=== PATIENT | male | born 1955 | race Caucasian/White ===

== ENCOUNTER 2024-12-07 13:24 | Outpatient (OUT) | payer MEDICARE, OTHER, SELFPAY ==
--- NOTE | 2024-12-07 14:47 | P.CN_ITS ---
Consult Note: HPI Data of Consult Patient: new to practice Consult date: 12/07/24 Requesting Physician: Rebecca Zavala MD Primary Care Provider: LEVAR MOLINA Consult Narrative Reason for consult: bilateral hip, knee pain Narrative: 69yom who presents for evaluation. longstanding history of bilateral hip, knee pain. extensive surgical history, has had lumbar surgery in past. main complaint is difficulty walking any distance. denies any adverse med side effects. cc:: CC: Rebecca Zavala MD Review of Systems ROS Status of ROS 10 or more systems reviewed and unremark able except as noted in history and below Exam Narrative Exam Narrative: Psych-alert and oriented x 3.? Attentive and appropriate, constitutionally normal, displays normal mood and affect per situation.? There are no obvious deficits in memory, reasoning, or intellect.? Skin-no obvious rashes, bruising, erythema noted to the patient's area of pain. Extremities- extremities are warm with minimal edema and palpable pulses. Hip-tenderness to palpation is noted over the bilateral hip joint.? Pain is elicited with internal and external rotation of the hip.? Hip provocative maneuvers are positive and consistent with the patient's normal pain.? Knee-examination of the bilateral knee reveals tenderness to palpation over the superior, inferior, lateral, and medial aspect of the knee.? Some swelling is noted without erythema. Pain is elicited with flexion and extension of the knee both actively and passively.? Some grinding is noted with these motions.? There is no notable ligamental laxity or instability. Coordination remains intact.? Gait remains antalgic. Assessment and Plan Assessment and Plan (1) Bilateral hip pain: (2) Bilateral knee pain: Qualifiers: Chronicity: chronic Qualified Code(s): M25.561 - Pain in right knee; M25.562 - Pain in left knee; G89.29 - Other chronic pain (3) Low back pain: Qualifiers: Chronicity: chronic Back pain laterality: unspecified Sciatica presence: unspecified whether sciatica present Qualified Code(s): M54.50 - Low back pain, unspecified; G89.29 - Other chronic pain Plan 69yom who presents for evaluation. failed conservative measures, as noted. lumbar imaging reviewed, which shows disc bulge at l5-s1 with impingement of s1 nerve roots. given symptoms and exam, will have him undergo xr of sacrum, bilateral hips, and bilateral knees. he is in agreement. meds reviewed, no changes. i recommended that they contact the stimulator rep from [employer] to troubleshoot his battery issues. he expressed understanding. follow up in 2-3 weeks.
== END 2024-12-07 13:25 | disposition home or self-care (01) ==
PROVIDERS: PCP Family Medicine; Visit Provider Anesthesiology
DX: M25.551 Pain in right hip (principal); M25.552 Pain in left hip; M25.561 Pain in right knee; M25.562 Pain in left knee; G89.29 Other chronic pain; M54.50 Low back pain, unspecified; M16.0 Bilateral primary osteoarthritis of hip; M17.0 Bilateral primary osteoarthritis of knee
CPT/HCPCS: G0463

== ENCOUNTER 2024-12-07 14:45 | Outpatient (OUT) | payer MEDICARE, OTHER, SELFPAY ==
--- NOTE | 2024-12-07 15:00 | XR_ITS ---
The [address] [address] Patient Name: CIARA MUNOZ MRN: [id number] date: 1955 Sex: M Assigned Patient Location: [facility] Current Patient Location: Accession/Order Number: [id number] Exam Date: 12/08/2024 08:03 Report Date: 12/08/2024 08:17 At the request of: CARLOS TEAGUE MD Procedure: XR knee MAIRA 4V CLINICAL DATA: Chronic bilateral hip, knee and tailbone pain with difficulty ambulating. BILATERAL HIPS - 2 views each COMPARISON: None AP and frog-lateral views were obtained. There are no acute fractures or dislocation. The hip joint spaces are maintained. There is marginal spurring at the periphery of the femoral heads as well as the superior acetabulum where there is minor subchondral cystic change. There are enthesophytes at the trochanters and ischial tuberosities. No soft tissue abnormalities are noted. XR/XR hip MAIRA IMPRESSION: DEGENERATIVE CHANGES. NO ACUTE BONY FINDINGS. SACRUM AND COCCYX -3 views COMPARISON: None Lateral as well as AP views in upward and downward projection were obtained. There is osteopenia. No fracture or displacement is identified. The SI joints and sacral foramen appear intact. There is minimal sclerosis at the SI joints. There is prior laminectomy and fusion involving the lower imaged lumbar spine. There is also a battery pack on the left that extends up to the spine. No soft tissue abnormalities are seen. IMPRESSION: NO ACUTE BONY FINDINGS. BILATERAL KNEES - 4 views each COMPARISON: None AP, lateral and both oblique views were obtained. There is osteopenia. There are no acute fractures or dislocation. Slight medial tibiofemoral joint compartment narrowing is present bilaterally. Minor marginal spurring is seen, greatest at the posterior patella. There are enthesophytes at the insertion of the quadriceps tendons. No knee effusions or focal soft tissue swelling are noted. There is atherosclerotic disease. IMPRESSION: MINOR DEGENERATIVE CHANGES. NO ACUTE BONY FINDINGS. Impression dictated by: Alyson Negro M.D. 12/08/2024 8:17 AM Dictation Location: [place] [address] Electronically authenticated by: [id number] Y Date: 12/08/2024 08:17
--- NOTE | 2024-12-07 15:00 | XR_ITS ---
The [address] [address] Patient Name: CIARA MUNOZ MRN: [id number] date: 1955 Sex: M Assigned Patient Location: [facility] Current Patient Location: Accession/Order Number: [id number] Exam Date: 12/08/2024 08:03 Report Date: 12/08/2024 08:17 At the request of: CARLOS TEAGUE MD Procedure: XR knee MAIRA 4V CLINICAL DATA: Chronic bilateral hip, knee and tailbone pain with difficulty ambulating. BILATERAL HIPS - 2 views each COMPARISON: None AP and frog-lateral views were obtained. There are no acute fractures or dislocation. The hip joint spaces are maintained. There is marginal spurring at the periphery of the femoral heads as well as the superior acetabulum where there is minor subchondral cystic change. There are enthesophytes at the trochanters and ischial tuberosities. No soft tissue abnormalities are noted. XR/XR sacrum coccyx min 2V IMPRESSION: DEGENERATIVE CHANGES. NO ACUTE BONY FINDINGS. SACRUM AND COCCYX -3 views COMPARISON: None Lateral as well as AP views in upward and downward projection were obtained. There is osteopenia. No fracture or displacement is identified. The SI joints and sacral foramen appear intact. There is minimal sclerosis at the SI joints. There is prior laminectomy and fusion involving the lower imaged lumbar spine. There is also a battery pack on the left that extends up to the spine. No soft tissue abnormalities are seen. IMPRESSION: NO ACUTE BONY FINDINGS. BILATERAL KNEES - 4 views each COMPARISON: None AP, lateral and both oblique views were obtained. There is osteopenia. There are no acute fractures or dislocation. Slight medial tibiofemoral joint compartment narrowing is present bilaterally. Minor marginal spurring is seen, greatest at the posterior patella. There are enthesophytes at the insertion of the quadriceps tendons. No knee effusions or focal soft tissue swelling are noted. There is atherosclerotic disease. IMPRESSION: MINOR DEGENERATIVE CHANGES. NO ACUTE BONY FINDINGS. Impression dictated by: Alyson Negro M.D. 12/08/2024 8:17 AM Dictation Location: [place] [address] Electronically authenticated by: [id number] Y Date: 12/08/2024 08:17
--- NOTE | 2024-12-07 15:00 | XR_ITS ---
The [address] [address] Patient Name: CIARA MUNOZ MRN: [id number] date: 1955 Sex: M Assigned Patient Location: [facility] Current Patient Location: Accession/Order Number: [id number] Exam Date: 12/08/2024 08:03 Report Date: 12/08/2024 08:17 At the request of: CARLOS TEAGUE MD Procedure: XR knee MAIRA 4V CLINICAL DATA: Chronic bilateral hip, knee and tailbone pain with difficulty ambulating. BILATERAL HIPS - 2 views each COMPARISON: None AP and frog-lateral views were obtained. There are no acute fractures or dislocation. The hip joint spaces are maintained. There is marginal spurring at the periphery of the femoral heads as well as the superior acetabulum where there is minor subchondral cystic change. There are enthesophytes at the trochanters and ischial tuberosities. No soft tissue abnormalities are noted. XR/XR knee MAIRA 4V IMPRESSION: DEGENERATIVE CHANGES. NO ACUTE BONY FINDINGS. SACRUM AND COCCYX -3 views COMPARISON: None Lateral as well as AP views in upward and downward projection were obtained. There is osteopenia. No fracture or displacement is identified. The SI joints and sacral foramen appear intact. There is minimal sclerosis at the SI joints. There is prior laminectomy and fusion involving the lower imaged lumbar spine. There is also a battery pack on the left that extends up to the spine. No soft tissue abnormalities are seen. IMPRESSION: NO ACUTE BONY FINDINGS. BILATERAL KNEES - 4 views each COMPARISON: None AP, lateral and both oblique views were obtained. There is osteopenia. There are no acute fractures or dislocation. Slight medial tibiofemoral joint compartment narrowing is present bilaterally. Minor marginal spurring is seen, greatest at the posterior patella. There are enthesophytes at the insertion of the quadriceps tendons. No knee effusions or focal soft tissue swelling are noted. There is atherosclerotic disease. IMPRESSION: MINOR DEGENERATIVE CHANGES. NO ACUTE BONY FINDINGS. Impression dictated by: Alyson Negro M.D. 12/08/2024 8:17 AM Dictation Location: [place] [address] Electronically authenticated by: [id number] Y Date: 12/08/2024 08:17
== END 2024-12-07 14:46 | disposition home or self-care (01) ==
LOC: RAD 14:47
PROVIDERS: PCP Family Medicine; Visit Provider Anesthesiology
DX: M25.551 Pain in right hip (principal); M25.552 Pain in left hip; M25.561 Pain in right knee; M25.562 Pain in left knee; M16.0 Bilateral primary osteoarthritis of hip; M17.0 Bilateral primary osteoarthritis of knee
CPT/HCPCS: 72220; 73522; 73564

== ENCOUNTER 2024-12-23 09:58 | Outpatient (OUT) | payer MEDICARE, OTHER, SELFPAY ==
--- OUTSIDE RECORDS SUMMARY | 2024-12-23 09:59 | XMS_ITS | Encounter Summary ---
Author Organization [facility] Address [address] [place] [address] Phone Care Team Providers Care Paste Thinner Name Role Phone David Pérez MD Primary Care Provider Reason for Referral * Imaging (Routine) - Closed Specialty Diagnoses / Procedures Referred By Meri carballo Referred To Contact Radiology Diagnoses Pain in left shoulder Procedures CT shoulder left wo IV contrast Valerio Yu DO Phone: tel: fax: Referral ID Status Reason Start Date Expiration Date V isits Requested Visits Authorized [id number] Closed Perform Procedure 09/23/2023 09/22/2024 1 1 Encounter Details Date Type Department Care Team (Latest Contact Info) Description 09/23/2023 Transcribe Orders [facility] [address] [place] [phone] Valerio Yu DO [address] [place] [address] Pain in left shoulder (Primary Dx) Social History Tobacco Use Types Packs/Day Years Used Date Smoking Tobacco: Never Assessed Sex and Gender Information Value Date Recorded Sex Assigned at Not on file Legal Sex Male 8:27 PM EST Gender Identity Not on file Sexual Orientation Not on file COVID-19 Exposure Response Date Recorded In the last 10 days, have yo u been in contact with someone who was confirmed or suspected to have Coronavirus/COVID-19? No / Unsure 09/23/2023 11:31 AM EDT documented as of this encounter Plan of Treatment Not on file documented as of this encounter Results * CT shoulder left wo IV contrast (09/23/2023 12:25 PM EDT) Anatomical Region Laterality Modality Musculoskeletal Left Computed Tomogra phy 09/24/2023 3:34 PM EDT 09/24/2023 3:34 PM EDT Impressions 09/24/2023 3:33 PM EDT Reverse left total shoulder arthroplasty with 6 mm gap between the glenoid component-bone interface and protrusion of 3 superior glenoid screws into the spinoglenoid notch by approximately 11 mm. MACRO: None Signed by: Laina Presley 09/24/2023 3:33 PM Dictation workstation: [id number] Narrative 09/24/2023 3:33 PM EDT Interpreted By: Laina Presley, STUDY: CT SHOULDER LEFT WO IV CONTRAST; 09/23/2023 12:25 pm INDICATION: Signs/Symptoms:RIGHT SHOULDER PAIN. COMPARISON: CT shoulder 04/02/2023. ACCESSION NUMBER(S): [id number] ORDERING CLINICIAN: VALERIO YU TECHNIQUE: CT imaging of the left shoulder was obtained without administration of intravenous contrast medium. Coronal and sagittal reformatted images were performed. 3D reconstruction was performed at an independent workstation and reviewed by the interpreting radiologist. FINDINGS: OSSEOUS STRUCTURES: Status post interval reverse total shoulder arthroplasty. There is a gap at the glenoid component-bone interface measuring up to 6 mm (series 1012, image 65). The most superior 3 glenoid screws protrude through the superomedial cortex of the glenoid by approximately 11 mm into the spinoglenoid notch (series 1012, image 67). No hardware fracture. No glenoid notching. No acromial fracture. Severe acromioclavicular osteoarthritis. No sizable glenohumeral joint effusion. SOFT TISSUES: Muscle bulk is maintained. No subcutaneous. For reassurance. Unchanged inferior left thyroid calcifications. Imaged left lung is clear. Procedure Note Laina Presley, DO - 09/24/2023 Interpreted By: Laina Presley, STUDY: CT SHOULDER LEFT WO IV CONTRAST; 09/23/2023 12:25 pm INDICATION: Signs/Symptoms:RIGHT SHOULDER PAIN. COMPARISON: CT shoulder 04/02/2023. ACCESSION NUMBER(S): [id number] ORDERING CLINICIAN: VALERIO YU TECHNIQUE: CT imaging of the left shoulder was obtained without administration of intravenous contrast medium. Coronal and sagittal reformatted images were performed. 3D reconstruction was performed at an independent workstation and reviewed by the interpreting radiologist. FINDINGS: OSSEOUS STRUCTURES: Status post interval reverse total shoulder arthroplasty. There is a gap at the glenoid component-bone interface measuring up to 6 mm (series 1012, image 65). The most superior 3 glenoid screws protrude through the superomedial cortex of the glenoid by approximately 11 mm into the spinoglenoid notch (series 1012, image 67). No hardware fracture. No glenoid notching. No acromial fracture. Severe acromioclavicular osteoarthritis. No sizable glenohumeral joint effusion. SOFT TISSUES: Muscle bulk is maintained. No subcutaneous. For reassurance. Unchanged inferior left thyroid calcifications. Imaged left lung is clear. IMPRESSION: Reverse left total shoulder arthroplasty with 6 mm gap between the glenoid component-bone interface and protrusion of 3 superior glenoid screws into the spinoglenoid notch by approximately 11 mm. MACRO: None Signed by: Laina Presley 09/24/2023 3:33 PM Dictation workstation: [id number] us Valerio Yu DO IMG CT PROCEDURES Final Res ult documented in this encounter Visit Diagnoses Diagnosis Pain in left shoulder- Primary Pain in left shoulder documented in this encounter Care Teams Paste Thinner Relationship Specialty Start Date End Date David Pérez MD PCP - General Family Medicine 04/02/23 documented as of this encounter
--- OUTSIDE RECORDS SUMMARY | 2024-12-23 09:59 | XMS_ITS | Encounter Summary ---
Author Organization [facility] Address [address] [facility] 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 No / Unsure 01/15/2024 1:55 PM EDT documented as of this encounter Plan of Treatment Not on file documented as of this encounter Visit Diagnoses Diagnosis Postprocedural seroma of a musculoskeletal structure following a musculoskeletal system procedure- Primary documented in this encounter Care Teams Bi Technical Lead Relationship Specialty Start Date End Date David Pérez MD PCP - General Family Medicine 04/02/23 documented as of this encounter
--- OUTSIDE RECORDS SUMMARY | 2024-12-23 10:01 | XMS_ITS | Encounter Summary ---
Author Organization [facility] Address [address] [facility] [place] [address] Phone Care Team Providers Care Child Support Investigator Name Role Phone David Pérez MD Primary Care Provider Reason for Referral * Imaging (Routine) - Authorized Specialty Diagnoses / Procedures Referred By Meri carblalo Referred To Contact Radiology Diagnoses Primary osteoarthritis, left shoulder Procedures CT shoulder left wo IV contrast Valerio Yu DO Phone: tel: fax: Referral ID Status Reason Start Date Expiration Date Visits Requested Visits Authorized [id number] Authorized Perform Procedure 3 04/01/2024 1 1 Encounter Details Date Type Department Care Team (Latest Contact Info) Description 04/02/2023 Transcribe Orders [facility] [address] [address] [place] [phone] Valerio Yu DO [address] [place] [address] Primary osteoarthritis, left shoulder (Primary Dx) Social History Tobacco [...] suspected to have Coronavirus/COVID-19? No / Unsure 04/02/2023 11:27 AM EDT documented as of this encounter Plan of Treatment Not on file documented as of this encounter Results * CT shoulder left wo IV contrast (04/02/2023 12:09 PM EDT) Anatomical Region Laterality Modality Musculoskeletal Left Computed Tomogra phy 04/02/2023 12:5 3 PM EDT 04/02/2023 12:53 PM EDT Impressions 04/02/2023 12:52 PM EDT Moderate AC joint and glenohumeral osteoarthrosis. Signed by: Teo Baum 04/02/2023 12:52 PM Dictation workstation: [id number] Narrative 04/02/2023 12:52 PM EDT Interpreted By: Teo Baum, STUDY: CT SHOULDER LEFT WO IV CONTRAST; 04/02/2023 12:09 pm INDICATION: Signs/Symptoms:left shoulder arthritis; /preop left shoulder/follow-up after MRI shoulder/left neck shoulder elbow and arm pain according to note COMPARISON: None ACCESSION NUMBER(S): [id number] ORDERING CLINICIAN: VLAERIO YU TECHNIQUE: Contiguous axial images were obtained through the left shoulder. FINDINGS: No acute fracture or dislocation is identified. Cervical fixation plate can be seen. Moderate to severe AC joint osteoarthrosis and glenohumeral osteoarthrosis is seen. Limited visualization of the left intrathoracic structures are grossly unremarkable. Procedure Note Teo Baum MD - 04/02/2023 Interpreted By: Teo Baum, STUDY: CT SHOULDER LEFT WO IV CONTRAST; 04/02/2023 12:09 pm INDICATION: Signs/Symptoms:left shoulder arthritis; /preop left shoulder/follow-up after MRI shoulder/left neck shoulder elbow and arm pain according to note COMPARISON: None ACCESSION NUMBER(S): [id number] ORDERING CLINICIAN: VALERIO YU TECHNIQUE: Contiguous axial images were obtained through the left shoulder. FINDINGS: No acute fracture or dislocation is identified. Cervical fixation plate can be seen. Moderate to severe AC joint osteoarthrosis and glenohumeral osteoarthrosis is seen. Limited visualization of the left intrathoracic structures are grossly unremarkable. IMPRESSION: Moderate AC joint and glenohumeral osteoarthrosis. Signed by: Teo Baum 04/02/2023 12:52 PM Dictation workstation: [id number] Valerio Yu DO IMG CT PROCEDURES Final Res ult documented in this encounter Visit Diagnoses Diagnosis Primary osteoarthritis, left shoulder- Primary Primary osteoarthritis, left shoulder documented in this encounter Care Teams Child Support Investigator Relationship Specialty Start Date End Date David Pérez MD PCP - General Family Medicine 04/02/23 documented as of this encounter
--- NOTE | 2024-12-23 10:38 | PM.CN ---
Consult Note: HPI Data of Consult Patient: known to practice within the last 3 years Requesting Physician: Audrey Angle NP Primary Care Provider: LEVAR MOLINA Consult Narrative Reason for consult: f/u Narrative: Tito Guillen a pleasant 69 year old male with chronic bilateral knee, bilateral hip, and chronic moderate to severe low back pain post lumbar surgery. Per pt request will address low back pain as the focus today. Pt has noticed significant increase in his low back pain over the last 3 months, moreso the lsat 6 weeks, he had a fall with injury of ribs in september but the back pain was tolerable at this time. PCP recently completed a lumbar xray, no report available but pt reports inflammation , and increased prednisone. pt currently utilizing tylenol, prednisone, gabapentin, meloxicam, and thc gummies without improvement. pain today 9-10/10 sharp low back pain increasing with standing, weightbearing, activity, bending, twisting. cc:: CC: Audrey Angel NP Review of Systems ROS Musculoskeletal Reports: back pain and joint pain Meds Home Medications and Allergies Home Medications �Medication �Instructions �Recorded �Confirmed �Type acetaminophen 500 mg tablet 1,000 mg PO BID PRN pain 12/09/24 12/09/24 History (Acetaminophen Extra Strength) atenolol 100 mg tablet 100 mg PO DAILY 12/09/24 12/09/24 History calcium phosphate,dibasic 77 tab PO 12/09/24 History mg-vitamin D3 400 unit tablet camphor-menthol 0.2 %-3.5 % 1 applic topical TID-QID PRN pain 12/09/24 12/09/24 History topical gel citalopram 40 mg tablet (Celexa) 40 mg PO DAILY 12/09/24 12/09/24 History diclofenac sodium 1 % topical gel 2 g topical QID 12/09/24 12/09/24 History (Voltaren Arthritis Pain) docusate sodium 100 mg capsule 200 mg PO DAILY 12/09/24 12/09/24 History (Colace) furosemide 20 mg tablet (Lasix) 20 mg PO DAILY 12/09/24 12/09/24 History gabapentin 600 mg tablet 600 mg PO BID 12/09/24 12/09/24 History golimumab 12.5 mg/mL intravenous IV 12/09/24 History solution (Simponi ARIA) levothyroxine 50 mcg tablet 50 mcg PO DAILY 12/09/24 12/09/24 History (Synthroid) lisinopril 20 mg tablet 20 mg PO DAILY 12/09/24 12/09/24 History meloxicam 7.5 mg tablet 7.5 mg PO DAILY 12/09/24 12/09/24 History metformin 1,000 mg tablet 1,000 mg PO BID 12/09/24 12/09/24 History multivitamin 1 tab PO DAILY 12/09/24 12/09/24 History pantoprazole 20 mg tablet,delayed 20 mg PO DAILY 12/09/24 12/09/24 History release pravastatin 10 mg tablet 10 mg PO DAILY 12/09/24 12/09/24 History prednisone 5 mg tablet 5 mg PO DAILY PRN pain 12/09/24 12/09/24 History spironolactone 25 1 tab PO DAILY 12/09/24 12/09/24 History mg-hydrochlorothiazide 25 mg tablet sulfasalazine 500 mg tablet 1,000 mg PO BID 12/09/24 12/09/24 History tamsulosin 0.4 mg capsule (Flomax) 0.4 mg PO DAILY 12/09/24 12/09/24 History Allergies Allergy/AdvReac Type Severity Reaction Status Date / Time paroxetine Allergy Mild Rash Verified 12/09/24 14:21 Exam Constitutional Documenting provider has reviewed patient's vital signs: yes Common normals: no apparent distress, oriented x3, healthy appearing, alert and well nourished General appearance: cooperative [facility] Common normals: normocephalic, hearing grossly normal bilaterally and moist oral mucous membranes Head and scalp: normocephalic Eye Common normals: PERRL Pupil: PERRL Neck & C-Spine Common normals: full ROM General: normal visual inspection Chest Common normals: inspection of chest normal Respiratory Common normals: normal respiratory effort, no retractions and no use of accessory muscles Back & Pelvis Lumbar spine/lower back: ROM limited, pain with ROM and lumbar spinal tenderness Sacroiliac joints: SI joint(s) abnormal Other: left sij positive chung(patricks), gaenslens, thigh thrust, compression test strength 5/5 in BLE positive facet loading Neuro Common normals: oriented x3 Sensorium/orientation: alert Psych Common normals: mental status grossly normal, thought process normal, cooperative, affect normal, speech normal and activity/motor behavior normal Speech: normal speech Thought process: normal thought process Results Additional Findings Additional findings: If on a controlled substance or opioids, I have checked an [place] report on this patient and there are no aberrancies noted in the prescribing history.��If on a controlled substance or opioid a drug screen was completed and reviewed within the last year, and if there has not been a drug screen completed we ordered one today to monitor higher risk, state monitored pain medication use. As part of providing excellent, safe, comprehensive care, the following was completed at our patient's visit: 1. A medication reconciliation and review to ensure accurate knowledge of current/active medications, including asking our patients to inform us about any [id number] medications or herbal remedies/nutritional supplements/alternative remedies. 2. A review to specifically ensure our patients have had annual screening for screening for depression, screening for tobacco use, and screening for unhealthy alcohol use. For concerning screenings had a discussion with the patient, provided patient education, and recommended follow-up with primary care provider when appropriate. If patient noted with a risk of falling, they received education on strength, gait, and balance training to prevent future risk of falling. Portions of this note may have been carried over from the previous visit and updated as appropriate. Please note this office utilizes paper charting in addition to the electronic medical record. A list of current medications, vitals, and PMH is available there as the clinical staff outside of myself do not have access to [employer] charting during the clinic day operations. As part of providing quality comprehensive care the current medications, vitals, and PMH were reviewed in the paper chart. Assessment and Plan Assessment and Plan (1) Failed back syndrome: Assessment and Plan: The patient has had over 3 months of moderate to severe low back pain with functional impairment and inadequate response to conservative care including NSAIDS (unless there are contraindication such as concurrent blood thinners), multiple oral or topical pain medications, and home exercise program/physical therapy.� Patient has completed >6 weeks of guided home exercise program and/or formal physical therapy program without relief of their symptoms.� The Oswestry Disability Index was completed, and the patient scored a 50%.� The patient noted the following:�� moderate to severe pain impacting ADLs, sitting, standing, sleeping, social life, travel We discussed the risks and benefits of the procedure with the patient, and we are NOT planning on using sedation as outlined in the guidelines from Medicare unless there is a documented reason that sedation would be strongly recommended.�� �The procedure will be completed with fluoroscopic guidance.� (2) Sacroiliitis: (3) Bilateral knee pain: Assessment and Plan: bilateral knee OA based on xray imaging, consider joint injections Qualifiers: Chronicity: chronic Qualified Code(s): M25.561 - Pain in right knee; M25.562 - Pain in left knee; G89.29 - Other chronic pain (4) Bilateral hip pain: Assessment and Plan: mild OA based on xray imaging, consider joint injections (5) Myalgia, other site: Plan at this time update lumbar MRI with and without contrast to assess failed back syndrome contact information provided for [email or web address], has a scs in place but is not finding benefit and would like the device evaluated. can consider swapping out for [employer] in the future proceed with left SIJ injection under fluoroscopy for sacroilitis start baclofen 5-10mg BID PRN pain/spasms, risks vs benefits reviewed. concerned for polypharmacy and increased dizziness/drowsiness. pt to utilize sparingly continue medication management through PCP f/u to review imaging and 2 weeks after SIJ injection. will revisit chronic joint pain at that time
== END 2024-12-23 09:59 | disposition home or self-care (01) ==
PROVIDERS: PCP Family Medicine; Visit Provider Nurse Practitioner
DX: M25.561 Pain in right knee (principal); M96.1 Postlaminectomy syndrome, not elsewhere classified; M46.1 Sacroiliitis, not elsewhere classified; M25.562 Pain in left knee; G89.29 Other chronic pain; M25.551 Pain in right hip; M25.552 Pain in left hip; M79.18 Myalgia, other site
CPT/HCPCS: G0463

== ENCOUNTER 2025-01-06 11:40 | Outpatient (OUT) | payer MEDICARE, OTHER, SELFPAY ==
--- OUTSIDE RECORDS SUMMARY | 2024-12-31 20:39 | XMS_ITS | Continuity of Care Document ---
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 Role Phone David Pérez MD Primary Care Provider Dmitry Eugene MD Attending Provider Latanya Villeda Attending Provider Care Teams Patient Care Team Team Status: Active Member Role Status Dates David Préez MD Primary Care Provider Active Visit Care Team Team Status: Inactive Member Role Status Dates David Pérez MD Primary Care Provider Active Start: November 05, 2024 End: November 05, 2024 Dmitry Eugene MD Attending Provider Active St art: November 05, 2024 End: November 05, 2024 Patient Care Team Team Status: Inactive Member Role Status Dates David Pérez MD Primary Care Provider Active Start: December 31, 2024 End: December 31, 2024 HA Canela Attending Provider Active Start: December 31, 2024 End: December 31, 2024 Chief Complaint and Reason for Visit Chief Complaint Admit Date l40.51 November 05, 2024 10:48 am L40.51 Z79.899 December 31, 2024 12:4 9pm Allergies, Adverse Reactions, Alerts Allergen Type Severity Reaction Last Updated Verified Status paroxetine Allergy Unknown rash April 02, 2024 9:22am Yes Active Social History Smoking Status Status Start Date End Date Date of Observa tion Ex-smoker (finding) January 102023 10:42am Observation Status Observation Response Date of Response Legal Sex Male (finding) Sex Assigned At Male 1955 Family History Relationship Condition Age at Onset Recorded Date/T robb father Malignant neoplasm Unknown Unknown mother Unknown Diabetes mellitus Unknown Problems Active Problems Medical Problem Onset Date Status Trochanteric bursitis of both hips Unknown Active Cirrhosis of liver Unknown Active History of lumbar fusion Unknown Active Arthropathy of both hips Unknown Active History of shoulder replacement Unknown Active Medications Medication Status Dose Units Route Directions Qty Days St art Date Stop Date End Date Instructions Adherence Metformin 500 MG tablet Discont inued 500 MG PO Twice daily [facility] 2016 1:00am 2023 10:36 am Sulfasalazi ne 500 MG tablet Discont inued 1000 MG PO Twice daily [facility] 2016 1:00am 2023 10:36 am Atenolol 100 MG tablet Active 100 MG PO Daily [facility] 2016 1:00am Unknown Hydrochloro thiazide 50 MG tablet Discont inued 50 MG PO Daily [facility] 2016 1:00am Oct er 2023 9:30a m Lisinopril 20 MG tablet Discont inued 20 MG PO Daily [facility] 2016 1:00am 2023 10:36 am Citalopram 20 MG tablet Discont inued 20 MG PO Daily [facility] 2016 1:00am 2023 10:38 am Infliximab (Remicade) 100 mg Recon Soln Discont inued 700 ML IV EVERY 6 WEEKS [facility] 2016 1:00am 2023 10:35 am Aspirin-Dat taminophen- Caffeine 250-250-65 mg Tablet Discont inued 1 TAB PO EVERY 4-6 HOURS as needed for Pain [facility] 2016 1:00am 2023 10:27 am Cholecalcif ruslan (Vitamin D3) (Vitamin D3) 2,000 unit Tablet Discont inued 2000 UNIT PO Daily [facility] 2016 1:00am Oct er 2023 9:31a m Citalopram 20 mg tablet Active 40 MG PO Daily January 11, 2024 10:30a m Unknown Cholecalcif ruslan (Vitamin D3) (Vitamin D3) 50 mcg (2,000 unit) tablet Active 2000 UNIT PO Daily Octobe r 2023 9:30am Unknown Acetaminoph en 500 mg capsule Active 500 MG PO Every 6 hours as needed January 11, 2024 12:00a m Unknown Aspirin (Adult Aspirin Regimen) 81 mg tablet,angelica yed release (DR/EC) Discont inued 81 MG PO Daily January 11, 2024 12:00a m Octob er 2023 9:31a m Cephalexin 500 mg capsule Discont inued 500 MG PO Twice daily January 11, 2024 12:00a m Octob er 2023 9:31a m Docusate Sodium 100 mg capsule Discont inued 100 MG PO Daily January 11, 2024 12:00a m Octob er 2023 9:31a m Gabapentin 300 mg capsule Discont inued 300 MG PO Three times daily January 11, 2024 12:00a m Octob er 2023 9:29a m Spironolact on-Hydrochl orothiaz 25-25 mg tablet Active 1 TAB PO Daily January 11, 2024 12:00a m Unknown Levothyroxi ne 50 mcg capsule Active 50 MCG PO Daily January 11, 2024 12:00a m Unknown Lisinopril 20 mg tablet Active 20 MG PO Daily January 11, 2024 12:00a m Unknown Meloxicam 7.5 mg tablet Discont inued 7.5 MG PO Twice daily January 11, 2024 12:00a m Octob er 2023 9:30a m Metformin 1,000 mg tablet Active 1000 MG PO Twice daily January 11, 2024 12:00a m Unknown Multivitami n-Minerals- Lutein tablet Active 1 TAB PO Daily January 11, 2024 12:00a m Unknown Hydrocodone Bitartrate 10 mg capsule, oral only, ER 12hr Discont inued 10 MG PO Every 12 hours January 11, 2024 12:00a m Augus t 2023 10:39 am 1/2 tab - 1 tab BID PRN Pravastatin 10 mg tablet Active 10 MG PO Daily January 11, 2024 12:00a m Unknown Tamsulosin (Flomax) 0.4 mg capsule Discont inued 0.4 MG PO Daily January 11, 2024 12:00a m Octob er 2023 9:30a m Golimumab (Simponi Aria) 12.5 mg/mL solution Discont inued IV January 11, 2024 12:00a m Octob er 2023 9:31a m Oxycodone 5 mg capsule Discont inued 5 MG PO Every 6 hours as needed January 11, 2024 12:00a m Octob er 2023 9:30a m Golimumab (Simponi Aria) 12.5 mg/mL solution Active IV Octobe r 2023 9:25am every 8 weeks Unknown Docusate Sodium 100 mg capsule Active 200 MG PO Daily Octobe r 2023 9:30am Unknown Sulfasalazi ne 500 mg tablet Active 1 GM PO Twice daily Octobe r 2023 12:00a m give with food (meal/snack) Unknown Prednisone 5 mg tablet Active 10 MG PO Daily Octobe r 2023 12:00a m 1-2 tablets as needed Unknown Gabapentin 600 mg tablet Active 600 MG PO Three times daily Octobe r 2023 12:00a m Unknown Furosemide 20 mg tablet Active 20 MG PO Daily Octobe r 2023 12:00a m Unknown Relevant Diagnostic Tests and/or Laboratory Data Laboratory Results Test Collection Date/Time Result Date/Time Result Interpretation Reference Range Result Comment Performing Site Correcte d White Blood Count November 05, 2024 10:13am November 05, 2024 12:26pm 5.7 10*3/uL 4.1-10.5 [facility] [id number] [address] [facility] [address] Correcte d White Blood Count December 31, 2024 12:35pm December 31, 2024 4:23pm 5.6 10*3/uL 4.1-10.5 [facility] [id number] [address] [facility] [address] Uncorrec wendy WBC Count November 05, 2024 10:13am November 05, 2024 12:26pm 5.7 10*3/uL 4.1-10.5 [facility] [id number] [address] [facility] 264[address] Uncorrec wendy WBC Count December 31, 2024 12:35pm December 31, 2024 4:23pm 5.6 10*3/uL 4.1-10.5 [facility] [id number] [address] [facility] [address] Red Blood Count November 05, 2024 10:13am November 05, 2024 12:26pm 4.45 10*6/uL 3.90-5.60 [facility] [id number] [address] [facility] 78184 Red Blood Count December 31, 2024 12:35pm December 31, 2024 4:23pm 4.46 10*6/uL 3.90-5.60 [facility] [id number] [address] [facility] 9[address]92 Hemoglob in November 05, 2024 10:13am November 05, 2024 12:26pm 13.4 g/dL 13.0-17.0 [facility] [id number] [address] [facility] 8[address] Hemoglob in December 31, 2024 12:35pm December 31, 2024 4:23pm 13.2 g/dL 13.0-17.0 [facility] [id number] [address] [place] [address] Hematocr it November 05, 2024 10:13am November 05, 2024 12:26pm 38.9 % 38.8-50.0 [facility] [id number] [address] [place] [address]57 Hematocr it December 31, 2024 12:35pm December 31, 2024 4:23pm 39.6 % 38.8-50.0 [facility] [id number] [address] [facility] [address] Mean Corpuscu lar Volume November 05, 2024 10:13am November 05, 2024 12:26pm 87.5 fL 83.5-101 [facility] [id number] [address] [place] [address] Mean Corpuscu lar Volume December 31, 2024 12:35pm December 31, 2024 4:23pm 88.8 fL 83.5-101 [facility] [id number] [address] [place] [address] Mean Corpuscu lar Hemoglob in November 05, 2024 10:13am November 05, 2024 12:26pm 30.1 pg 27.5-35.2 [facility] [id number] [address] [facility] 116[address] Mean Corpuscu lar Hemoglob in December 31, 2024 12:35pm December 31, 2024 4:23pm 29.5 pg 27.5-35.2 [facility] [id number] [address] [facility] [address] Mean Corpuscu lar Hemoglob in [facility] November 05, 2024 10:13am November 05, 2024 12:26pm 34.4 g/dL 32.5-35.6 [facility] [id number] [address] [facility] [address] Mean Corpuscu lar Hemoglob in [facility] December 31, 2024 12:35pm December 31, 2024 4:23pm 33.3 g/dL 32.5-35.6 [facility] [id number] [address] [place] [address]996 Red Cell Distribu tion Width November 05, 2024 10:13am November 05, 2024 12:26pm 14.1 % 12.0-14.8 [facility] [id number] [address] [facility] 0[address] Red Cell Distribu tion Width December 31, 2024 12:35pm December 31, 2024 4:23pm 14.3 % 12.0-14.8 [facility] [id number] [address] [place] [address] 19776 Platelet Count November 05, 2024 10:13am November 05, 2024 12:26pm 153 10*3/uL 150-450 [facility] [id number] [address] [place] [address]34 Platelet Count December 31, 2024 12:35pm December 31, 2024 4:23pm 143 10*3/uL Below low normal 150-450 [facility] [id number] [address] [place] [address] 21670 Mean Platelet Volume November 05, 2024 10:13am November 05, 2024 12:26pm 8.7 fL 6.6-10.1 [facility] [id number] [address] [place] [address] 16707 Mean Platelet Volume December 31, 2024 12:35pm December 31, 2024 4:23pm 9.8 fL 6.6-10.1 [facility] [id number] [address] [facility] [address] Neutroph ils (%) (Auto) November 05, 2024 10:13am November 05, 2024 12:26pm 59.9 % . [facility] [id number] [address] [facility] [address] Neutroph ils (%) (Auto) December 31, 2024 12:35pm December 31, 2024 4:23pm 64.6 % . [facility] [id number] [address] [facility] [address] Lymphocy jos (%) (Auto) November 05, 2024 10:13am November 05, 2024 12:26pm 24.4 % . [facility] [id number] [address] [facility] [address] Lymphocy jos (%) (Auto) December 31, 2024 12:35pm December 31, 2024 4:23pm 23.9 % . [facility] [id number] [address] [facility] [address]77 Monocyte s (%) (Auto) November 05, 2024 10:13am November 05, 2024 12:26pm 9.4 % . [facility] [id number] [address] [facility] [address] Monocyte s (%) (Auto) December 31, 2024 12:35pm December 31, 2024 4:23pm 8.3 % . [facility] [id number] [address] [facility] [address] Eosinoph ils (%) (Auto) November 05, 2024 10:13am November 05, 2024 12:26pm 5.3 % . [facility] [id number] [address] [facility] [address] Eosinoph ils (%) (Auto) December 31, 2024 12:35pm December 31, 2024 4:23pm 2.3 % . [facility] [id number] [address] [facility] [address] Basophil s (%) (Auto) November 05, 2024 10:13am November 05, 2024 12:26pm 1.0 % . [facility] [id number] [address] [facility] [address] Basophil s (%) (Auto) December 31, 2024 12:35pm December 31, 2024 4:23pm 0.9 % . [facility] [id number] [address] [facility] [address] Nucleate d RBC Relative Count (auto) November 05, 2024 10:13am November 05, 2024 12:26pm 0.1 /100{WBC} 0-0.5 [facility] [id number] [address] [facility] [address] Nucleate d RBC Relative Count (auto) December 31, 2024 12:35pm December 31, 2024 4:23pm 0.1 /100{WBC} 0-0.5 [facility] [id number] [address] [place] [address] 60558 Neutroph ils # (Auto) November 05, 2024 10:13am November 05, 2024 12:26pm 3.4 10*3/uL 1.8-7.7 [facility] [id number] [address] [place] [id number] Neutroph ils # (Auto) December 31, 2024 12:35pm December 31, 2024 4:23pm 3.6 10*3/uL 1.8-7.7 [facility] [id number] [address] [place], [place] [address] Lymphocy jos # (Auto) November 05, 2024 10:13am November 05, 2024 12:26pm 1.4 10*3/uL 1.00-4.8 [facility] [id number] [address] [place] [address] 26737 Lymphocy jos # (Auto) December 31, 2024 12:35pm December 31, 2024 4:23pm 1.3 10*3/uL 1.00-4.8 [facility] [id number] [address] [place], [place] [id number] Monocyte s # (Auto) November 05, 2024 10:13am November 05, 2024 12:26pm 0.5 10*3/uL 0.0-0.8 [facility] [id number] [address] [place] [address] 62492 Monocyte s # (Auto) December 31, 2024 12:35pm December 31, 2024 4:23pm 0.5 10*3/uL 0.0-0.8 [facility] [id number] [address] [place] [id number] Eosinoph ils # (Auto) November 05, 2024 10:13am November 05, 2024 12:26pm 0.3 10*3/uL 0.0-0.45 [facility] [id number] [address] [place] [id number] Eosinoph ils # (Auto) December 31, 2024 12:35pm December 31, 2024 4:23pm 0.1 10*3/uL 0.0-0.45 [facility] [id number] [address] [place], [place] [address] Basophil s # (Auto) November 05, 2024 10:13am November 05, 2024 12:26pm 0.1 10*3/uL 0.0-0.2 [facility] [id number] [address] [place], [place] [address] Basophil s # (Auto) December 31, 2024 12:35pm December 31, 2024 4:23pm 0.0 10*3/uL 0.0-0.2 [facility] [id number] [address] [place] [address] 8[address]50 Erythroc yte Sediment ation Rate November 05, 2024 10:13am November 05, 2024 12:51pm 30 mm/hr Above high normal 0-19 [facility] [id number] [address] [place], [place] [address] Erythroc yte Sediment ation Rate December 31, 2024 12:35pm December 31, 2024 4:48pm 27 mm/hr Above high normal 0-19 [facility] [id number] [address] [place], [place] [address] Urine Color December 31, 2024 12:35pm December 31, 2024 4:22pm Yellow Yellow [facility] [id number] [address] [place], [place] [address] Urine Appearan ce December 31, 2024 12:35pm December 31, 2024 4:22pm Clear Clear [facility] [id number] [address] [facility] 87693 Urine Specific Henderson December 31, 2024 12:35pm December 31, 2024 4:22pm 1.019 1.001-1.03 0 [facility] [id number] [address] [place] [address] 47669 Urine pH December 31, 2024 12:35pm December 31, 2024 4:22pm 5.0 5.0-9.0 [facility] [id number] [address] [place] [address] 37399 Urine Leukocyt e Esterase December 31, 2024 12:35pm December 31, 2024 4:22pm Negative Negative [facility] [id number] [address] [place] [address] 56546 Urine Nitrite December 31, 2024 12:35pm December 31, 2024 4:22pm Negative Negative [facility] [id number] [address] [place] [address] 66917 Urine Protein December 31, 2024 12:35pm December 31, 2024 4:22pm Negative mg/dL Negative [facility] [id number] [address] [place] [address] 94536 Urine Glucose (UA) December 31, 2024 12:35pm December 31, 2024 4:22pm Normal mg/dL Normal [facility] [id number] [address] [place] [address] 99195 Urine Ketones December 31, 2024 12:35pm December 31, 2024 4:22pm Negative Negative [facility] [id number] [address] [place] [address] 56721 Urine Urobilin ogen December 31, 2024 12:35pm December 31, 2024 4:22pm Normal mg/dL Normal [facility] [id number] [address] [place] [address] 6[address]88 Urine Bilirubi n December 31, 2024 12:35pm December 31, 2024 4:22pm Negative Negative [facility] [id number] [address] [place] [address] 62614 Urine Occult Blood December 31, 2024 12:35pm December 31, 2024 4:22pm Negative Negative [facility] [id number] [address] [place] [address] 32151 Urine RBC December 31, 2024 12:35pm December 31, 2024 4:36pm None seen [HPF] 0-4 [facility] [id number] [address] [facility] [address]73 Urine WBC December 31, 2024 12:35pm December 31, 2024 4:36pm 1-2 [HPF] 0-4 [facility] [id number] [address] [facility] 48027 Urine Squamous Epitheli al Cells December 31, 2024 12:35pm December 31, 2024 4:36pm 1-2 [HPF] 0-2 [facility] [id number] [address] [facility] [address]37 Urine Bacteria December 31, 2024 12:35pm December 31, 2024 4:36pm None seen [HPF] None Seen [facility] [id number] [address] [facility] [address] Urine Hyaline Casts December 31, 2024 12:35pm December 31, 2024 4:36pm 9-19 [LPF] Above high normal 0-8 [facility] [id number] [address] [facility] 6[address]05 Urine Mucus December 31, 2024 12:35pm December 31, 2024 4:36pm Rare [LPF] [facility] [id number] [address] [facility] [address] Glucose Level November 05, 2024 10:13am November 05, 2024 12:42pm 197 mg/dL Above high normal 70-100 ADA recommended reference rangeRandom Glucose Reference Range is dependent on time and content of last meal. Glucose of more than 200 mg/dL in a nonstressed , ambulatory subject supports the diagnosis of Diabetes Mellitus. [facility] [id number] [address] [facility] [address] Glucose Level December 31, 2024 12:35pm December 31, 2024 4:28pm 187 mg/dL Above high normal 70-100 ADA recommended reference rangeRandom Glucose Reference Range is dependent on time and content of last meal. Glucose of more than 200 mg/dL in a nonstressed , ambulatory subject supports the diagnosis of Diabetes Mellitus. [facility] [id number] [address] [facility] [address] Blood Urea Nitrogen November 05, 2024 10:13am November 05, 2024 12:42pm 34 mg/dL Above high normal 7-25 [facility] [id number] [address] [facility] [address]99 Blood Urea Nitrogen December 31, 2024 12:35pm December 31, 2024 4:28pm 37 mg/dL Above high normal 7-25 [facility] [id number] [address] [facility] [address]350 Creatini ne November 05, 2024 10:13am November 05, 2024 12:42pm 1.49 mg/dL Above high normal 0.70-1.30 [facility] [id number] [address] [facility] 647[address] Creatini ne December 31, 2024 12:35pm December 31, 2024 4:28pm 1.55 mg/dL Above high normal 0.70-1.30 [facility] [id number] [address] [facility] [address] Estimate d GFR (CKD-EPI ) November 05, 2024 10:13am November 05, 2024 12:42pm 50.175 mL/Min [facility] [id number] [address] [facility] [address] Estimate d GFR (CKD-EPI ) December 31, 2024 12:35pm December 31, 2024 4:28pm 47.854 mL/Min [facility] [id number] [address] [facility] [address]163 Sodium Level November 05, 2024 10:13am November 05, 2024 12:42pm 138 mmol/L 136-145 [facility] [id number] [address] [facility] [address]40 Sodium Level December 31, 2024 12:35pm December 31, 2024 4:28pm 136 mmol/L 136-145 [facility] [id number] [address] [facility] [address] Potassiu m Level November 05, 2024 10:13am November 05, 2024 12:42pm 4.1 mmol/L 3.5-5.1 [facility] [id number] [address] [facility] [address]283 Potassiu m Level December 31, 2024 12:35pm December 31, 2024 4:28pm 4.2 mmol/L 3.5-5.1 [facility] [id number] [address] [facility] [address] Chloride Level November 05, 2024 10:13am November 05, 2024 12:42pm 103 mmol/L 98-107 [facility] [id number] [address] [facility] [address] Chloride Level December 31, 2024 12:35pm December 31, 2024 4:28pm 102 mmol/L 98-107 [facility] [id number] [address] [facility] [address] Carbon Dioxide Level November 05, 2024 10:13am November 05, 2024 12:42pm 22.8 mmol/L 21.0-31.0 [facility] [id number] [address] [facility] 24769 Carbon Dioxide Level December 31, 2024 12:35pm December 31, 2024 4:28pm 22.1 mmol/L 21.0-31.0 [facility] [id number] [address] [facility] 17274 Anion Gap November 05, 2024 10:13am November 05, 2024 12:42pm 16.3 mEq/L Above high normal 6.0-15.0 [facility] [id number] [address] [facility] 40777 Anion Gap December 31, 2024 12:35pm December 31, 2024 4:28pm 16.1 mEq/L Above high normal 6.0-15.0 [facility] [id number] [address] [facility] 16964 Calcium Level November 05, 2024 10:13am November 05, 2024 12:42pm 9.3 mg/dL 8.6-10.3 [facility] [id number] [address] [facility] 19871 Calcium Level December 31, 2024 12:35pm December 31, 2024 4:28pm 9.3 mg/dL 8.6-10.3 [facility] [id number] [address] [facility] [address] Total Protein November 05, 2024 10:13am November 05, 2024 12:42pm 7.4 g/dL 6.4-8.9 [facility] [id number] [address] [facility] 68980 Total Protein December 31, 2024 12:35pm December 31, 2024 4:28pm 7.6 g/dL 6.4-8.9 [facility] [id number] [address] [facility] [address]87 Albumin November 05, 2024 10:13am November 05, 2024 12:42pm 4.3 g/dL 3.5-5.7 [facility] [id number] [address] [facility] 49327 Albumin December 31, 2024 12:35pm December 31, 2024 4:28pm 4.4 g/dL 3.5-5.7 [facility] [id number] [address] [facility] 74956 Globulin November 05, 2024 10:13am November 05, 2024 12:42pm 3.1 g/dL [facility] [id number] [address] [facility] [address]751 Globulin December 31, 2024 12:35pm December 31, 2024 4:28pm 3.2 g/dL [facility] [id number] [address] [facility] [address]87 Albumin/ Globulin Ratio November 05, 2024 10:13am November 05, 2024 12:42pm 1.4 [facility] [id number] [address] [facility] [address]89 Albumin/ Globulin Ratio December 31, 2024 12:35pm December 31, 2024 4:28pm 1.4 [facility] [id number] [address] [facility] 8[address]47 Total Bilirubi n November 05, 2024 10:13am November 05, 2024 12:42pm 0.6 mg/dL 0.3-1.0 [facility] [id number] [address] [facility] 9[address] Total Bilirubi n December 31, 2024 12:35pm December 31, 2024 4:28pm 0.7 mg/dL 0.3-1.0 [facility] [id number] [address] [place], [place] [address] Aspartat e Amino Transf (AST/SGO T) November 05, 2024 10:13am November 05, 2024 12:42pm 59 U/L Above high normal -39 [facility] [id number] [address] [place], [place] [address] Aspartat e Amino Transf (AST/SGO T) December 31, 2024 12:35pm December 31, 2024 4:28pm 55 U/L Above high normal 13-39 [facility] [id number] [address] [place], [place] [address] Alanine Aminotra nsferase (ALT/SGP T) November 05, 2024 10:13am November 05, 2024 12:42pm 60 U/L Above high normal [facility] [facility] [id number] [address] [place], [place] [id number] Alanine Aminotra nsferase (ALT/SGP T) December 31, 2024 12:35pm December 31, 2024 4:28pm 72 U/L Above high normal 52 [facility] [id number] [address] [place], [place] [id number] Alkaline Phosphat ase November 05, 2024 10:13am November 05, 2024 12:42pm 194 U/L Above high normal -104 [facility] [id number] [address] [place], [place] [id number] Alkaline Phosphat ase December 31, 2024 12:35pm December 31, 2024 4:28pm 91 U/L 34-104 [facility] [id number] [address] [place], [place] [id number] Pharmacy Creatini ne Clearanc e (Chem November 05, 2024 10:13am November 05, 2024 12:42pm N/A [facility] [id number] [address] [place] [address] Pharmacy Creatini ne Clearanc e (Chem December 31, 2024 12:35pm December 31, 2024 4:28pm N/A [facility] [id number] [address] [place], [place] [id number] Advance Directives Advance Directive Response Recorded Date/ Time Advance Directives No March 18, 2017 10:52am Insurance Providers Guarantor Tito Guillen Address [address] [facility] [address] Contact Info. Home Phone: Payer Policy Id Subscriber's Name Subscriber Id Yo ctive Date Expiration Date MMO [id number] Tito Guillen [id number] [place] BC/BS KAYCE [id number] Tito Guillen [id number] [place] KAYCE [id number] Tito Guillen [id number] Medicare [id number] Tito Guillen [id number] Retreat [facility] PFFS [id number] Tito Guillen [id number] Encounters Encounter Location(s) Arrival/Admit Date Discharge/Depart Date Provider(s) Departed Clinical -Lab [address] November 05, 2024 10:48am November 05, 2024 10:49am Dmitry Eugene MD Departed Clinical -Lab [address] December 31, 2024 12:49pm December 31, 2024 12:50pm HA Canela
--- OUTSIDE RECORDS SUMMARY | 2025-01-01 09:38 | XMS_ITS | Encounter Summary ---
Author Organization [facility] Address [address] [facility] [place] [address] Phone Care Team Providers Care Therapeutic Recreation Director Name Role Phone David Pérez MD Primary Care Provider Reason for Referral * Imaging (Routine) - Authorized Specialty Diagnoses / Procedures Referred By Meri carballo Referred To Contact Radiology Diagnoses Primary osteoarthritis, left shoulder Procedures CT shoulder left wo IV contrast Valerio Yu DO Phone: tel: fax: Referral ID Status Reason Start Date Expiration Date Visits Requested Visits Authorized [id number] Authorized Perform Procedure 3 04/01/2024 1 1 Encounter Details Date Type Department Care Team (Latest Contact Info) Description 04/02/2023 Transcribe Orders [facility] [address] [address] [place] [id number] Valeiro Yu DO [address] [place] [address] Primary osteoarthritis, left shoulder (Primary Dx) [...] Teo Baum 04/02/2023 12:52 PM Dictation workstation: [id number] Narrative 04/02/2023 12:52 PM EDT Interpreted By: Teo Baum, STUDY: CT SHOULDER LEFT WO IV CONTRAST; 04/02/2023 12:09 pm INDICATION: Signs/Symptoms:left shoulder arthritis; /preop left shoulder/follow-up after MRI shoulder/left neck shoulder elbow and arm pain according to note COMPARISON: None ACCESSION NUMBER(S): [id number] ORDERING CLINICIAN: VALERIO YU TECHNIQUE: Contiguous axial [...] according to note COMPARISON: None ACCESSION NUMBER(S): [id number] ORDERING CLINICIAN: VALERIO YU TECHNIQUE: Contiguous axial [...] Teo Baum 04/02/2023 12:52 PM Dictation workstation: [id number] Valerio Yu DO IMG CT PROCEDURES Final Res ult documented in this encounter Visit Diagnoses Diagnosis Primary osteoarthritis, left shoulder- Primary Primary osteoarthritis, left shoulder documented in this encounter Care Teams Therapeutic Recreation Director Relationship Specialty Start Date End Date David Pérez MD PCP - General Family Medicine 04/02/23 documented as of this encounter
--- OUTSIDE RECORDS SUMMARY | 2025-01-01 09:39 | XMS_ITS | Clinical Summary ---
Author Organization [facility] Address [address] [place] [address] Care Team Providers Care Trim Stencil Maker Name Role Phone David Bolden Primary Care Provider [phone] Allergies No known active allergies Medications atenolol (TENORMIN) 100 mg tablet Take 100 mg by mouth once daily. Active lisinopril (ZESTRIL, PRINIVIL) 20 mg tablet Take 20 mg by mouth once daily. Active metFORMIN (GLUCOPHAGE) 1,000 mg tablet Take 500 mg by mouth twice daily. Active hydrochlorothiaz glenroy (HYDRODIURIL, ESIDRIX) 50 mg tablet Take 50 mg by mouth once daily. Active citalopram (CELEXA) 20 mg tablet Take 40 mg by mouth once daily. Active inFLIXimab (REMICADE) 100 mg injection Inject intravenous ly. Takes 700 mL every 6 weeks Active prednisoLONE 5 mg tab Take 5 mg by mouth as needed. Active ASPIRIN/ACETAMIN OPHEN/CAFFEINE (MIGRAINE FORMULA ORAL) Take by mouth once daily. Active Cholecalciferol, Vitamin D3, 10,000 unit cap Take by mouth once daily. Active MAGNESIUM GLYCINATE ORAL Take 200 mg by mouth once daily. Active sulfaSALAzine (AZULFIDINE) 500 mg tablet Take 1,000 mg by mouth twice daily. Active tiZANidine HCl (ZANAFLEX) 2 mg capsule Take 4 mg by mouth once daily. Active PREDNISONE ORAL Take by mouth. Active GABAPENTIN ORAL Take by mouth. Active spironolactone-h ctz 25/25 (ALDACTAZIDE) 25-25 mg per tablet Take 1 tablet by mouth once daily. Active cholecalciferol (VITAMIN D-3) 50 mcg (2,000 unit) tablet Take 2,000 Units by mouth once daily. Active Active Problems Problem Noted Date Diagnosed Date Cirrhosis of liver without ascites 04/24/2017 Encounters Date Type Department Care Team Description 12/06/2024 Telephone HL Provider Adult [address] [place] [address] Guru Rea MD Results (Ultrasound ) 12/06/2024 Results Follow-Up HL Provider Adult [address] [place] [address] Guru Rea MD 11/25/2024 8:59 AM EDT - 11/25/2024 11:59 PM EDT Hospital Encounter [facility] Radiology Ultrasound [address] [place] [address] Cirrhosis of liver without ascites, unspecified hepatic cirrhosis type (HCC) [K74.60] Discharge Disposition: Home 11/25/2024 Travel from Last 3 Months Family History Medical History Relation Comments mass heart failure Father tumor tutory gland Father Heart Failure Mother Breast Cancer Sister No Family History No Family History colon cancer or polyps Relation Status Comments Father Mother Sister Alive Social History Tobacco Use Types Packs/Day Years Used Date Smoking Tobacco: Every Day Cigars Smokeless Tobacco: Never Comments:Cigar occasionally Alcohol Use Standard Drinks/Week Comments Yes 0 (1 standard drink = 0.6 oz pur e alcohol) rarely Area Deprivation Index Answer Date Suleiman rded National Score (1-100), lower number is lower ri sk Not on file 05/17/2020 State Score (1-10), lower number is lower risk N ot on file 05/17/2020 Data from: https://www.neighborhoodatlas.medicine.[facility].edu/. Last address used for calculation Not on file 05/17/2020 Sex and Gender Information Value Date Recorded Sex Assigned at Not on file Legal Sex Male 9:38 PM EDT Gender Identity Not on file Sexual Orientation Not on file Last Filed Vital Signs Vital Sign Reading Time Taken Comments Blood Pressure 111/82 04/25/2018 9:22 AM EST Pulse 64 04/25/2018 9:22 AM EST Temperature 36.7 C (98.1 F) 04/25/2018 9:22 AM EST Respiratory Rate - - Oxygen Saturation 94% 04/25/2018 9:22 AM EST Inhaled Oxygen Concentration - - Weight 121.6 kg (268 lb) 04/25/2018 9:22 AM EST Height 182.9 cm (6') 04/25/2018 9:22 AM EST Body Mass Index 36.35 04/25/2018 9:22 AM EST Plan of Treatment Upcoming Encounters Date Type Department Care Team (Latest Contact Info) Description 01/18/2025 9:15 AM EDT [facility] Gastroenterology [facility] [address] [facility] [address] [place] [address] [place] [address] Guru Rea MD [address] [place] [address] cirrhosis- last seen 03/2021 [facility] Maintenance Due Date Last Done Comments Abdominal Aortic Aneurysm Screening 1954 Anxiety Screening 1972 Depression Screening 1972 Pneumococcal Vaccine: 50+ (1 of 2 - PCV) 1973 Shingrix Vaccine (1 of 2) 1973 CT Colonography 08/11/1999 Cologuard (FIT-DNA) 08/11/1999 Fecal Occult Blood 08/11/1999 Sigmoidoscopy 08/11/1999 Hepatitis B Vaccine (1 of 3 - Risk 3-dose series) 2014 RSV Vaccine (1 - Risk 60-74 years 1-dose series) 2014 Medicare Annual Wellness Visit 02/08/2019 Colonoscopy 12/03/2020 12/04/2019 Colorectal Cancer Screening 12/03/2020 DTaP,Tdap,Td Vaccine (2 - Td or Tdap) 11/28/2023 11/27/2013 Covid-19 Vaccine (5 - 2023-2 5 season) 2024 05/23/2022, 04/27/2021, 09/05/2020, Additional history exists Advance Directive Discussion 06/10/2024 Influenza Vaccine (#1) 2025 , 04/23/2022, 06/05/2021, Additional history exists Diabetes Screening 03/23/2027 03/23/2024, 1 , 03/23/2024, Additional history exists Lipid Screening 03/23/2029 03/23/2024, 11/08, 05/16/2022, Additional history exists Hepatitis C Screening Completed 12/17/2014 Procedures Procedure Name Priority Date/Time Associated Diagnosis Comments US ABD RIGHT UPPER QUADRANT Routine 11/25/2024 9:52 AM EDT Cirrhosis of liver without ascites, unspecified hepatic cirrhosis type (HCC) HEMOGLOBIN A1C Routine 03/29/2023 1:09 PM EDT Diabetes mellitus without complication (HCC) Preop examination HEP REMOTE PANEL BL Routine 12/17/2014 2 :43 PM EDT Chronic liver disease Fatty liver from Last 3 Months or Most Recently Relevant to Health Maintenance Results * US ABD RIGHT UPPER QUADRANT (11/25/2024 9:52 AM EDT) Anatomical Region Laterality Modality Abdomen Ultrasound 11/25/2024 9:52 AM EDT Impressions 11/27/2024 6:33 AM EDT IMPRESSION: Cirrhotic liver morphology. No focal liver lesions. Hepatic steatosis. Unremarkable bladder. No biliary dilation. Cotton Weigher Operator: PSCB Transcribe Date/Time: Nov 27 2024 6:28A Dictated by : TRANG MAIN MD This examination was interpreted and the report reviewed and electronically signed by: TRANG MAIN MD on Nov 27 2024 6:30AM EST Narrative 11/27/2024 6:33 AM EDT * * *Final Report* * * DATE OF EXAM: Nov 25 2024 9:52AM [facility] 1032 - US ABD RIGHT UPPER QUADRANT / PROCEDURE REASON: Cirrhosis of liver without ascites, unspecified hepatic cirrhosis type (HCC) * * * * Physician Interpretation * * * * EXAMINATION: RIGHT UPPER QUADRANT ULTRASOUND CLINICAL HISTORY: Cirrhosis of liver without ascites, unspecified hepatic cirrhosis type (HCC) TECHNIQUE: Sonography of the right upper quadrant was performed. Images were obtained and stored in a permanent archive. MQ: URUQ_2 COMPARISON: 03/25/2024 RESULT: Pancreas: Normal sonographic appearance. Portions obscured: tail Liver: Echotexture: Coarse Echogenicity: Increased Surface contour: Nodular Lesions: 0.4 cm cyst with peripheral calcification is noted. Biliary: No intrahepatic biliary duct dilation. CBD: 0.4 cm at the hilum. Gallbladder: Normal caliber -Contents: No cholelithiasis previously noted sludge is not seen on today's exam. -Wall: Normal -Other: No pericholecystic fluid. Right Kidney: No hydronephrosis. Ascites: None. Procedure Note Provider, [facility] [place] - 11/27/2024 * * *Final Report* * * DATE OF EXAM: Nov 25 2024 9:52AM U 1032 - US ABD RIGHT UPPER QUADRANT / PROCEDURE REASON: Cirrhosis of liver without ascites, unspecified hepatic cirrhosis type (HCC) * * * * Physician Interpretation * * * * EXAMINATION: RIGHT UPPER QUADRANT ULTRASOUND CLINICAL HISTORY: Cirrhosis of liver without ascites, unspecified hepatic cirrhosis type (HCC) TECHNIQUE: Sonography of the right upper quadrant was performed. Images were obtained and stored in a permanent archive. MQ: URUQ_2 COMPARISON: 03/25/2024 RESULT: Pancreas: Normal sonographic appearance. Portions obscured: tail Liver: Echotexture: Coarse Echogenicity: Increased Surface contour: Nodular Lesions: 0.4 cm cyst with peripheral calcification is noted. Biliary: No intrahepatic biliary duct dilation. CBD: 0.4 cm at the hilum. Gallbladder: Normal caliber -Contents: No cholelithiasis previously noted sludge is not seen on today's exam. -Wall: Normal -Other: No pericholecystic fluid. Right Kidney: No hydronephrosis. Ascites: None. IMPRESSION IMPRESSION: Cirrhotic liver morphology. No focal liver lesions. Hepatic steatosis. Unremarkable bladder. No biliary dilation. Cotton Weigher Operator: [facility] Transcribe Date/Time: Nov 27 2024 6:28A Dictated by : TRANG MAIN MD This examination was interpreted and the report reviewed and electronically signed by: TRANG MAIN MD on Nov 27 2024 6:30AM EST Guru Rea MD -PAMA Final Result * (ABNORMAL) HGB A1C (03/29/2023 1:09 PM EDT) Hemoglobin A1C 6.3(H) 4.3 - 5.6 % 03/29/2023 8:32 PM EDT [facility] Comment:Emirati Diabetes As sociation guidelines indicate that patients with HgbA1c in the range 5.7-6.4% are at increased risk for development of diabetes, and intervention by lifestyle modification may be beneficial. HgbA1c greater or equal to 6.5% is considered diagnostic of diabetes. Estimated Average Glucose 134 mg/dL 03/29/2023 8:32 PM EDT [facility] Comment:eAG: (Estimated aver age glucose) is a calculated value from HgbA1c and is food products sales representative of the average blood glucose level in the last 2-3 month period. Blood BLOOD SPECIMEN / Unknown Venipuncture / Unknown 03/29/2023 1:09 PM EDT 03/29/2023 1:09 PM EDT Maranda Clemens CNP LABORATORY Final Result Performing Organization Address [facility] Co de Phone Number [facility] [address] * HEP REMOTE PANEL BL (12/17/2014 2:43 PM EDT) Hep B Core Ab, Total Negative Negative 12/17/2014 9:39 PM EDT [facility] Hep C Antibody IA Negative Negative 12/17/2014 9:39 PM EDT [facility] HBsAg Negative Negative 12/17/2014 9:39 PM EDT [facility] Hep B Surface Ab, Qual Negative Negative 12/17/2014 9:40 PM EDT [facility] Comment:NEGATIVE Blood specimen (specimen) BLOOD SPECIMEN / Unknown 12/17/2014 2:43 PM EDT 12/17/2014 2:45 PM EDT Guru Rea MD LABORATORY Final Result Performing Organization Address [facility] Co de Phone Number [facility] [address] [place] [address] from Last 3 Months or Most Recently Relevant to Health Maintenance Insurance MEDICARE Care Teams Trim Stencil Maker Relationship Specialty Start Date End Date David Bodlen PCP - General Family Medicine 10/18/14
--- OUTSIDE RECORDS SUMMARY | 2025-01-01 09:39 | XMS_ITS | Clinical Summary ---
Author Organization [facility] Address [address] [place] [address] Phone Care Team Providers Care Machine Lay Out Worker Name Role Phone David Pérez MD Primary Care Provider Social History Tobacco Use Types Packs/Day Years Used Date Smoking Tobacco: Never Assessed Sex and Gender Information Value Date Recorded Sex Assigned at Not on file Legal Sex Male 8:27 PM EST Gender Identity Not on file Sexual Orientation Not on file Plan of Treatment Health Maintenance Due Date Last Done Comments CT Colonography 1954 FIT-DNA (Cologuard) 1954 FIT 1954 Lipid Panel 1955 Medicare Annual Wellness Visit (AWV) 1954 Sigmoidoscopy 1954 Hepatitis C Screening 1972 Hepatitis A Vaccines (1 of 2 - Risk 2-dose series) 1973 Pneumococcal Vaccine (1 of 1 - PCV) 2004 Zoster Vaccines (1 of 2) 2004 Hepatitis B Vaccines (1 of 3 - Risk 3-dose series) 2014 RSV High Risk: (Elderly (60+) or Population) (1 - Risk 60-74 years 1-dose series) 2014 DTaP/Tdap/Td Vaccines (2 - Td or Tdap) 11/28/2023 11/27/2013 COVID-19 Vaccine ( - season) 2024 05/23/2022, 04/27/2021, 09/05/2020, Additional history exists Influenza Vaccine (#1) 2025 , 04/23/2022, 06/05/2021, Additional history exists Diabetes Screening 01/14/2027 01/15/2024, 1 , 10/05/2020 Colonoscopy 12/03/2029 12/04/2019 Colorectal Cancer Screening 12/03/2029 HIB Vaccines Aged Out No longer eligi ble based on patient's age to complete this topic HPV Vaccines Aged Out No longer eligi ble based on patient's age to complete this topic IPV Vaccines Aged Out No longer eligi ble based on patient's age to complete this topic Meningococcal Vaccine Aged Out No radha lory eligible based on patient's age to complete this topic Rotavirus Vaccines Aged Out No longer eligible based on patient's age to complete this topic Procedures Procedure Name Priority Date/Time Associated Diagnosis Comments COMPREHENSIVE METABOLIC PANEL Routine 01/15/2024 2:51 PM EDT Encounter for preprocedural laboratory examination from Last 3 Months or Most Recently Relevant to Health Maintenance Results * (ABNORMAL) Comprehensive Metabolic Panel (01/15/2024 2:51 PM EDT) Glucose 119(H) 74 - 99 mg/dL LAB CHEMISTRY METHOD 01/15/2024 3:20 PM [facility] Sodium 138 136 - 145 mmol/L LAB CHEMISTRY METHOD 01/15/2024 3:20 PM [facility] Potassium 4.7 3.5 - 5.3 mmol/L LAB CHEMISTRY METHOD 01/15/2024 3:20 PM [facility] Chloride 106 98 - 107 mmol/L LAB CHEMISTRY METHOD 01/15/2024 3:20 PM [facility] Bicarbonate 22 21 - 32 mmol/L LAB CHEMISTRY METHOD 01/15/2024 3:20 PM [facility] Anion Gap 15 10 - 20 mmol/L LAB CHEMISTRY METHOD 01/15/2024 3:20 PM [facility] Urea Nitrogen 30(H) 6 - 23 mg/dL LAB CHEMISTRY METHOD 01/15/2024 3:20 PM [facility] Creatinine 1.49(H) 0.50 - 1.30 mg/dL LAB CHEMISTRY METHOD 01/15/2024 3:20 PM [facility] eGFR 50(L) >60 mL/min/1. 73m*2 LAB CHEMISTRY METHOD 01/15/2024 3:20 PM T [facility] Comment: Calculations of estimated GFR are performed using the 2020 CKD-EPI Study Refit equation without the race variable for the IDMS-Traceable creatinine methods. https://jasn.asnjournals.org/content/early/ASN.0182855271 Calcium 8.9 8.6 - 10.3 mg/dL LAB CHEMISTRY METHOD 01/15/2024 3:20 PM EDT [facility] Albumin 3.9 3.4 - 5.0 g/dL LAB CHEMISTRY METHOD 01/15/2024 3:20 PM [facility] Alkaline Phosphatase 82 33 - 136 U/L LAB CHEMISTRY METHOD 01/15/2024 3:20 PM T [facility] Total Protein 6.9 6.4 - 8.2 g/dL LAB CHEMISTRY METHOD 01/15/2024 3:20 PM [facility] AST 39 9 - 39 U/L LAB CHEMISTRY METHOD 01/15/2024 3:20 PM [facility] Bilirubin, Total 0.4 0.0 - 1.2 mg/dL LAB CHEMISTRY METHOD 01/15/2024 3:20 PM [facility] ALT 34 10 - 52 U/L LAB CHEMISTRY METHOD 01/15/2024 3:20 PM [facility] Comment:Patients treated wit h Sulfasalazine may generate falsely decreased results for ALT. Blood Venous blood specimen / Unknown Venipuncture / Unknown 01/15/2024 2:51 PM EDT 01/15/2024 2:53 PM EDT us Valerio Yu DO LAB BLOOD ORDERABLES Final Result [facility] [address] [place] [address] from Last 3 Months or Most Recently Relevant to Health Maintenance Insurance MEDICARE PART A AND B [employer] MEDICARE SUPPLEMENT MEDICARE PART A AND B [employer] [place] MEDICARE SUPPLEMENT Care Teams Machine Lay Out Worker Relationship Specialty Start Date End Date David Pérez MD PCP - General Family Medicine 04/02/23
--- OUTSIDE RECORDS SUMMARY | 2025-01-01 09:39 | XMS_ITS | Patient Health Record ---
Author Organization [facility] Address [address] [place], [place] [id number] Care Team Providers Care Mural Painter Name Role Phone Gilberto Sifuentes Unavailable [phone] Corry Lai Unavailable [phone] Allergies No Known Allergies Reason For Referral No Information Medications Medication SIG (Take, Route, Frequency, Duration) Notes Start Date End Date Status Voltaren 1 % as directed Externally Active Biofreeze 10 % as directed Externally Active Gabapentin 600 MG 1 tablet Orally Once a day Active Amoxicillin Active Furosemide 20 MG 1 tablet Orally Once a day Active Synthroid 50 MCG 1 tablet in the morning on an empty stomach Orally Once a day Active Pravastatin Sodium 10 MG 2 tablets Orall y Once a day Active Atenolol 100 MG 1 tablet Orally Once a day Active Tamsulosin HCl 0.4 MG 1 capsule Orally Once a day Active Lisinopril 20 MG 1 tablet Orally Once a day Active Pantoprazole Sodium 20 MG 1 tablet 1/2 to 1 hour before morning meal Orally Once a day Active metFORMIN HCl 1000 MG 1 tablet with a me al Orally Once a day Active Meloxicam 7.5 MG 1 tablet Orally Once a day Active Spironolactone 25 MG 1 tablet Orally Onc e a day Active Acetaminophen 1000 mg twice daily Active Citalopram & Diet Manage Prod 40 mg daily Active Vitamin D 1000 daily Active Simponi Aria 250ml every 8 wks. Active Multivitamin - 1 tablet Orally Once a day Active sulfaSALAzine 1000 mg twice daily Active predniSONE 5 MG 1 tablet with food or milk Orally Once a day Active Social History Tobacco Use: Social History Observation Description Date Details (start date - stop date) Current Smoker NA - NA Tobacco Control (Standard) Question Answer Notes Tobacco use: Current smoker How often do you smoke cigarettes? Some days, bu t not every day How many cigarettes a day do you smoke? 5 or les s Additional Findings: Tobacco user Cigar smoker Problems Problem Type SNOMED Code ICD Code Onset Dates Problem Status W/U Status Risk Notes Problem Tobacco user (483692973) Cigarette nicotine dependence without complication (F17.210) Active confirmed Problem Obese class II ([id number] [id number]) BMI 36.0-36.9,adult (Z68.36) Active confirmed Vital Signs Heart Rate 66 /min 12/28/2024 Blood pressure diastolic 57 mm Hg 12/28/2024 Height-cm 180.34 cm 12/28/2024 Weight-kg 117.94 kg 12/28/2024 Height 5'11 in 12/28/2024 Blood pressure systolic 116 mm Hg 12/28/2024 Weight 260 lbs 12/28/2024 BMI 36.26 kg/m2 12/28/2024 Encounters Encounter Location Date Provider Diagnosis Dental Main [address] [place], [place] [id number] 12/28/2024 Corry Lai Dental caries into dentine K02.62 ; Caries of dentin K02.62 ; BMI 36.0-36.9,adult Z68.36 ; Cigarette nicotine dependence without complication F17.210 ; Encounter for screening for dental disorders Z13.84 and Encounter for dental examination and cleaning with abnormal findings Z01.21 Assessments Encounter Date Diagnosis (ICD Code) Assessment Notes Treatment Notes Treatment Clinical Notes Section Notes 12/28/2024 Dental caries into dentine (ICD-10 - K02.62) 12/28/2024 Caries of dentin (ICD-10 - K02.62) 12/28/2024 BMI 36.0-36.9,adult (ICD-10 - Z68.36) 12/28/2024 Cigarette nicotine dependence without complication (ICD-10 - F17.210) Patient provided with [phone] phone line. 12/28/2024 Encounter for screening for dental disorders (ICD-10 - Z13.84) 12/28/2024 Encounter for dental examination and cleaning with abnormal findings (ICD-10 - Z01.21) Plan Of Treatment Next Appt Details Provider Name:Gilberto Sifuentes , 01/04/2025 09:45:00 AM, [address] [place], [place], [phone],
--- OUTSIDE RECORDS SUMMARY | 2025-01-01 09:39 | XMS_ITS | Encounter Summary ---
Author Organization [facility] Address [address] [place] [address] Phone Care Team Providers Care Hat Sprayer Name Role Phone David Pérez MD Primary Care Provider Encounter Details Date Type Department Care Team (Latest Contact Info) Description 01/15/2024 Transcribe Orders [facility] [address] [place] [phone] Valerio Yu, DO [address] [place] [address] Postprocedural seroma of a musculoskeletal structure [...] Primary documented in this encounter Care Teams Hat Sprayer Relationship Specialty Start Date End Date David Pérez MD PCP - General Family Medicine 04/02/23 documented as of this encounter
--- OUTSIDE RECORDS SUMMARY | 2025-01-01 09:39 | XMS_ITS | Clinical Summary ---
Author Organization [facility] Address [address], [address] [place] [address] Care Team Providers Care Casino Investigator Name Role Phone David Pérez MD Primary Care Provider Allergies Active Allergy Reactions Criticality Noted Date Comments Paroxetine 04/15/2017 Unknown reaction to patient Medications gabapentin (NEURONTIN) 100 MG capsuleIndication s:Cervical radiculopathy Take 1 capsule by mouth 3 times daily for 31 days. 90 capsule 3 06/17/19 18 Active Additional Information Patient taking differently: 300 mgOral2 TIMES DAILY, Reported on 10/05/2020 atenolol (TENORMIN) 100 MG tablet Take 100 mg by mouth daily Active lisinopril (PRINIVIL;ZESTRIL ) 20 MG tablet Take 20 mg by mouth daily Active metFORMIN (GLUCOPHAGE) 1000 MG tablet Take 1,000 mg by mouth 2 times daily (with meals) Active spironolactone (ALDACTONE) 25 MG tablet Take 25 mg by mouth daily Active citalopram (CELEXA) 20 MG tablet Take 20 mg by mouth daily Active inFLIXimab (REMICADE IV)Indications:ev abimael 6 weeks Infuse 900 mg intravenously Indications: every 6 weeks Active gabapentin (NEURONTIN) 600 MG tablet Take 600 mg by mouth nightly. Active SULFASALAZINE PO Take 1,000 mg by mouth 2 times daily Active furosemide (LASIX) 20 MG tablet Take 20 mg by mouth daily 09/23/19 21 Active diclofenac sodium (VOLTAREN) 1 % GEL as needed 01/15/20 20 Active prednisoLONE 5 MG TABS Take 5 mg by mouth as needed (takes 5 - 10 mg with flare - up) Active aspirin-acetamino phen-caffeine (EXCEDRIN MIGRAINE) 250-250-65 MG per tablet Take 1 tablet by mouth 2 times daily Active Multiple Vitamins-Minerals (THERAPEUTIC MULTIVITAMIN-MINE RALS) tablet Take 1 tablet by mouth daily Active Turmeric 500 MG CAPS Take by mouth daily Active CPAP Machine MISC by Does not apply route Active Active Problems Problem Noted Date Diagnosed Date Post laminectomy syndrome 10/05/2020 Former smoker, stopped smoking in distant past 0 10/05/2020 Severe obesity (BMI 35.0-39.9) with comorbidity 06/09/2019 Essential hypertension, benign 10/22/2017 Gastroesophageal reflux disease without esophagi tis 10/22/2017 Cirrhosis of liver without ascites 04/24/2017 Partial recent retinal detachment with single de fect 05/24/2014 Vitreous degeneration 05/24/2014 Psoriatic arthritis 06/26/2013 Immunizations Immunization Administration Dates Next Due COVID-19, MODERNA BLUE meena r, Primary or Immunocompromised, (age 12y+), IM, 100 mcg/0.5mL 09/05/2020,08/05/2020 TDaP, ADACEL (age 10y-64y), BOOSTRIX (age 10y+), IM, 0.5mL 11/27/2013 Family History Medical History Relation Name Comments High Blood Pressure Brother x 1 No Known Problems Daughter x 2 Cancer Father brain cancer & luekemia Heart Attack Father Heart Disease Father Other Father DVT issues Coronary Art Dis Mother Diabetes Mother Heart Disease Mother High Blood Pressure Mother Breast Cancer Sister x 1 Relation Name Status Comments Brother x 1 Alive Daughter x 2 Alive Father Mother Sister x 1 Alive Son none Social History Tobacco Use Types Packs/Day Years Used Date Smoking Tobacco: Former Cigarettes 1 25 0 10/06/1979 - 10/05/2004 Cigars Smokeless Tobacco: Never Comments:social cigar smoker Alcohol Use Standard Drinks/Week Comments Not Currently 0 (1 standard drink = 0.6 oz pur e alcohol) AUDIT-C Answer Date Recorded Q1: How often do you have a drink containing alc ohol? Never 10/05/2020 Average Number of Drinks Not on file 021 Frequency of Binge Drinking Not on file 09/09 Sex and Gender Information Value Date Recorded Sex Assigned at Not on file Legal Sex Male 5:15 PM EST Gender Identity Not on file Sexual Orientation Not on file Last Filed Vital Signs Vital Sign Reading Time Taken Comments Blood Pressure 134/87 11/16/2020 9:00 AM EDT Pulse 70 11/16/2020 9:00 AM EDT Temperature 36.1 C (96.9 F) 11/16/2020 9:00 AM EDT Respiratory Rate 18 11/01/2020 3:37 PM EDT Oxygen Saturation 95% 11/01/2020 3:37 PM EDT Inhaled Oxygen Concentration - - Weight 120.2 kg (265 lb) 11/16/2020 9:00 AM EDT Height 182.9 cm (6') 11/16/2020 9:00 AM EDT Body Mass Index 35.94 11/16/2020 9:00 AM EDT Plan of Treatment Health Maintenance Due Date Last Done Comments Depression Screen 1966 Hepatitis C screen 1972 Lipids 1994 Colonoscopy 08/11/1999 Colorectal Cancer Screen 08/11/1999 FIT/FOBT: Average risk 08/11/1999 Fecal-DNA (Cologuard): Average risk 08/11/1999 Sigmoidoscopy/CT colonography 08/11/1999 Pneumococcal 50+ years Vaccine (1 of 1 - PCV) 2004 Shingles vaccine (1 of 2) 2004 AAA screen 08/11/2019 A1C test (Diabetic or Prediabetic) 10/05/2021 10/05/2020 DTaP/Tdap/Td vaccine (2 - Td or Tdap) 11/28/2023 11/27/2013 COVID-19 Vaccine (3 - season) 2024 09/05/2020, 08/05/2020 Flu vaccine (#1) 01/08/2025 03/11/2020, , 03/19/2018, Additional history exists Respiratory Syncytial Virus (RSV) or age 60 yrs+ (1 - 1-dose 75+ series) 2029 Diabetes screen Discontinued 10/05/2020 Hepatitis A vaccine Aged Out No longe r eligible based on patient's age to complete this topic Hepatitis B vaccine Aged Out No longe r eligible based on patient's age to complete this topic Hib vaccine Aged Out No longer eligi ble based on patient's age to complete this topic Meningococcal (ACWY) vaccine Aged Out No longer eligible based on patient's age to complete this topic Meningococcal B vaccine Aged Out No l onger eligible based on patient's age to complete this topic Polio vaccine Aged Out No longer elig ible based on patient's age to complete this topic Medical Devices Implanted Type Area Rn Acls Device Identifier Shelf Expiration Date Model / Serial / Lot Kit Ld L60cm 1x8 Comp Trl Scrn For Sacr Nrv Stim Vectris Implanted:Qty: 1 on 10/11/2020 by Eyal Jesus MD at [facility] N/A: Spine Lumbar [employer] 08/20/2024 [id number] / / [id number] 6 Kit Ld L60cm 8 Electrd Perc Comp Contain Ld Anchr Gwire Ndl Implanted:Qty: 1 on 11/01/2020 by Eyal Jesus MD at [facility] N/A: Back [employer] 08/25/2024 [id number] / / [id number] 1 Kit Ld L60cm 8 Electrd Perc Comp Contain Ld Anchr Gwire Ndl Implanted:Qty: 1 on 11/01/2020 by Eyal Jesus MD at [facility] N/A: Back [employer] 10/10/2024 [id number] / / [id number] 8 Device Neurostimulator 13.9cc W1.9xh2.2in 29.1gm Rechrg - [id number] Implanted:Qty: 1 on 11/01/2020 by Eyal Jesus MD at [facility] Left: Buttocks [employer] 09/21/2021 [id number] / [id number] / Procedures Procedure Name Priority Date/Time Associated Diagnosis Comments HEMOGLOBIN A1C Routine 10/05/2020 11:37 AM EDT from Last 3 Months or Most Recently Relevant to Health Maintenance Results * (ABNORMAL) Hemoglobin A1C (10/05/2020 11:37 AM EDT) Hemoglobin A1C 6.4(H) 4.8 - 5.9 % 10/05/2020 11:35 AM EDT [facility] BLOOD SPECIMEN / Unknown 10/05/2020 11:37 AM EDT 10/05/2020 11:37 AM EDT us Soraida Patton PATIENT ACCESS SPECIALIST - SHOWER ATTENDANT CHEMISTRY ORDERAB LES Final Result [facility] [address] [place] [address], [facility] [phone] from Last 3 Months or Most Recently Relevant to Health Maintenance Insurance MEDICARE [employer] MEDICARE Care Teams Casino Investigator Relationship Specialty Start Date End Date David Pérez MD [address] [place] [address] PCP - General Family Medicine 07/22/20
--- OUTSIDE RECORDS SUMMARY | 2025-01-01 09:39 | XMS_ITS | Encounter Summary ---
Author Organization [facility] Address [address] [place] [address] Care Team Providers Care Centrifugal Wax Molder Name Role Phone tresa KayleighDavid Ronny Primary Care Provider [phone] Source Comments In the event this information is protected by the Federal Confidentiality of Alcohol and Drug AbusePatient Records regulations: The Federal rules restrict any use of the information to criminally investigate or prosecute any alcohol or drug abuse patient.[facility] Reason for Referral * Diagnostic Procedure Only (Routine) - New Request Specialty Diagnoses / Procedures Referred By Contac t Referred To Contact US IMAGING Diagnoses Cirrhosis of liver without ascites, unspecified hepatic cirrhosis type (HCC) Procedures US ABD RIGHT UPPER QUADRANT US ABDOMINAL REAL TIME W/IMAGE LIMITED Guru Rea MD [address] [place] [address] Phone: tel: fax: US IMAGING [id number] Referral ID Status Reason Start Date Expiration Date Visits Requested Visits Authorized [id number] New Request Auto-Generat ed Referral 5 01/05/2026 1 1 Encounter Details Date Type Department Care Team (Late st Contact Info) Description 12/06/2024 Results Follow-Up HL Provider Adult [address] [place], [place] [id number] Guru Rea MD [address] [place], [place] [id number] Social History Tobacco Use Types Packs/Day Years [...] N ot on file 05/17/2020 Data from: https://www.neighborhoodatlas.medicine.[facility].edu/. Last address used for calculation Not on file 05/17/2020 Sex and Gender Information Value Date Recorded Sex Assigned at Not on file Legal Sex Male 9:38 PM EDT Gender Identity Not on file Sexual Orientation Not on file documented as of this encounter Plan of Treatment Upcoming Encounters Date Type Department Care Team (Latest Contact Info) Description 01/18/2025 9:15 AM EDT [facility] Gastroenterology [address] [place] [address] [place] [address] Guru Rea MD [address] [place] [address] cirrhosis- last seen 03/2021 by Sk Scheduled Orders Name Type Priority Associated Diagnoses Orde r Schedule US ABD RIGHT UPPER QUADRANT Radiology Routine Cirrhosis of liver without ascites, unspecified hepatic cirrhosis type (HCC) Expected: 06/07/2025 (Approximate), Expires: 01/05/2026 documented as of this encounter Visit Diagnoses Diagnosis Cirrhosis of liver without ascites, unspecified hepatic cirrhosis type (HCC)- Primary documented in this encounter Care Teams Centrifugal Wax Molder Relationship Specialty Start Date End Date David Bolden PCP - General Family Medicine 10/18/14 documented as of this encounter
--- OUTSIDE RECORDS SUMMARY | 2025-01-01 09:39 | XMS_ITS | Encounter Summary ---
Author Organization [facility] Address [address] [place] [address] Care Team Providers Care General Maintenance Engineer Name Role Phone tresa KayleighDavid Primary Care Provider [phone] Source Comments In the event this information is protected by the Federal Confidentiality of Alcohol and Drug AbusePatient Records regulations: The Federal rules restrict any use of the information to criminally investigate or prosecute any alcohol or drug abuse patient.[facility] Encounter Details Date Type Department Care Team (Late st Contact Info) Description 10/11/2015 [facility] MRI [address] [place] [address] Ramya Miller (Tech)(Hist), Tech Social History Tobacco Use Types Packs/Day Years Used Date Smoking Tobacco: Every Day Cigars Comments:Cigar occasionally Alcohol Use Standard Drinks/Week Comments Yes 0 (1 standard drink = 0.6 oz pur e alcohol) rarely Sex and Gender Information Value Date Recorded Sex Assigned at Not on file Legal Sex Male 9:38 PM EDT Gender Identity Not on file Sexual Orientation Not on file documented as of this encounter Plan of Treatment Upcoming Encounters Date Type Department Care Team (Latest Contact Info) Description 01/18/2025 9:15 AM EDT [facility] Gastroenterology [facility] [address] [facility] [address] [place] [address] Guru Rea MD [address] [place] [address] cirrhosis- last seen 03/2021 by Sk documented as of this encounter Visit Diagnoses Not on filedocumented in this encounter Care Teams General Maintenance Engineer Relationship Specialty Start Date End Date David Bolden PCP - General Family Medicine 10/18/14 documented as of this encounter
--- OUTSIDE RECORDS SUMMARY | 2025-01-01 09:39 | XMS_ITS | Encounter Summary ---
Author Organization [facility] Address [address] [place] [address] Phone Care Team Providers Care Field Technical Support Consultant Name Role Phone David Pérez MD Primary Care Provider Reason for Referral * Imaging (Routine) - Closed Specialty Diagnoses / Procedures Referred By Meri carballo Referred To Contact Radiology Diagnoses Pain in left shoulder Procedures CT shoulder left wo IV contrast Valerio Yu DO Phone: tel: fax: Referral ID Status Reason Start Date Expiration Date V isits Requested Visits Authorized [id number] Closed Perform Procedure 09/23/2023 09/22/2024 1 1 Encounter Details Date Type Department Care Team (Latest Contact Info) Description 09/23/2023 Transcribe Orders [facility] [address] [place] [id number] Valerio Yu DO [address] [place] [address] Pain in left shoulder (Primary Dx) [...] Laina Presley 09/24/2023 3:33 PM Dictation workstation: [id number] Narrative 09/24/2023 3:33 PM EDT Interpreted By: Laina Presley, STUDY: CT SHOULDER LEFT WO IV CONTRAST; 09/23/2023 12:25 pm INDICATION: Signs/Symptoms:RIGHT SHOULDER PAIN. COMPARISON: CT shoulder 04/02/2023. ACCESSION NUMBER(S): [id number] ORDERING CLINICIAN: VALERIO YU TECHNIQUE: CT imaging [...] PAIN. COMPARISON: CT shoulder 04/02/2023. ACCESSION NUMBER(S): [id number] ORDERING CLINICIAN: VALERIO YU TECHNIQUE: CT imaging [...] Laina Presley 09/24/2023 3:33 PM Dictation workstation: [id number] us Valerio Yu DO IMG CT PROCEDURES Final Res ult documented in this encounter Visit Diagnoses Diagnosis Pain in left shoulder- Primary Pain in left shoulder documented in this encounter Care Teams Field Technical Support Consultant Relationship Specialty Start Date End Date David Pérez MD PCP - General Family Medicine 04/02/23 documented as of this encounter
--- NOTE | 2025-01-06 11:43 | MR_ITS ---
[place] [id number] Patient Name: CIARA MUNOZ MRN: [id number] date: 1955 Sex: M Assigned Patient Location: MRI Current Patient Location: MRI Accession/Order Number: [id number] Exam Date: 01/06/2025 14:03 Report Date: 01/06/2025 14:07 At the request of: MARCO GAUTAM NP Procedure: MR lumbar spine wo con EXAMINATION: MRI LUMBAR SPINE WITHOUT IV CONTRAST CLINICAL HISTORY: Chronic back pain with bilateral leg weakness. COMPARISON: Lumbar spine 12/21/2024 TECHNIQUE: Multiecho imaging was performed in the sagittal and axial planes without contrast administration. FINDINGS: Posterior hardware fixation L4-S1 with associated blooming artifact limiting evaluation. Vertebral body heights appear maintained. No bone marrow edema is noted. Spinal cord terminates in normal position without abnormal cord signal. A presumed neurostimulator device is in place confirmed on the x-ray study. Visualized retroperitoneum demonstrates no acute process. At L1-L2: No posterior disc pathology. Mild facet joint degenerative change. No neural canal or foraminal stenosis. At L2-L3: Mild broad-based disc bulge is present malignant flavum hypertrophy and facet joint degenerative changes causing mild canal and bilateral neural foraminal stenosis. At L3-L4: Diffuse broad-based disc bulge is present with facet joint degenerative changes causing mild canal and bilateral foraminal stenosis. At L4-L5: Postsurgical change. No significant canal stenosis. At L5-S1: Postsurgical change. No significant canal stenosis. MR/MR lumbar spine wo con IMPRESSION: Postsurgical changes involving the L4-S1 vertebral body levels with associated blooming artifact limiting evaluation. Proximal multilevel degenerative changes as described above without severe canal or neural foraminal stenosis. Impression dictated by: Jorge Gonzalez Jr., D.O. 01/06/2025 2:07 PM Dictation Location: [place] [address] Electronically authenticated by: [id number] Y Date: 01/06/2025 14:07
== END 2025-01-06 11:41 | disposition home or self-care (01) ==
PROVIDERS: PCP Family Medicine; Visit Provider Nurse Practitioner
DX: M48.062 Spinal stenosis, lumbar region with neurogenic claudication (principal)
CPT/HCPCS: 72148

== ENCOUNTER 2025-01-11 11:30 | Day surgery (SDC) | payer MEDICARE, OTHER, SELFPAY ==
[2025-01-11 11:38] VITALS: BP 134/79; PULSE 65; TEMP 36.6; O2SAT 96
[2025-01-11] MEDS: BUPIVACAINE HCL 0.25% PF 25 MG/10 ML VIAL 2 ML INJ (12:16)
[2025-01-11] MEDS: LIDOCAINE HCL 2% 400 MG/20 ML MDV INJ (12:17)
[2025-01-11] MEDS: METHYLPREDNISOLONE ACETATE 40 MG/ML VIAL INJ (12:17)
[2025-01-11] MEDS: IOHEXOL 240 MG/ML - 10 ML VIAL INJ (12:17)
[2025-01-11 12:18] VITALS: PULSE 68; PULSE 70; O2SAT 94; O2SAT 96
--- NOTE | 2025-01-11 12:18 | W.PM.PROCNOT ---
Date of procedure: 01/11/25 Pre-op diagnosis: Pain due to left sacroiliitis Post-op diagnosis: same as pre-op Procedure: Procedure: Left sacroiliac joint injection Medications: Bupivacaine 0.25% 3cc, depomedrol 40mg After informed consent was obtained, the patient was brought to the medical procedure unit and placed in the prone position, when a timeout was completed verifying correct patient, procedure, site, positioning, implant, and/or special equipment.? The skin overlying the area was prepped and draped in standard sterile fashion using alcohol.? A 25-gauge needle was inserted towards the left sacroiliac joint under direct fluoroscopic imaging.? Needle tip was advanced until the joint was encountered.? We instilled a total of 2 mL of solution.? Postoperatively needles were removed.? The patient tolerated the procedure well without complication.? The patient reported reduction in pain symptoms postoperatively. Anesthesia: Local Surgeon: Rebecca Zavala Pathology: none sent Condition: stable Disposition: no change
[2025-01-11 12:21] VITALS: BP 140/69
== END 2025-01-11 12:27 | disposition home or self-care (01) ==
LOC: SURGOUT 11:31
PROVIDERS: PCP Family Medicine; Visit Provider Anesthesiology
DX: M46.1 Sacroiliitis, not elsewhere classified (principal); M53.3 Sacrococcygeal disorders, not elsewhere classified; E11.8 Type 2 diabetes mellitus with unspecified complications; Z79.84 Long term (current) use of oral hypoglycemic drugs
CPT/HCPCS: 27096; 36415; 82948; J0665; J1010; Q9966

== ENCOUNTER 2025-01-20 09:37 | Outpatient (OUT) | payer MEDICARE, OTHER, SELFPAY ==
--- NOTE | 2025-01-20 09:42 | PM.CN ---
Consult Note: HPI Data of Consult Patient: known to practice within the last 3 years Requesting Physician: Audrey Angel NP Primary Care Provider: LEVAR MOLINA Consult Narrative Reason for consult: f/u Narrative: Tito Guillen a pleasant 69 year old male with chronic bilateral knee, bilateral hip, and chronic moderate to severe low back pain post lumbar surgery. Per pt request will address low back pain as the focus today. Pt has noticed significant increase in his low back pain over the last 3 months, more so the last 2 months, he had a fall with injury of ribs in september but the back pain was tolerable at this time. PCP recently completed a lumbar xray, no report available but pt reports inflammation , and increased prednisone. pt currently utilizing tylenol, prednisone, gabapentin, meloxicam, and thc gummies without improvement. recently underwent lumbar MRI with results below and left SIJ injection with no ongoing relief, pt did have significant improvement while anesthetized and on day 3+4 after the injection. cc:: CC: Audrey Angel NP Review of Systems ROS Musculoskeletal Reports: back pain and joint pain PFSH PFS Medical History (Updated 01/20/25 @ 10:15 by Audrey Angel NP) Cervical vertebral fusion ?M43.22 - Fusion of spine, cervical region (ICD-10) Psoriatic arthritis ?L40.50 - Arthropathic psoriasis, unspecified (ICD-10) Cirrhosis of liver ?K74.60 - Unspecified cirrhosis of liver (ICD-10) Sleep apnea ?G47.30 - Sleep apnea, unspecified (ICD-10) High cholesterol ?E78.00 - Pure hypercholesterolemia, unspecified (ICD-10) HTN (hypertension) ?I10 - Essential (primary) hypertension (ICD-10) Diabetes ?E11.9 - Type 2 diabetes mellitus without complications (ICD-10) Surgical History (Updated 12/30/24 @ 14:01 by Catherine Long RN) History of cystoscopy ?Z98.890 - Other specified postprocedural states (ICD-10) History of reverse total replacement of shoulder joint ?Z96.619 - Presence of unspecified artificial shoulder joint (ICD-10) History of hydrocelectomy ?Z98.890 - Other specified postprocedural states (ICD-10) Status post insertion of spinal cord stimulator ?Z96.89 - Presence of other specified functional implants (ICD-10) History of cataract removal with insertion of prosthetic lens ?Z98.49 - Cataract extraction status, unspecified eye (ICD-10) ?Z96.1 - Presence of intraocular lens (ICD-10) History of cervical discectomy ?Z98.890 - Other specified postprocedural states (ICD-10) History of lumbar fusion ?Z98.1 - Arthrodesis status (ICD-10) History of lumbar laminectomy ?Z98.890 - Other specified postprocedural states (ICD-10) Hx of tonsillectomy ?Z90.89 - Acquired absence of other organs (ICD-10) History of nasal septoplasty ?Z98.890 - Other specified postprocedural states (ICD-10) History of carpal tunnel release ?Z98.890 - Other specified postprocedural states (ICD-10) Meds Home Medications and Allergies Home Medications ?Medication ?Instructions ?Recorded ?Confirmed ?Type acetaminophen 500 mg tablet 1,000 mg PO BID PRN pain 12/09/24 01/11/25 History (Acetaminophen Extra Strength) atenolol 100 mg tablet 100 mg PO DAILY 12/09/24 01/11/25 History calcium phosphate,dibasic 77 tab PO 12/09/24 History mg-vitamin D3 400 unit tablet camphor-menthol 0.2 %-3.5 % 1 applic topical TID-QID PRN pain 12/09/24 01/11/25 History topical gel citalopram 40 mg tablet (Celexa) 40 mg PO DAILY 12/09/24 01/11/25 History diclofenac sodium 1 % topical gel 2 g topical QID 12/09/24 01/11/25 History (Voltaren Arthritis Pain) docusate sodium 100 mg capsule 200 mg PO DAILY 12/09/24 01/11/25 History (Colace) furosemide 20 mg tablet (Lasix) 20 mg PO DAILY 12/09/24 01/11/25 History gabapentin 600 mg tablet 600 mg PO BID 12/09/24 01/11/25 History golimumab 12.5 mg/mL intravenous IV 12/09/24 History solution (Simponi ARIA) levothyroxine 50 mcg tablet 50 mcg PO DAILY 12/09/24 01/11/25 History (Synthroid) lisinopril 20 mg tablet 20 mg PO DAILY 12/09/24 01/11/25 History meloxicam 7.5 mg tablet 7.5 mg PO DAILY 12/09/24 01/11/25 History metformin 1,000 mg tablet 1,000 mg PO BID 12/09/24 01/11/25 History multivitamin 1 tab PO DAILY 12/09/24 01/11/25 History pantoprazole 20 mg tablet,delayed 20 mg PO DAILY 12/09/24 01/11/25 History release pravastatin 10 mg tablet 10 mg PO DAILY 12/09/24 01/11/25 History prednisone 5 mg tablet 5 mg PO DAILY PRN pain 12/09/24 01/11/25 History spironolactone 25 1 tab PO DAILY 12/09/24 01/11/25 History mg-hydrochlorothiazide 25 mg tablet sulfasalazine 500 mg tablet 1,000 mg PO BID 12/09/24 01/11/25 History tamsulosin 0.4 mg capsule (Flomax) 0.4 mg PO DAILY 12/09/24 01/11/25 History baclofen 10 mg tablet See Rx Instructions .Route 12/23/24 01/11/25 Rx .COMPLEX #60 tabs Allergies Allergy/AdvReac Type Severity Reaction Status Date / Time paroxetine Allergy Mild Rash Verified 01/11/25 11:39 Exam Constitutional Documenting provider has reviewed patient's vital signs: yes Common normals: no apparent distress, oriented x3, healthy appearing, alert and well nourished General appearance: cooperative HENCO Common normals: normocephalic, hearing grossly normal bilaterally and moist oral mucous membranes Head and scalp: normocephalic Eye Common normals: PERRL Pupil: PERRL Neck & C-Spine Common normals: full ROM General: normal visual inspection Chest Common normals: inspection of chest normal Respiratory Common normals: normal respiratory effort, no retractions and no use of accessory muscles Back & Pelvis Lumbar spine/lower back: ROM limited, pain with ROM and lumbar spinal tenderness Sacroiliac joints: SI joint(s) abnormal Other: left sij positive chung(patricks), gaenslens, thigh thrust, compression test strength 5/5 in BLE positive facet loading increased back pain with standing/walking, improves with sitting and forward flexion Neuro Common normals: oriented x3 Sensorium/orientation: alert Psych Common normals: mental status grossly normal, thought process normal, cooperative, affect normal, speech normal and activity/motor behavior normal Speech: normal speech Thought process: normal thought process Results Imaging Lumbar MRI: Attestation: I have reviewed the pertinent imaging results. Radiologist's impression: Posterior hardware fixation L4-S1 with associated blooming artifact limiting evaluation. Vertebral body heights appear maintained. No bone marrow edema is noted. Spinal cord terminates in normal position without abnormal cord signal. A presumed neurostimulator device is in place confirmed on the x-ray study. Visualized retroperitoneum demonstrates no acute process. At L1-L2: No posterior disc pathology. Mild facet joint degenerative change. No neural canal or foraminal stenosis. At L2-L3: Mild broad-based disc bulge is present malignant flavum hypertrophy and facet joint degenerative changes causing mild canal and bilateral neural foraminal stenosis. At L3-L4: Diffuse broad-based disc bulge is present with facet joint degenerative changes causing mild canal and bilateral foraminal stenosis. At L4-L5: Postsurgical change. No significant canal stenosis. At L5-S1: Postsurgical change. No significant canal stenosis. Additional Findings Additional findings: If on a controlled substance or opioids, I have checked an [place] report on this patient and there are no aberrancies noted in the prescribing history.??If on a controlled substance or opioid a drug screen was completed and reviewed within the last year, and if there has not been a drug screen completed we ordered one today to monitor higher risk, state monitored pain medication use. As part of providing excellent, safe, comprehensive care, the following was completed at our patient's visit: 1. A medication reconciliation and review to ensure accurate knowledge of current/active medications, including asking our patients to inform us about any [id number] medications or herbal remedies/nutritional supplements/alternative remedies. 2. A review to specifically ensure our patients have had annual screening for screening for depression, screening for tobacco use, and screening for unhealthy alcohol use. For concerning screenings had a discussion with the patient, provided patient education, and recommended follow-up with primary care provider when appropriate. If patient noted with a risk of falling, they received education on strength, gait, and balance training to prevent future risk of falling. Portions of this note may have been carried over from the previous visit and updated as appropriate. Please note this office utilizes paper charting in addition to the electronic medical record. A list of current medications, vitals, and PMH is available there as the clinical staff outside of myself do not have access to [employer] charting during the clinic day operations. As part of providing quality comprehensive care the current medications, vitals, and PMH were reviewed in the paper chart. Assessment and Plan Assessment and Plan (1) Lumbar stenosis with neurogenic claudication: (2) Failed back syndrome: Assessment and Plan: The patient has had over 3 months of moderate to severe low back pain with functional impairment and inadequate response to conservative care including NSAIDS (unless there are contraindication such as concurrent blood thinners), multiple oral or topical pain medications, and home exercise program/physical therapy.? Patient has completed >6 weeks of guided home exercise program and/or formal physical therapy program without relief of their symptoms.? The Oswestry Disability Index was completed, and the patient scored a 42%.? The patient noted the following:?? moderate to severe pain impacting ADLs, sitting, standing, sleeping, social life, travel We discussed the risks and benefits of the procedure with the patient, and we are NOT planning on using sedation as outlined in the guidelines from Medicare unless there is a documented reason that sedation would be strongly recommended.?? ?The procedure will be completed with fluoroscopic guidance.? (3) Sacroiliitis: Assessment and Plan: significant short term relief, no ongoing relief (4) Bilateral knee pain: Assessment and Plan: bilateral knee OA based on xray imaging, consider joint injections Qualifiers: Chronicity: chronic Qualified Code(s): M25.561 - Pain in right knee; M25.562 - Pain in left knee; G89.29 - Other chronic pain (5) Bilateral hip pain: Assessment and Plan: mild OA based on xray imaging, consider joint injections (6) Myalgia, other site: Plan proceed with left L2-3 L3-4 TFESI under fluoroscopy for lumbar stenosis with [place] contact information provided for [employer], has a scs in place but is not finding benefit despite recent updates to program settings. can consider swapping out for [employer] in the future continue baclofen 5-10mg BID prn pain/spasms f/u 2 weeks after TFESI. depending on response can consider referral to NS for SIJ fusion workup vs additional lumbar surgery
== END 2025-01-20 09:38 | disposition home or self-care (01) ==
PROVIDERS: PCP Family Medicine; Visit Provider Nurse Practitioner
DX: M48.062 Spinal stenosis, lumbar region with neurogenic claudication (principal); M96.1 Postlaminectomy syndrome, not elsewhere classified; M46.1 Sacroiliitis, not elsewhere classified; M25.561 Pain in right knee; M25.562 Pain in left knee; G89.29 Other chronic pain; M79.18 Myalgia, other site
CPT/HCPCS: G0463

== ENCOUNTER 2025-01-25 11:24 | Day surgery (SDC) | payer MEDICARE, OTHER, SELFPAY ==
[2025-01-25 11:48] VITALS: BP 140/78; PULSE 74; TEMP 36.2; O2SAT 96
[2025-01-25 12:18] VITALS: BP 132/63; PULSE 77; O2SAT 95
[2025-01-25] MEDS: BUPIVACAINE HCL 0.25% PF 25 MG/10 ML VIAL INJ (12:23)
[2025-01-25] MEDS: 0.9 % SODIUM CHLORIDE 10 ML SYRINGE - SALINE FLUSH INJ (12:23)
[2025-01-25] MEDS: IOHEXOL 240 MG/ML - 10 ML VIAL INJ (12:23)
[2025-01-25] MEDS: DEXAMETHASONE SOD PHOS 10 MG/ML VIAL INJ (12:23)
[2025-01-25] MEDS: LIDOCAINE HCL 2% 400 MG/20 ML MDV INJ (12:24)
[2025-01-25 12:26] VITALS: BP 147/66; PULSE 72; O2SAT 96
--- NOTE | 2025-01-25 12:26 | P.ON_ITS ---
Date of procedure: 01/25/25 Pre-op diagnosis: Pain due to lumbar stenosis with neurogenic claudication Post-op diagnosis: same as pre-op Procedure: Procedure: Left L2-3, L3-4 transforaminal epidural steroid injection Medications: Bupivacaine 0.25% 2cc, lidocaine 2% 1cc, dexamethasone 10mg The patient was seen and examined in the preoperative holding area.? Informed consent was obtained and placed on the chart.? Patient was brought to the medical procedure unit and placed in the prone position where a timeout was completed verifying the correct patient, procedure site, position, and planned special equipment using sterile aseptic technique.? Under direct fluoroscopic visualization a 25-gauge Quincke tipped spinal needle was advanced to the designated neural foramen where contrast dye was injected to show adequate spread.? The needle was inserted at level left L2-3. There was no evidence of vascular or adverse uptake.? Epidural spread was appreciated.? The above- mentioned injectate was then placed in a 1.5 mL aliquot preceded by negative aspiration.? The needle was removed. The needle was inserted and the procedure repeated at level left L3-4.? The surgery site was covered.? Patient was taken to the postprocedural recovery area and monitored for an appropriate length of time before found suitable for discharge in the accompaniment of a responsible adult. Anesthesia: Local Surgeon: Rebecca Zavala Pathology: none sent Condition: stable Disposition: no change
== END 2025-01-25 12:34 | disposition home or self-care (01) ==
LOC: SURGOUT 11:25
PROVIDERS: PCP Family Medicine; Visit Provider Anesthesiology
DX: M48.062 Spinal stenosis, lumbar region with neurogenic claudication (principal); M54.50 Low back pain, unspecified; E11.8 Type 2 diabetes mellitus with unspecified complications; Z79.84 Long term (current) use of oral hypoglycemic drugs
CPT/HCPCS: 36415; 64483; 64484; 82948; J0665; J1100; Q9966

== ENCOUNTER 2025-02-01 12:59 | Outpatient (OUT) | payer MEDICARE, OTHER, SELFPAY ==
--- NOTE | 2025-02-01 14:04 | PM.CN ---
Consult Note: HPI Data of Consult Patient: known to practice within the last 3 years Consult date: 02/01/25 Requesting Physician: Rebecca Zavala MD Primary Care Provider: LEVAR MOLINA Consult Narrative Reason for consult: low back, bilateral hip, right knee pain Narrative: 69yom who presents for assessment. notes >50% relief after recent lumbar tfesi, notes sharp pain has subsided. still has persistent aches in low back and hips. continues to have right knee pain, would like injection. uses gabapentin, meloxicam, baclofen. denies adverse med side effects. cc:: CC: Rebecca Zavala MD Review of Systems ROS Status of ROS 10 or more systems reviewed and unremarkable except as noted in history and below PFSH [facility] Medical History Cervical vertebral fusion ?M43.22 - Fusion of spine, cervical region (ICD-10) Psoriatic arthritis ?L40.50 - Arthropathic psoriasis, unspecified (ICD-10) Cirrhosis of liver ?K74.60 - Unspecified cirrhosis of liver (ICD-10) Sleep apnea ?G47.30 - Sleep apnea, unspecified (ICD-10) High cholesterol ?E78.00 - Pure hypercholesterolemia, unspecified (ICD-10) HTN (hypertension) ?I10 - Essential (primary) hypertension (ICD-10) Diabetes ?E11.9 - Type 2 diabetes mellitus without complications (ICD-10) Surgical History History of cystoscopy ?Z98.890 - Other specified postprocedural states (ICD-10) History of reverse total replacement of shoulder joint ?Z96.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 - Presence of unspecified artificial shoulder joint (ICD-10) History of hydrocelectomy ?Z98.890 - Other specified postprocedural states (ICD-10) Status post insertion of spinal cord stimulator ?Z96.89 - Presence of other specified functional implants (ICD-10) History of cataract removal with insertion of prosthetic lens ?Z98.49 - Cataract extraction status, unspecified eye (ICD-10) ?Z96.1 - Presence of intraocular lens (ICD-10) History of cervical discectomy ?Z98.890 - Other specified postprocedural states (ICD-10) History of lumbar fusion ?Z98.1 - Arthrodesis status (ICD-10) History of lumbar laminectomy ?Z98.890 - Other specified postprocedural states (ICD-10) Hx of tonsillectomy ?Z90.89 - Acquired absence of other organs (ICD-10) History of nasal septoplasty ?Z98.890 - Other specified postprocedural states (ICD-10) History of carpal tunnel release ?Z98.890 - Other specified postprocedural states (ICD-10) Meds Home Medications and Allergies Home Medications ?Medication ?Instructions ?Recorded ?Confirmed ?Type acetaminophen 500 mg tablet 1,000 mg PO BID PRN pain 12/09/24 01/25/25 History (Acetaminophen Extra Strength) atenolol 100 mg tablet 100 mg PO DAILY 12/09/24 01/25/25 History calcium phosphate,dibasic 77 tab PO 12/09/24 History mg-vitamin D3 400 unit tablet citalopram 40 mg tablet (Celexa) 40 mg PO DAILY 12/09/24 01/25/25 History diclofenac sodium 1 % topical gel 2 g topical QID 12/09/24 01/25/25 History (Voltaren Arthritis Pain) docusate sodium 100 mg capsule 200 mg PO DAILY 12/09/24 01/25/25 History (Colace) furosemide 20 mg tablet (Lasix) 20 mg PO DAILY 12/09/24 01/25/25 History gabapentin 600 mg tablet 600 mg PO BID 12/09/24 01/25/25 History golimumab 12.5 mg/mL intravenous IV 12/09/24 History solution (Simponi ARIA) levothyroxine 50 mcg tablet 50 mcg PO DAILY 12/09/24 01/25/25 History (Synthroid) lisinopril 20 mg tablet 20 mg PO DAILY 12/09/24 01/25/25 History meloxicam 7.5 mg tablet 7.5 mg PO DAILY 12/09/24 01/25/25 History metformin 1,000 mg tablet 1,000 mg PO BID 12/09/24 01/25/25 History multivitamin 1 tab PO DAILY 12/09/24 01/25/25 History pantoprazole 20 mg tablet,delayed 20 mg PO DAILY 12/09/24 01/25/25 History release pravastatin 10 mg tablet 10 mg PO DAILY 12/09/24 01/25/25 History prednisone 5 mg tablet 5 mg PO DAILY PRN pain 12/09/24 01/25/25 History spironolactone 25 1 tab PO DAILY 12/09/24 01/25/25 History mg-hydrochlorothiazide 25 mg tablet sulfasalazine 500 mg tablet 1,000 mg PO BID 12/09/24 01/25/25 History tamsulosin 0.4 mg capsule (Flomax) 0.4 mg PO DAILY 12/09/24 01/25/25 History baclofen 10 mg tablet See Rx Instructions .Route 12/23/24 01/25/25 Rx .COMPLEX #60 tabs Allergies Allergy/AdvReac Type Severity Reaction Status Date / Time paroxetine Allergy Mild Rash Verified 01/25/25 11:49 Exam Narrative Exam Narrative: Psych-alert and oriented x 3.? Attentive and appropriate, constitutionally normal, displays normal mood and affect per situation.? There are no obvious deficits in memory, reasoning, or intellect. Extremities-lower extremities are warm with minimal edema and palpable pulses. Knee-examination of the right knee reveals tenderness to palpation over the superior, inferior, lateral, and medial aspect of the knee.? Some swelling is noted without erythema. Pain is elicited with flexion and extension of the knee both actively and passively.? Some grinding is noted with these motions.? There is no notable ligamental laxity or instability.? Coordination remains intact.? Gait remains antalgic. Assessment and Plan Assessment and Plan (1) Lumbar stenosis with neurogenic claudication: (2) Bilateral knee pain: Qualifiers: Chronicity: chronic Qualified Code(s): M25.561 - Pain in right knee; M25.562 - Pain in left knee; G89.29 - Other chronic pain Plan 69yom who presents for assessment. failed conservative measures, as noted. imaging reviewed, shows osteoarthritis of bilateral knees. given persistence of symptoms, will proceed with right knee injection. in terms of low back pain, discussed that we would see how he does and could consider reassessment in the future if anything needed to be repeated. he expressed understanding. meds reviewed, no changes. follow up in 3 months. procedure: right knee injection medications: bupivacaine 0.25% 4cc, depomedrol 40mg I explained the details of the procedure to the patient including the risks, benefits and alternatives. We had an informed discussion and the patient verbalized understanding and signed the consent form. All questions were answered appropriately.? A time out was performed.? After obtaining a comfortable seated position, the right knee was prepped with alcohol x3. A syringe containing the above medication was attached to a 25 gauge, 1.5 inch needle under strict aseptic technique. The lateral tibial plateau was palpated.? The needle was then advanced through the subcutaneous tissue in a medial and superior direction towards the joint space.? The contents of the syringe were gently injected without any resistance. The needle was removed and pressure was applied to the injection site to decrease the incidence of ecchymosis and hematoma formation.? A sterile bandage was applied.
== END 2025-02-01 13:00 | disposition home or self-care (01) ==
LOC: PM 12:59
PROVIDERS: PCP Family Medicine; Visit Provider Anesthesiology
DX: M48.062 Spinal stenosis, lumbar region with neurogenic claudication (principal); M25.561 Pain in right knee; M25.562 Pain in left knee; G89.29 Other chronic pain
CPT/HCPCS: 20610; J0665; J1010

== ENCOUNTER 2025-04-28 08:48 | Outpatient (OUT) | payer MEDICARE, OTHER, SELFPAY ==
--- NOTE | 2025-04-28 09:32 | PM.CN ---
Consult Note: HPI Data of Consult Patient: known to practice within the last 3 years Consult date: 04/28/25 Requesting Physician: Audrey Angel NP Primary Care Provider: LEVAR MOLINA Consult Narrative Reason for consult: low back and BLE pain Narrative: Tito Guillen a pleasant 69 year old male with chronic bilateral knee, bilateral hip, and chronic moderate to severe low back pain post lumbar surgery.pt currently utilizing tylenol, prednisone, gabapentin, meloxicam, and thc gummies without improvement. patient did trial baclofen 10mg bid prn with benefit but recently ran out of and has noticed increased BLE pain and spasming. Pain today 7/10 increasing to 10/10 with standing, walking, housework, twisting, bending. cc:: CC: Audrey Angel NP [facility] Medical History Cervical vertebral fusion ?M43.22 - Fusion of spine, cervical region (ICD-10) Psoriatic arthritis ?L40.50 - Arthropathic psoriasis, unspecified (ICD-10) Cirrhosis of liver ?K74.60 - Unspecified cirrhosis of liver (ICD-10) Sleep apnea ?G47.30 - Sleep apnea, unspecified (ICD-10) High cholesterol ?E78.00 - Pure hypercholesterolemia, unspecified (ICD-10) HTN (hypertension) ?I10 - Essential (primary) hypertension (ICD-10) Diabetes ?E11.9 - Type 2 diabetes mellitus without complications (ICD-10) Surgical History History of cystoscopy ?Z98.890 - Other specified postprocedural states (ICD-10) History of reverse total replacement of shoulder joint ?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 - Presence of unspecified artificial shoulder joint (ICD-10) History of hydrocelectomy ?Z98.890 - Other specified postprocedural states (ICD-10) Status post insertion of spinal cord stimulator ?Z96.89 - Presence of other specified functional implants (ICD-10) History of cataract removal with insertion of prosthetic lens ?Z98.49 - Cataract extraction status, unspecified eye (ICD-10) ?Z96.1 - Presence of intraocular lens (ICD-10) History of cervical discectomy ?Z98.890 - Other specified postprocedural states (ICD-10) History of lumbar fusion ?Z98.1 - Arthrodesis status (ICD-10) History of lumbar laminectomy ?Z98.890 - Other specified postprocedural states (ICD-10) Hx of tonsillectomy ?Z90.89 - Acquired absence of other organs (ICD-10) History of nasal septoplasty ?Z98.890 - Other specified postprocedural states (ICD-10) History of carpal tunnel release ?Z98.890 - Other specified postprocedural states (ICD-10) Meds Home Medications and Allergies Home Medications ?Medication ?Instructions ?Recorded ?Confirmed ?Type acetaminophen 500 mg tablet 1,000 mg PO BID PRN pain 12/09/24 01/25/25 History (Acetaminophen Extra Strength) atenolol 100 mg tablet 100 mg PO DAILY 12/09/24 01/25/25 History calcium phosphate,dibasic 77 tab PO 12/09/24 History mg-vitamin D3 400 unit tablet citalopram 40 mg tablet (Celexa) 40 mg PO DAILY 12/09/24 01/25/25 History diclofenac sodium 1 % topical gel 2 g topical QID 12/09/24 01/25/25 History (Voltaren Arthritis Pain) docusate sodium 100 mg capsule 200 mg PO DAILY 12/09/24 01/25/25 History (Colace) furosemide 20 mg tablet (Lasix) 20 mg PO DAILY 12/09/24 01/25/25 History gabapentin 600 mg tablet 600 mg PO BID 12/09/24 01/25/25 History golimumab 12.5 mg/mL intravenous IV 12/09/24 History solution (Simponi ARIA) levothyroxine 50 mcg tablet 50 mcg PO DAILY 12/09/24 01/25/25 History (Synthroid) lisinopril 20 mg tablet 20 mg PO DAILY 12/09/24 01/25/25 History meloxicam 7.5 mg tablet 7.5 mg PO DAILY 12/09/24 01/25/25 History metformin 1,000 mg tablet 1,000 mg PO BID 12/09/24 01/25/25 History multivitamin 1 tab PO DAILY 12/09/24 01/25/25 History pantoprazole 20 mg tablet,delayed 20 mg PO DAILY 12/09/24 01/25/25 History release pravastatin 10 mg tablet 10 mg PO DAILY 12/09/24 01/25/25 History prednisone 5 mg tablet 5 mg PO DAILY PRN pain 12/09/24 01/25/25 History spironolactone 25 1 tab PO DAILY 12/09/24 01/25/25 History mg-hydrochlorothiazide 25 mg tablet sulfasalazine 500 mg tablet 1,000 mg PO BID 12/09/24 01/25/25 History tamsulosin 0.4 mg capsule (Flomax) 0.4 mg PO DAILY 12/09/24 01/25/25 History baclofen 10 mg tablet See Rx Instructions .Route 12/23/24 01/25/25 Rx .COMPLEX #60 tabs Allergies Allergy/AdvReac Type Severity Reaction Status Date / Time paroxetine Allergy Mild Rash Verified 01/25/25 11:49 Exam Constitutional Documenting provider has reviewed patient's vital signs: yes Common normals: no apparent distress, oriented x3 and alert General appearance: cooperative HENMT Common normals: normocephalic, hearing grossly normal bilaterally and moist oral mucous membranes Head and scalp: normocephalic Eye Common normals: PERRL Pupil: PERRL Neck & C-Spine Common normals: full ROM General: normal visual inspection Chest Common normals: inspection of chest normal Respiratory Common normals: normal respiratory effort, no retractions and no use of accessory muscles Back & Pelvis Lumbar spine/lower back: pain with ROM, lumbar spinal tenderness, straight leg raise positive right and straight leg raise positive left Other: radiculopathy noted bilateral L5,S1 strength 4/5 in BLE Neuro Common normals: oriented x3 Sensorium/orientation: alert Psych Common normals: mental status grossly normal, thought process normal, cooperative, affect normal, speech normal and activity/motor behavior normal Speech: normal speech Thought process: normal thought process Results Additional Findings Additional findings: If on a controlled substance or opioids, I have checked an [place] report on this patient and there are no aberrancies noted in the prescribing history.??If on a controlled substance or opioid a drug screen was completed and reviewed within the last year, and if there has not been a drug screen completed we ordered one today to monitor higher risk, state monitored pain medication use. As part of providing excellent, safe, comprehensive care, the following was completed at our patient's visit: 1. A medication reconciliation and review to ensure accurate knowledge of current/active medications, including asking our patients to inform us about any [id number] medications or herbal remedies/nutritional supplements/alternative remedies. 2. A review to specifically ensure our patients have had annual screening for screening for depression, screening for tobacco use, and screening for unhealthy alcohol use. For concerning screenings had a discussion with the patient, provided patient education, and recommended follow-up with primary care provider when appropriate. If patient noted with a risk of falling, they received education on strength, gait, and balance training to prevent future risk of falling. Portions of this note may have been carried over from the previous visit and updated as appropriate. Please note this office utilizes paper charting in addition to the electronic medical record. A list of current medications, vitals, and PMH is available there as the clinical staff outside of myself do not have access to [employer] charting during the clinic day operations. As part of providing quality comprehensive care the current medications, vitals, and PMH were reviewed in the paper chart. Assessment and Plan Assessment and Plan (1) Failed back syndrome: (2) Lumbar radiculopathy: (3) Myalgia, other site: Plan The patient has had over 3 months of moderate to severe low back and BLE pain with functional impairment and inadequate response to conservative care including NSAIDS (unless there are contraindication such as concurrent blood thinners), multiple oral or topical pain medications, and home exercise program/physical therapy.? Patient has completed >6 weeks of guided home exercise program and/or formal physical therapy program without relief of their symptoms.? I have reviewed the imaging of the lumbar spine and no red flags were identified.? The Oswestry Disability Index was completed, and the patient scored a 49%.? proceed with caudal JENNI under fluoroscopy for lumbar radiculopathy and failed back syndrome, risks vs benefits reviewed restart baclofen 10mg bid prn pain/spasms continue gabapentin through PCP f/u after JENNI, consider revision of medtronic stimulator to Twenga if needed
== END 2025-04-28 08:49 | disposition home or self-care (01) ==
LOC: PM 08:48
PROVIDERS: PCP Family Medicine; Visit Provider Nurse Practitioner
DX: M96.1 Postlaminectomy syndrome, not elsewhere classified (principal); M54.16 Radiculopathy, lumbar region; M79.18 Myalgia, other site
CPT/HCPCS: G0463

== ENCOUNTER 2025-05-10 07:41 | Day surgery (SDC) | payer MEDICARE, OTHER, SELFPAY ==
--- OUTSIDE RECORDS SUMMARY | 2025-04-29 07:43 | XMS_ITS | Continuity of Care Document ---
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 Role Phone David Pérez MD Primary Care Provider Latanya Villeda ACCOUNT AUDITOR-C Attending Provider NON STAFF Primary Care Provider Unavailabl e Ly, Theresa L DO Attending Provider [phone] Ly, Theresa L DO Other Provider Care Teams Patient Care Team Team Status: Active Member Role/Relationship Status Dates NON STAFF Primary Care Provider Active Visit Care Team Team Status: Inactive Member Role/Relationship Status Dates David Pérez MD Primary Care Provider Active Start: February 25, 2025 End: February 25robert Villeda NP-CAttending ProviderActiveStart: February 25, 2025 End: February 25, 2025 Visit Care Team Team Status: Inactive Member Role/Relationship Status Dates NON STAFF Primary Care Provider Active Start: April 22, 2025 End: April 22robert Villeda NP-CAttenelizabet ProviderActiveStart: April 22, 2025 End: April 22, 2025 Patient Care Team Team Status: Active Member Role/Relationship Status Dates Theresa L Ly , DO Attending Provider Active St art: April 29, 2025 Theresa L Ly , DOOther ProviderActiveStart: April 29, 2025 NON STAFFPrimary Care ProviderActiveStart: April 29, 2025 Chief Complaint and Reason for Visit Chief Complaint Admit Date L41.50 z79.899 February 25, 2025 1:13pm L40.51,Z79.899 April 22, 2025 12:35pm NONALCOHOLIC CIRRHOSIS, HX OF COLON POLY PS April 29, 2025 9:40am Allergies, Adverse Reactions, Alerts Allergen Type Severity Reaction Last Updated Verified Status paroxetine Allergy Unknown rash April 29, 2025 10:07am Y es Active Social History Smoking Status Status Start Date End Date Date of Observa tion Current some day smoker April 29, 2025 9:59am Observation Status Observation Response Date of Response Legal Sex [facility] (finding) [facility] 1955 Family History Relationship Condition Age at Onset Recorded Date/T robb father Leukemia Unknown DeceasedUnknownHeart diseaseUnknownmotherDiabetes mellitusUnknownDeceasedUnknown Problems Active Problems Problem Diagnosis/Recorded Date Onset Date Stat us Trochanteric bursitis of both hips April 02, 2024 8:59am Unknown Active Cirrhosis of liver April 24, 2017 10:43am Unknown Active History of lumbar fusion April 02, 2024 8:59am Unk nown Active Arthropathy of both hips April 02, 2024 8:59am Unk nown Active History of shoulder replacement January 11, 2024 9:42a m Unknown Active Medications Medication Status Dose Units Route Directions Qty Days Refills S tart Date Stop Date End Date Reason(s) Instructions Adherence Metformin 500 MG tablet Discontinued 500 MG PO Twi ce daily April 23, 2017 12:2023 9:36amSulfasalazine 500 MG tablet Xnactpddrlhj7291XJEOAnjad dailyApril 23, 2017 12:2023 9:36amAtenolol 100 MG jzujxwQjzbof829IWZFOldlaJitrjkto 14th, 2017 12:00am Complies with drug therapyHydrochlorothiazide 50 MG lyqsxcSvyixkqgkkva24CPVF DailyApril 23, 2017 12:00amOctober 2023 8:30amLisinopril 20 MG tablet Uqrhbpmxggiy94GENVHswcqDkduhebm 14th, 2017 12:002023 9:36am Citalopram 20 MG idynzcKkskjudevhst60VEZUYeyqpUvemdljt 14th, 2017 12:002023 9:38amInfliximab (Remicade) 100 mg Recon EassCoabrxwpknlk667DECXMMBHS 6 WEEKSNov2016 12:00amAugu2023 9:35am Zagdbuo-Iwupprugcavmq-Mytcohyz 250-250-65 mg QtwwtgZxtxbcvdqrhg6OFQNBFPNOR 4-6 HOURS as needed for PainAprember 2016 12:00amAugust 2023 9:27am Cholecalciferol (Vitamin D3) (Vitamin D3) 2,000 unit NqfvmcLxpymwuhculr7815INWF PODailyNovember 2016 12:00amOctober 2023 8:31amCitalopram 20 mg kqzqxyDkeibm31COJGRrfunNtsszo 2023 9:30amComplies with drug therapy Cholecalciferol (Vitamin D3) (Vitamin D3) 50 mcg (2,000 unit) rqnaxkGgehvl6149 UNITPODabroadlawns medical centerOctlake [facility] 2023 8:30amComplies with drug therapyTamsulosin (Flomax) 0.4 mg capsuleActive0.8MGPODailyApril 19, 2025 12:00amComplies with drug therapyPantoprazole 20 mg tablet,delayed release (DR/EC)Fqdrko78XSSL DailyApril 19, 2025 12:00amComplies with drug therapyMeloxicam 7.5 mg tabletActive7.5MGPOevery other dayApril 19, 2025 12:00amComplies with drug therapyAcetaminophen 500 mg oocoljzBfdbun001HZLMFrksf 6 hours as needed for pain January 10, 2024 11:00pmComplies with drug therapyAspirin (Adult Aspirin Regimen) 81 mg tablet,delayed release (DR/EC)Ggcmnzvyvxxa55JKQDLaxinRjhbzr 2023 11:00pmOctober 2023 8:31amCephalexin 500 mg krqkhmlQawaaojyhsvc401MO POTwice dailyAugust 2023 11:00pmOctober 2023 8:31amDocusate Sodium 100 mg dehkkpcEdpodhaxhlxs939KBTHLntxvNsqimy 2023 11:00pmOctober 2023 8:31amGabapentin 300 mg cihppalFlzrxuqzznae258NKYLSxdil times dailyAugust 2023 11:00pmOctober 2023 8:29amSpironolacton-Hydrochlorothiaz 25-25 mg ppzqdiDvyevg5SGESEScnihSjmihv 2023 11:00pmComplies with drug therapy Levothyroxine 50 mcg izeiikhTocmsr26DESOVGbaotUysxnp 2023 11:00pmComplies with drug therapyLisinopril 20 mg mhsvciNfiqcd85KEWSLsybwRgdvyf 2023 11:00pmComplies with drug therapyMeloxicam 7.5 mg tabletDiscontinued7.5MGPOTwice dailyAugust 2023 11:00pmOctober 2023 8:30amMetformin 1,000 mg tablet Aeiexs3019DHTDMoprj dailyAugust 2023 11:00pmComplies with drug therapy Buprvrobxypq-Nkwtiovl-Wnxthu wbgwwzNokauk5FURAMHqpjeCpbdfk 2023 11:00pm Complies with drug therapyHydrocodone Bitartrate 10 mg capsule, oral only, ER 34omSptuxgjfjyvi58UMUNOgmcv 12 reedr2Anpnxk 2023 11:00pmAugust 2023 9:39am1/2 tab - 1 tab BID PRNPravastatin 10 mg kyipfyQfmqwt12BFLULdotpZzgiry 2023 11:00pmComplies with drug therapyTamsulosin (Flomax) 0.4 mg capsule Discontinued0.4MGPODailyAugust 2023 11:00pmOctober 2023 8:30am Golimumab (Simponi Aria) 12.5 mg/mL solutionDiscontinuedIVAugust 2023 11:00pmOctober 2023 8:31amOxycodone 5 mg tnshnggLiclibhwiepg4DGKCBxjpe 6 hours as djzdlj0Onwexz 2nd, 2024 11:00pmOctober 2023 8:30amGolimumab (Simponi Aria) 12.5 mg/mL zmxirjkdTsfkyd011IUSFKAAEZ 8 WEEKSOct2023 8:25amevery 8 weeksComplies with drug therapyDocusate Sodium 100 mg capsule Vatodg198NSFYMpgtiHuqejpg 2023 8:30amComplies with drug therapy Sulfasalazine 500 mg fqfoboQnomjd4DHUAJfqpf dailyOctober 2023 11:00pmgive with food (meal/snack)Complies with drug therapyPrednisone 5 mg nutnkwJrltqo58IQ PODailyOctober 2023 11:25yb6-0 tablets as neededComplies with drug therapy Gabapentin 600 mg zukqcuPnovyg724BJDHQt DirectedOctober 2023 11:00pm Complies with drug therapyFurosemide 20 mg dyfsokEapxpk10OFWJPoewxAupxstx 2023 11:00pmComplies with drug therapy Relevant Diagnostic Tests and/or Laboratory Data Laboratory Results Test Collection Date/Time Result Date/Time Result Interpretation Reference Range Result Comment Performing Site Corrected White Blood Count February 25, 2025 12:09pm February 25, 2025 2:14pm 5.0 10*3/uL 4[facility].5[facility] [id number] [address] [facility] 53561Ocbresjxv White Blood CountNov2024 12:39pmNovember 2024 3:00pm5.4 10*3/uL4.1-10.5[facility] [id number] [address] [facility] 57259Tkfwgafafyy WBC CountSept2024 12:09pmSept2024 2:14pm5.0 10*3/uL4.1-10.5[facility] [id number] [address] [facility] 29601Zjntzvdauvq WBC CountNov2024 12:39pmNovember 2024 3:00pm5.4 10*3/uL4.1-10.5[facility] [id number] [address] [facility] 60756Vur Blood CountSept2024 12:09pmSept2024 2:14pm4.30 10*6/uL3.90-5.60[facility] [id number] [address] [facility] 04376Oya Blood CountNovember 2024 12:39pmNov2024 3:00pm4.70 10*6/uL3.90-5.60[facility] [id number] [address] [facility] 16359BfnoxcnarxRxpzjymre 2024 12:09pmSeptember 2024 2:14pm12.8 g/dLBelow low adftiy50.0-17.0[facility] [id number] [address] [facility] 27957HkjwvpxutuHcruofjo 13th, 2025 12:39pmNovember 2024 3:00pm 13.6 g/dL13.0-17.0[facility] [id number] [address] [facility] 30464RkutfuhdeqRwpmvnylu 2024 12:09pmSeptember 2024 2:14pm37.5 %Below low qtupjc97.8-50.0[facility] [id number] [address] [facility] 94097QcltaymdtgAtsmqvnl 13th, 2025 12:39pmNovember 2024 3:00pm 40.5 %38.8-50.0[facility] [id number] [address] [facility] 86883Vzws Corpuscular VolumeSeptember 2024 12:09pmSept2024 2:14pm87.3 fL83.5-101[facility] [id number] [address] [facility] 10787Rkrj Corpuscular VolumeNov2024 12:39pmNovember 2024 3:00pm86.3 fL83.5-101[facility] [id number] [address] [facility] 96984Pqrg Corpuscular HemoglobinSeptember 2024 12:09pm February 25, 2025 2:14pm29.9 pg27.5-35.2[facility] [id number] [address] [facility] 34443Ubes Corpuscular HemoglobinNovember 2024 12:39pmNovember 2024 3:00pm29.0 pg27.5-35.2[facility] [id number] [address] [facility] 17312Ncmk Corpuscular Hemoglobin ConcentSept2024 12:09pm February 25, 2025 2:14pm34.2 g/dL32.5-35.6[facility] [id number] [address] [facility] 71870Aucq Corpuscular Hemoglobin ConcentNov2024 12:39pm April 22, 2025 3:00pm33.7 g/dL32.5-35.6[facility] [id number] [address] [facility] 55241Uzm Cell Distribution WidthSeptember 2024 12:09pm February 25, 2025 2:14pm14.3 %12.0-14.8[facility] [id number] [address] [facility] 75423Agn Cell Distribution WidthNov2024 12:39pmApril 22, 2025 3:00pm13.8 %12.0-14.8[facility] [id number] [address] [facility] 98068Hluikban CountSeptember 2024 12:09pmSept2024 2:34pq654 10*3/uLBelow low -854AjshutmyuSelect [facility] [id number] [address] [facility] 00533Mhqufokr CountNov2024 12:39pmApril 22, 2025 3:74mh398 10*3/uLBelow low dbkufu257-971WlhhqwwyzSelect [facility] [id number] [address] [facility] 95490Eqin Platelet VolumeSeptember 2024 12:09pmSept2024 2:14pm9.0 fL6.6-10.1[facility] [id number] [address] [facility] 45606Uzop Platelet VolumeNovember 2024 12:39pmNovember 2024 3:00pm9.1 fL6.6-10.1[facility] [id number] [address] [facility] 55586Jfhjnzbxbgi (%) (Auto)February 25, 2025 12:09pmSept2024 2:14pm63.8 %.[facility] [id number] [address] [facility] [place] [address]Ytptvgtslpm (%) (Auto)April 22, 2025 12:39pmNov2024 3:00pm58.5 %.[facility] [id number] [address] [facility] [place] [address]Bupsfdauzer (%) (Auto)February 25, 2025 12:09pmSept2024 2:14pm19.9 %.[facility] [id number] [address] [facility] [place] [address]Whwkkgxrxpl (%) (Auto)April 22, 2025 12:39pmNov2024 3:00pm27.1 %.[facility] [id number] [address] [facility] [place] [address]Hnqhcubrr (%) (Auto)February 25, 2025 12:09pmSept2024 2:14pm13.1 %.[facility] [id number] [address] [facility] [place] [address]Biggkyfsa (%) (Auto)April 22, 2025 12:39pmApril 22, 2025 3:00pm11.0 %.[facility] [id number] [address] [facility] [place] [address]Qzoftkjtrhr (%) (Auto)February 25, 2025 12:09pmSept2024 2:14pm2.6 %.[facility] [id number] [address] [facility] [place] [address]Rvfyjnqzyzh (%) (Auto)April 22, 2025 12:39pmApril 22, 2025 3:00pm2.9 %.[facility] [id number] [address] [facility] [place] [address]Olaaacnpo (%) (Auto)February 25, 2025 12:09pmSept2024 2:14pm0.6 %.[facility] [id number] [address] [facility] [place] [address]Libysxift (%) (Auto)April 22, 2025 12:39pmNov2024 3:00pm0.5 %.[facility] [id number] [address] [facility] 13758Hpwvnhxre RBC Relative Count (auto)February 25, 2025 12:09pm February 25, 2025 2:14pm0.1 /100{WBC}0-0.5[facility] [id number] [address] [facility] 900[address]Aqauojyqs RBC Relative Count (auto)April 22, 2025 12:39pm April 22, 2025 3:00pm0.1 /100{WBC}0-0.5[facility] [id number] [address] [facility] 27413Qrwhfwhzvvo # (Auto)February 25, 2025 12:09pmSept2024 2:14pm3.2 10*3/uL1.8-7.7[facility] [id number] [address] [facility] 83207Qasivlujikr # (Auto)April 22, 2025 12:39pmNov2024 3:00pm3.1 10*3/uL1.8-7.7[facility] [id number] [address] [facility] 47937Rqxfjvrgxsc # (Auto)February 25, 2025 12:09pmSept2024 2:14pm1.0 10*3/uL1.00-4.8[facility] [id number] [address] [facility] 063[address]Rmoreujgsfx # (Auto)April 22, 2025 12:39pmNov2024 3:00pm1.5 10*3/uL1.00-4.8[facility] [id number] [address] [place] [address]Urrwyjyvs # (Auto)February 25, 2025 12:09pmSept2024 2:14pm0.7 10*3/uL0.0-0.8[facility] [id number] [address] [facility] 34884Rarkzuhig # (Auto)April 22, 2025 12:39pmNovember 2024 3:00pm0.6 10*3/uL0.0-0.8[facility] [id number] [address] [facility] 64089Wdczhcbcztg # (Auto)February 25, 2025 12:09pmSeptember 2024 2:14pm0.1 10*3/uL0.0-0.45[facility] [id number] [address] [facility] 29763Kkeilsrkjyr # (Auto)April 22, 2025 12:39pmNovember 2024 3:00pm0.2 10*3/uL0.0-0.45[facility] [id number] [address] [facility] 99110Fdsnlvehu # (Auto)February 25, 2025 12:09pmSeptember 2024 2:14pm0.0 10*3/uL0.0-0.2[facility] [id number] [address] [facility] 51094Twfyirabr # (Auto)April 22, 2025 12:39pmNovember 2024 3:00pm0.0 10*3/uL0.0-0.2[facility] [id number] [address] [facility] 58709Gfotestgafe Sedimentation RateSept2024 12:09pm February 25, 2025 2:39pm62 mm/hrAbove high normal0-19[facility] [id number] [address] [facility] 84501Fdzkcchvbku Sedimentation RateNov2024 12:39pm April 22, 2025 3:37pm33 mm/hrAbove high normal0-19[facility] [id number] [address] [facility] 51393Vwbyk ColorSeptember 2024 12:09pmSeptember 2024 2:26pmYellowYellowSelect Medical Specialty Hospital [facility] [id number] [address] [facility] 12188Ofoif ColorNovember 2024 12:39pmNovember 2024 2:30pmLight-yellowYellowSelect Medical Specialty [facility] [id number] [address] [facility] 89613Xhkxp AppearanceSeptember 2024 12:09pmSeptember 2024 2:26pmClearClearSelect Medical Specialty [facility] [id number] [address] [facility] 24439Qddrt AppearanceNovember 2024 12:39pmNovember 2024 2:30pmClearClearSelect Medical Specialty [facility] [id number] [address] [facility] 47215Botdb Specific GravitySeptember 2024 12:09pmSeptember 2024 2:26pm1.0231.001-1.030[facility] [id number] [address] [facility] 26627Hdkzv Specific GravityNovember 2024 12:39pmNovember 2024 2:30pm1.0111.001-1.030[facility] [id number] [address] [facility] 40421Nbshw pHSeptember 2024 12:09pmSeptember 2024 2:26pm 5.55.0-9.0[facility] [id number] [address] [facility] 36122Ezwcy pHNovember 2024 12:39pmNovember 2024 2:30pm 5.05.0-9.0[facility] [id number] [address] [facility] 08154Sxice Leukocyte EsteraseSeptember 2024 12:09pmSeptember 2024 2:26pmNegativeNegativeSelect Medical Specialty [facility] [id number] [address] [facility] 92441Ntqgb Leukocyte EsteraseNovember 2024 12:39pmNovember 2024 2:30pmNegativeNegativeSelect Medical Specialty [facility] [id number] [address] [facility] 76974Sdgtl NitriteSeptember 2024 12:09pmSeptember 2024 2:26pmNegativeNegativeSelect [facility]ty [facility] [id number] [address] [facility] 65083Uviho NitriteNovember 2024 12:39pmNovember 2024 2:30pmNegativeNegativeSelect [facility]ty [facility] [id number] [address] [facility] 68892Euivn ProteinSeptember 2024 12:09pmSeptember 2024 2:26pmNegative mg/dLNegativeSelect [facility] [id number] [address] [facility] 92749Nwncy ProteinNovember 2024 12:39pmNovember 2024 2:30pmNegative mg/dLNegativeSelect [facility] [id number] [address] [facility] 27268Ludyl Glucose (UA)February 25, 2025 12:09pmSeptember 2024 2:73bz272 mg/dLAbove high normalNormalSelect Medical [facility] [id number] [address] [facility] 57799Eqtfw Glucose (UA)April 22, 2025 12:39pmNovember 2024 2:30pmNormal mg/dLNormalSelect [facility] [id number] [address] [facility] 22050Rewbk KetonesSeptember 2024 12:09pmSeptember 2024 2:26pmNegativeNegativeSelect [facility] [id number] [address] [facility] 46197Aphrp KetonesNov2024 12:39pmNovember 2024 2:30pmNegativeNegativeSelect Medical [facility] [id number] [address] [facility] 98352Hmvlf UrobilinogenSeptember 2024 12:09pmSeptember 2024 2:26pmNormal mg/dLNormalSelect [facility] [id number] [address] [facility] 53365Tqjsy UrobilinogenNovember 2024 12:39pmNovember 2024 2:30pmNormal mg/dLNormalSelect [facility] [id number] [address] [facility] 73018Dkujm BilirubinSeptember 2024 12:09pmSeptember 2024 2:26pmNegativeNegativeFirCleveland Clinic [facility] [id number] [address] [facility] 12564Bdqvq BilirubinNovember 2024 12:39pmNovember 2024 2:30pmNegativeNegativeSelect Medical [facility]ty [facility] [id number] [address] [facility] 42653Wjnyh Occult BloodSeptember 2024 12:09pmSeptember 2024 2:26pmNegativeNegativeSelect Medical Specialty [facility] [id number] [address] [facility] 14929Myevd Occult BloodNovember 2024 12:39pmNovember 2024 2:30pmNegativeNegativeSelect Medical Specialty [facility] [id number] [address] [facility] 91820Wtzux RBCSeptember 2024 12:09pmSeptember 2024 2:30ti3-3 [HPF]0-4[facility] [id number] [address] [facility] 51297Eopni RBCNovember 2024 12:39pmNovember 2024 2:32pm 1-2 [HPF]0-4[facility] [id number] [address] [facility] 37434Szear WBCSeptember 2024 12:09pmSeptember 2024 2:19nt5-1 [HPF]0-4[facility] [id number] [address] [facility] 91775Cdyij WBCNovember 2024 12:39pmNovember 2024 2:32pm 1-2 [HPF]0-4[facility] [id number] [address] [facility] 36245Xkohr Squamous Epithelial CellsSeptember 2024 12:09pm February 25, 2025 2:45dy2-2 [HPF]0-2[facility] [id number] [address] [facility] 95737Zamlc Squamous Epithelial CellsNovember 2024 12:39pm April 22, 2025 2:80zw7-2 [HPF]0-2[facility] [id number] [address] [facility] 06427Skrci BacteriaSeptember 2024 12:09pmSeptember 2024 2:28pmNone seen [HPF]None SeenSelect [facility] [id number] [address] [facility] 00187Zzhlc BacteriaNovember 2024 12:39pmNovember 2024 2:32pmNone seen [HPF]None SeenSelect [facility] [id number] [address] [facility] 32880Qfzfx Hyaline CastsSeptember 2024 12:09pmSeptember 2024 2:28pmNone [LPF]0-8[facility] [id number] [address] [facility] 58345Yqqse Hyaline CastsNovember 2024 12:39pmNovember 2024 2:82zm4-5 [LPF]0-8[facility] [id number] [address] [facility] 31853Nqpev MucusSeptember 2024 12:09pmSeptember 2024 2:28pmRare [LPF][facility] [id number] [address] [facility] 01177Zcrwq MucusNovember 2024 12:39pmNovember 2024 2:32pmRare [LPF][facility] [id number] [address] [facility] 36408Xlxdhtm LevelSeptember 2024 12:09pmSeptember 2024 2:11mc270 mg/dLAbove high bfvojs05-147JPI recommended reference rangeRandom Glucose Reference Range is dependent on time and content of last meal. Glucose of more than 200 mg/dL in a nonstressed, ambulatory subject supports the diagnosisof Diabetes Mellitus.[facility] [id number] [address] [facility] 95280Vwkmbwl LevelNovember 2024 12:39pmNovember 2024 2:15jw077 mg/dLAbove high iulkhc60-275RHM recommended reference rangeRandom Glucose Reference Range is dependent on time and content of last meal. Glucose of more than 200 mg/dL in a nonstressed, ambulatory subject supports the diagnosisof Diabetes Mellitus.[facility] [id number] [address] [facility] 12134Pgkdl Urea NitrogenSeptember 2024 12:09pmSeptember 2024 2:21pm24 mg/dL-[facility] [id number] [address] [facility] 93916Zpuqr Urea NitrogenNov2024 12:39pmNov2024 2:59pm25 mg/dL7-[facility] [id number] [address] [facility] 22585BqrqxjermtSmxxyuelg 18th, 2025 12:09pmSept2024 2:21pm1.15 mg/dL0.70-1.30[facility] [id number] [address] [facility] 93093UiagpniwcmGhhurdud 13th, 2025 12:39pmNov2024 2:59pm 1.18 mg/dL0.70-1.30[facility] [id number] [address] [facility] 58598Bchhnmxmw GFR (CKD-EPI)February 25, 2025 12:09pmSept2024 2:21pm> 60.0 mL/MinSelect [facility]ty [facility] [id number] [address] [facility] 06767Ipqokxaob GFR (CKD-EPI)April 22, 2025 12:39pmNov2024 2:59pm> 60.0 mL/MinSelect [facility] [id number] [address] [facility] 69334Uuchzj LevelSept2024 12:09pmSept2024 2:03qo131 mmol/C003-304MofmyqzjmSelect [facility]ty [facility] [id number] [address] [place] [address]6670Sodium LevelNov2024 12:39pmNov2024 2:86si224 mmol/LBelow low ohfida863-894KfucacaioSelect Medical Specialty [facility] [id number] [address] [facility] 24272Vjtimeecn LevelSeptember 2024 12:09pmSeptember 2024 2:21pm4.0 mmol/L3.5-5.1[facility] [id number] [address] [facility] 67939Lhmunxngh LevelNovember 2024 12:39pmNovember 2024 2:59pm4.5 mmol/L3.5-5.1FT[facility] [id number] [address] [facility] 44098Saliretw LevelSeptember 2024 12:09pmSeptember 2024 2:00vt077 mmol/T50-926WcwvvhzdySelect [facility] [id number] [address] [facility] 73625Psuiqbug LevelNovember 2024 12:39pmNovember 2024 2:48or519 mmol/U28-304WwzrtujtuSelect Medical Specialty [facility] [id number] [address] [facility] 57840Jfnlty Dioxide LevelSeptember 2024 12:09pmSeptember 2024 2:21pm24.6 mmol/L21.0-31.0[facility] [id number] [address] [facility] 47993Dxcogr Dioxide LevelNovember 2024 12:39pmNovember 2024 2:59pm24.5 mmol/L21.0-31.0[facility] [id number] [address] [facility] 78394Fhjbs GapSeptember 2024 12:09pmSeptember 2024 2:21pm12.4 mEq/L6.0-15.0[facility] [id number] [address] [facility] 78645Dfeio GapNovember 2024 12:39pmNovember 2024 2:59pm 14.0 mEq/L6.0-15.0[facility] [id number] [address] [facility] 29135Twfugsl LevelSeptember 2024 12:09pmSeptember 2024 2:21pm9.4 mg/dL8.6-10.3[facility] [id number] [address] [facility] 89892Uozukpo LevelNovember 2024 12:39pmNovember 2024 2:59pm10.0 mg/dL8.6-10.3[facility] [id number] [address] [facility] 37893Udcid ProteinSeptember 2024 12:09pmSeptember 2024 2:21pm7.5 g/dL6.4-8.9[facility] [id number] [address] [facility] 97012Ipokl ProteinNovember 2024 12:39pmNovember 2024 2:59pm7.5 g/dL6.4-8.9[facility] [id number] [address] [facility] 58520OpfkppfUswbtgndr 2024 12:09pmSeptember 2024 2:21pm 4.3 g/dL3.5-5.7[facility] [id number] [address] [facility] 87317DskubxsMyleajlw 2024 12:39pmNovember 2024 2:59pm4.4 g/dL3.5-5.7FT[facility] [id number] [address] [facility] 98231RdzytsflAminskdzo 2024 12:09pmSeptember 2024 2:21pm 3.2 g/[facility] [id number] [address] [facility] [id number] 2024 12:39pmNovember 2024 2:59pm 3.1 g/dLSelect [facility] [id number] [address] [facility] 44801Whhlwna/Globulin RatioSeptember 2024 12:09pmSeptember 2024 2[facility] [id number] [address] [facility] 42127Kbrjpxo/Globulin RatioNovember 2024 12:39pmNovember 2024 2:59pm1.4FT[facility] [id number] [address] [facility] 93690Pxyad BilirubinSeptember 2024 12:09pmSeptember 2024 2:21pm0.8 mg/dL0.3-1.0[facility] [id number] [address] [facility] 48220Oxkmv BilirubinNovember 2024 12:39pmNovember 2024 2:59pm0.7 mg/dL0.3-1.0[facility] [id number] [address] [facility] [id number] Amino Transf (AST/SGOT)February 25, 2025 12:09pm February 25, 2025 2:21pm83 U/LAbove high -68MsyeggofrSelect Medical [facility]ty [facility] [id number] [address] [facility] 58202Iyegwigll Amino Transf (AST/SGOT)April 22, 2025 12:39pm April 22, 2025 2:59pm71 U/LAbove high zisnrc23-78IzwxsexztSelect [facility] [id number] [address] [facility] 78484Cpqacpq Aminotransferase (ALT/SGPT)February 25, 2025 12:09pm February 25, 2025 2:21pm74 U/LAbove high normal-[facility] [id number] [address] [facility] 33434Rreocpe Aminotransferase (ALT/SGPT)April 22, 2025 12:39pm April 22, 2025 2:59pm68 U/LAbove high normal-52[facility] [id number] [address] [facility] 59408Gxanmgfs PhosphataseSeptember 2024 12:09pmSept2024 2:21pm95 U/K50-006WzbixdfhySelect [facility] [id number] [address] [facility] 55430Gramntko PhosphataseNovember 2024 12:39pmNovember 2024 2:59pm87 U/K85-259HpqmljzudSelect [facility] [id number] [address] [facility] 68975Dskqiyph Creatinine Clearance (ChemSeptember 2024 12:09pm February 25, 2025 2:21pmN/[facility] [id number] [address] [facility] 18212Llqgqbzb Creatinine Clearance (ChemNovember 2024 12:39pm April 22, 2025 2:59pmN/[facility] [id number] [address] [facility] [id number] Vital Signs Vital Reading Result Reference Range Collection Date/Time Height 71 [in_i] April 29, 2025 10:77scEcbpzu380.66 kgApril 29, 2025 10:05amHeart Rate 68 /eif74-064VonolsviApril 29, 2025 11:46amRespiratory rate16 /cah04-27GkbejbrcApril 29, 2025 11:46amOxygen saturation by Pulse tezomqdc52 %95-100April 29, 2025 11:46amBP Dionchwr481 mm[Hg]100-140April 29, 2025 11:46amBP Diastolic 89 mm[Hg]60-100April 29, 2025 11:46am Advance Directives Advance Directive Response Recorded Date/ Time Advance Directives No March 18, 2017 9:52am Insurance Providers Guarantor Tito Guillen Address [address] [facility] [address]Cnkbotq Info.Home Phone: Payer Group Member ID Coverage Type Subscriber Relationship to Subscriber Effective Date Expiration Date MMO Retired Id: [id number] L Miller Id: [id number] [address] [facility] [address] Home Phone: Email: [email or web address]/BS KAYCE [email or web address] L Miller Id: [id number] [address] [facility] [address] Home Phone: Email: [email or web address] Encounters Encounter Location(s) Arrival/Admit Date Discharge/Departure Date Discharge/Departure Disposition Provider(s) Departed Clinical -Lab [address] February 25, 2025 1:13pm February 25, 2025 1:14pm Discharged to home care or self care (routine discharge) HA Canela Departed Clinical -Lab [facility] April 22, 2025 12:35pm April 22, 2025 12:36pm Discharged to home care or self care (routine discharge) HA Canela Non-patient / Non-visit -[facility] 2024 9:40am Theresa Lewis , Plan of Treatment Future Tests Future scheduled test information is unavailable Pending Tests Pending diagnostic test information is unavailable Future Visits Future appointment information is unavailable Future Procedures Procedure Name Ordered Date Scheduled Date Discharge Order April 29, 2025 11:16am Nove mb[facility]ia 2024 11:16am Future Medications Future medication information is unavailable Patient Instructions Instruction Admit Date Gastritis - Discharge instru ctions [facility] Hemorrhoids Discharge Instructions Know your [facility] Colon Polypectomy Discharge InstructionsNov2024 9:40am Hospital Discharge Instructions Additional Instructions DISCHARGE INSTRUCTIONS FOR UPPER ENDOSCOPY WHAT TO EXPECT: - You may feel full, gassy or cramping after your procedure. In some cases, this may be from a few hours to a day. Walking may help relieve the discomfort. - Your throat may feel sore today from the scope that the doctor passed through your throat to visualize your stomach. Take a throat lozenge or suck on ice to ease the discomfort. - You may notice some streaks of blood in your sputum if the doctor has taken a biopsy. - You should begin to recover from anesthesia within 1 hour of the procedure, however may feel groggy for the next 24 hours. DO's AND DON'Ts: - Call your doctor right away if you have a hard abdomen, severe pain, vomiting or if you cough up large amounts of blood. - Call your doctor if you develop any rashes, hives or difficulty breathing. - If you take 81 mg aspirin for your heart it is safe to resume this medication. - If you take other blood thinner medications your doctor will instruct you when these can safely be resumed. - Do NOT drive for 24 hours. - Do NOT operate machinery such as power tools, lawn mowers, snow blowers, sewing machines, etc. for 24 hours. - Avoid alcoholic beverages and drugs for allergies, nerves, or sleep. - Do NOT stay alone. Do NOT leave your child unattended. - Do NOT make important personal or business decisions or sign any legal documents. - Eat solid foods and drink liquids in smaller amounts than usual until normal appetite returns. If you should experience an upset stomach, liquids high in sugar content (soda, Rosas-Aid, non-acid juices) are recommended. - Do NOT smoke. - Do take it easy today. You need not stay in bed, but avoid strenuous activities such as jogging or working out. DISCHARGE INSTRUCTIONS FOR COLONOSCOPY WHAT TO EXPECT: - You may feel full, gassy or cramping after your procedure. In some cases, this may be from a few hours to a day. Walking may help relieve the discomfort. - If you have polyp(s) removed you may note some minor bloody discharge after your first bowel movements. - You should begin to recover from anesthesia within 1 hour of the procedure, however may feel groggy for the next 24 hours. DO's AND DON'Ts: - Call your doctor right away if you have a hard abdomen, sever pain, are passing lots of bright red blood or clots. - Call your doctor if you develop any rashes, hives or difficulty breathing. - Let your doctor know if you have not had a bowel movement by 3 days after your procedure. - If you take 81 mg aspirin for your heart it is safe to resume this medication. - If you take other blood thinner medications your doctor will instruct you when these can safely be resumed. - Do NOT drive for 24 hours. - Do NOT operate machinery such as power tools, lawn mowers, snow blowers, sewing machines, etc. for 24 hours. - Avoid alcoholic beverages and drugs for allergies, nerves, or sleep. - Do NOT stay alone. Do NOT leave your child unattended. - Do NOT make important personal or business decisions or sign any legal documents. - Eat solid foods and drink liquids in smaller amounts than usual until normal appetite returns. If you should experience an upset stomach, liquids high in sugar content (soda, Rosas-Aid, non-acid juices) are recommended. - You can resume normal activities tomorrow. 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 -Repeat colonoscopy in 3-5 yrs pending bx results -Follow up with PCP. - Office number [phone].
--- OUTSIDE RECORDS SUMMARY | 2025-05-10 07:44 | XMS_ITS | Encounter Summary ---
Author Organization [facility] Address [id number] [address] [place] [address] Care Team Providers Care Cabin Equipment Supervisor Name Role Phone Willy Conteh MD Primary Care Provider [phone] Encounter Details DateTypeDepartmentCare Team (Latest Contact Info)Nzwkadbjrwq63/26/2025Orders Only [facility] [address] [place] [address] Ref Prov, [place] [address] Social History Tobacco UseTypesPacks/DayYears UsedDateSmoking Tobacco: Some DaysCigarsSmokeless Tobacco: Never Comments:cigarettes quit 201 1 present cigars 1-2 per week Alcohol UseStandard Drinks/WeekCommentsNo0 (1 standard drink = 0.6 oz pure alcohol)Social Connection and Isolation PanelAnswerDate RecordedIn a typical week, how many times do you talk on the phone with family, friends, or neighbors?Three times a week05/10/2021How often do you get together with friends or relatives?Patient ovyulcmc91/01/2021How often do you attend islam or nondenominational services?More than 4 times per year1Do you belong to any clubs or organizations such as islam groups, unions, fraternal or athletic iwona ups, or school groups?Yes05/10/2021How often do you attend meetings of the clubs or organizations you belong to?More than 4 times per year05/10/2021re you , , , , never , or living with a partner? Uxnkzzt3405/10/2021UDIT-CAnswerDate RecordedQ1: How often do you have a drink containing alcohol?Monthly or less05/10/2021Q2: How many drinks containing alcohol do you have on a typical day when you are drinking?1 or Q3: How often do you have six or more drinks on one occasion?Never05/10/2021Overall Financial Resource Strain (CARDIA)AnswerDate RecordedHow hard is it for you to pay for the very basics like food, housing, medical care, and heating?Not hard at all11/22/2024PHQ-2AnswerDate RecordedTotal Egjft879[facility] [place] [facility] Occupational Health - Occupational Stress QuestionnaireAnswerDate RecordedDo you feel stress - tense, restless, nervous, or anxious, or unable to sleep at night because yourmind is troubled all the time - these days?Only a little 05/10/2021xercise Vital SignAnswerDate RecordedOn average, how many days per week do you engage in moderate to strenuous exercise (like a brisk walk)?0 days 05/10/2021On average, how many minutes do you engage in exercise at this level?0 min05/10/2021RAPARE - TransportationAnswerDate RecordedIn the past 12 months, has lack of transportation kept you from medical appointments or from getting medications?No11/22/2024In the past 12 months, has lack of transportation kept you from meetings, work, or from getting things needed for daily living?No 11/22/2024Housing InstabilityAnswerDate RecordedAre you worried or concerned that in the next two months you may not have stable housing that you own, rent or stay in as a part of a household?No11/22/2024hildcareAnswerDate RecordedDo problems getting children's entertainer make it difficult for you to work or study?No 05/10/2021mploymentAnswerDate RecordedDo you need help finding a local career center and/or a training program?No05/10/2021Hunger ScreeningAnswerDate Recorded Within the past 12 months we worried whether our food would run out before we got money to buy more.Never True03/11/2025Within the past 12 months the food we bought just didn't last and we didn't have money to get more.Never True 03/11/2025Purpose - LifeAnswerDate RecordedI have a purpose and direction in my life.Agree05/10/2021ducationAnswerDate RecordedWhat is the highest level of school you have completed or the highest degree you have received?12th grade 05/10/2021ex and Gender InformationValueDate RecordedSex Assigned at BirthNot on fileLegal UqlEsyg5001/13/2015 11:36 AM EDTGender IdentityNot on fileSexual OrientationNot on filedocumented as of this encounter Plan of Treatment DateTypeDepartmentCare Team (Latest Contact Info)Qcquxqzyqlv99/05/2025 10:30 AM ESTOffice Visit [facility] [address] [phone] Ray Leung MD [address] [place] [address] 08/24/2025 1:00 PM EDTOffice Visit [facility] [address] [place] [phone] Willy Conteh MD [address] [place], [place] [phone] 08/30/2025 2:15 PM EDTOffice Visit [facility] [address] [place] [address] [place] [place] [phone] Adi Narvaez MD [address] [place] [address] 11/24/2025 10:00 AM EDTOffice Visit [facility] [address] [place] [phone] Willy Conteh MD [address] [place], [place] [phone] documented as of this encounter Procedures Procedure NamePriorityDate/TimeAssociated DiagnosisCommentsEGD / COLONOSCOPY Psutrtc2204/29/2025 10:28 AM ESTdocumented in this encounter Results * EGD / Colonoscopy (04/29/2025 10:28 AM EST) Narrative Authorizing ProviderResult TypeResult StatusNot In System Ref ProvGI PROCEDURE ORDERABLESFinal ResultPerforming OrganizationAddressCity/State/ZIP CodePhone Number MANUALLY TRANSCRIBED RESULTS documented in this encounter Visit Diagnoses Not on filedocumented in this encounter Additional Health Concerns AssessmentNoted TimePHQ-9 Depression Total Score: 11:04 AM EDTA Body Mass Index follow-up plan has been documented for the ftclmsw3912/21/2024 12:31 PM EDTdocumented as of this encounter Care Teams Team MemberRelationshipSpecialtyStart DateEnd Date Willy Conteh MD [address] [place] [address] PCP - GeneralInternal Medicine10/05/24documented as of this encounter
--- OUTSIDE RECORDS SUMMARY | 2025-05-10 07:44 | XMS_ITS | Clinical Summary ---
Author Organization [employer] tem Address [id number] [address] 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 Patient received 250ml for 1st dose Will receive 2nd dose august 29 2022, And then receiving every dose [facility] sulfaSALAzine (AZULFIDINE) 500 mg tablet Take 2 tablets (1,000 mg total) by mouth in the morning and 2 tablets (1,000 mg total) before bedtime.10/26/2022ctive acetaminophen (TYLENOL EXTRA STRENGTH) 500 mg tablet 10/19/2023ctive predniSONE (DELTASONE) 5 mg tablet Take 1-2 tablets (5-10 mg total) by mouth as needed. For arthritic flare up Active cholecalciferol, vitamin D3, 2,000 units tablet Take 0.5 tablets (1,000 Units total) by mouth in the morning.Active ypydrufi-hdhd-NE-calcium &mins (THERAGRAN-M) 9 mg iron-400 mcg tablet Take 1 tablet by mouth in the morning.Active docusate sodium (COLACE) 100 mg capsule Take 2 capsules (200 mg total) by mouth in the morning.Active pantoprazole (PROTONIX) 20 mg EC tablet TAKE 1 TABLET(20 MG) BY MOUTH IN THE MORNING 90 tablet 5Active triamcinolone (KENALOG) 0.1 % cream APPLY TO AFFECTED AREA BEHIND EAR ONCE TO TWICE DAILY NEEDED.5Active citalopram (CeleXA) 40 mg tablet TAKE 1 TABLET(40 MG) BY MOUTH IN THE MORNING 90 tablet 5Active lisinopriL (PRINIVIL,ZESTRIL) 20 mg tablet Take 1 tablet (20 mg total) by mouth in the morning. 90 tablet 5Active atenoloL (TENORMIN) 100 mg tablet Take 1 tablet (100 mg total) by mouth in the morning. 90 tablet 5Active spironolacton-hydroCHLOROthiaz (ALDACTAZIDE) 25-25 mg per tablet Take 1 tablet by mouth in the morning. 90 tablet 5Active metFORMIN (GLUCOPHAGE) 1000 mg tablet Take 1 tablet (1,000 mg total) by mouth in the morning and 1 tablet (1,000 mg total) in the evening. Take with meals. 180 tablet 5Active baclofen (LIORESAL) 10 mg tablet Take 1 tablet (10 mg total) by mouth in the morning and 1 tablet (10 mg total) before bedtime. 10 mg tablet he cuts them in half depending on how he is feeling .5Active tamsulosin (FLOMAX) 0.4 mg capsule Take 2 capsules (0.8 mg total) by mouth nightly. 180 capsule 5Active levothyroxine (SYNTHROID, LEVOTHROID) 50 MCG tablet Indications:Hypothyroidism (acquired)Take 1 tablet (50 mcg total) by mouth in the morning. 90 tablet 5Active pravastatin (PRAVACHOL) 10 mg tablet Take 1 tablet (10 mg total) by mouth in the morning. TAKE 1 TABLET(10 MG) BY MOUTH IN THE MORNING. 90 tablet 5Active furosemide (LASIX) 20 mg tablet Take 1 tablet (20 mg total) by mouth daily. 90 tablet 5Active meloxicam (MOBIC) 7.5 mg tablet Take 1 tablet (7.5 mg total) by mouth every other day.Active gabapentin (NEURONTIN) 600 mg tablet Indications:Cervical radiculopathyTake one tablet by mouth two times a day 60 tablet 5Active gabapentin (NEURONTIN) 600 mg tablet Indications:Cervical radiculopathyTake one tablet by mouth two times a day 60 tablet Discontinued(Reorder) Active Problems ProblemNoted DateDiagnosed DateUrge incontinence of urine04/17/2024Increased prostate specific antigen (PSA) dkhirxyc38/28/2024 Overview (09/09/2024): ==== 09/09/2024 ==== PSA improved to 2.72 will monitor serially. ==== 04/06/2024 ==== PSA year ago was about 2.07. Current PSA 3.4. Urologic gxzmsrlu87/28/2024 Overview (02/01/2025): ==== 02/01/2025 ==== some benefit ==== 09/09/2024 ==== still present. Will change him over to nystatin. He understands to contact a PCPfor any further evaluation management. ==== 04/06/2024 ==== complaints of some jock itch. Some scrotal swelling. Does have a small isolated the pimple in the right lateral aspect of the scrotum. Will treat with doxycycline. Also Lotrimin. Urine rheqahsjg27/31/2024 Overview (02/01/2025): ==== 02/01/2025 ==== now on Flomax 2 tablets 40% improvement over the 1 tablet. Reasonably satisfiedwith the his urination. Plan: Continue on with the 2 tamsulosin. Keep in our back pocket finasteride. Potential procedure down the road. ==== 09/09/2024 ==== cystoscopy lateral lobe hypertrophy. Anatomy not suitable for UroLift. RestartedFlomax. 30% improvement. No dizziness. Plan: Go up to 2 tablets. See him back in the office determine whether not we need add finasteride.Should his medical management failed he would then be headed towards TURP. ==== 04/06/2024 ==== PVR 57 cc. However patient does have some urge urge incontinence. This did predate his shoulder surgery. Noticed no great benefit however the 2 tamsulosin. Plan: Cysto [facility] solution urodynamics ====01/08/24====Retention following surgery on his shoulder. Now on Flomax 0.8mg nightly. PVR 33. Ifinterested, he can try to taper off before follow-up. Will see him back in a few months with PSA/PVR Assessment & Plan (01/08/2024 12:37 PM EDT): I do not want to check his PSA now due to recent catheterization. PSA last year was normal at 2.07.KRISTOPHER today deferred Rotator cuff tear arthropathy of left mlqldhce63/14/2023Occipital neuralgia of right side10/02/2022 Overview (10/02/2022): Added automatically from request for surgery [id number] Cervical spondylosis without aybrqrfyya14/24/2023Stenosis of cervical spine 07/03/2022Localized osteoarthritis of left axapqtpx02/24/2023ervical dotrlogtrmyin93/24/2023 Overview (07/03/2022): Added automatically from request for surgery [id number] Adenomatous polyp of ascending colon12/15/2019Adenomatous polyp of transverse colon12/15/2019Right eikdtunht61/04/2020Left uuaefzjhxcul37/04/2020Severe obesity (BMI 35.0-39.9) with qrhdoiwfzow46/31/2019Right upper quadrant abdominal pain04/10/2018Gall bladder woudltj1704/07/2018Diabetes mellitus without cgjaymrhvfpx85/15/2018Essential hypertension, yaiwfl6510/22/2017Gastroesophageal reflux disease without kuzdfrcyygq63/15/2018Cirrhosis of liver without ascites 11/15/2017Partial recent retinal detachment with single hepeis8805/24/2014Vitreous ipapqutizmdd49/15/2014Psoriatic zfxtbkvcy92/17/2014 Encounters DateTypeDepartmentCare NudcXstqxfvobuj24/26/2025Orders Only [facility] [address] [place] [address] Ref Prov, Not In System 04/26/2025Refill [facility] [address] [place] [address] Willy Conteh MD Cervical qkfqizymrvwzm27/30/2025Results Follow-Up [facility] [address] [place] [address] Willy Conteh MD CBC auto differential, Comprehensive metabolic panel, Lipid profile, TSH 04/07/20252957Zbzbdr30/26/2025Refill [facility] [address] [place] [address] Willy Conteh MD 03/12/2025Refill [facility] [address] [place] [place] [address] Willy Conteh MD Cervical zwpckkctezzjh12/02/2025 11:00 AM EDTOffice Visit [facility] [address] [place] [address] Corry Dexter, 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-[employer] HEAD PU[employer]ER Tubular adenoma (Primary Dx); Non-alcoholic cirrhosis (CMS-HCC); Special screening for malignant neoplasm of colon03/10/20253005Zndnpm85/25/2025 Refill [facility] [address] [place] [address] David Pérez MD 02/24/2025 11:00 AM EDTOffice Visit [facility] [address] [place] [address] Willy Conteh MD Essential hypertension, benign (Primary Dx); Cirrhosis of liver without ascites, unspecified hepatic cirrhosis type (CMS-HCC); Gastroesophageal reflux disease without esophagitis; Special screening for malignant neoplasm of colon; Diabetes mellitus without complication (CMS-HCC); Hypothyroidism (acquired); Osteoarthritis of lumbar spine, unspecified spinal osteoarthritis complication phnlgv4002/23/2025Travelfrom Last 3 Months Immunizations ImmunizationAdministration DatesNext DueCOVID-19, mRNA, LNP-S, PF, 100mcg/0.5mL Dose09/05/2020,08/05/2020Influenza Vaccine, Quadrivalent, Krugpozlik99/02/2020 Influenza Whole04/24/2010Influenza, High-dose, Qyqlhqtreppx30/14/2022Influenza, Im Trivalent Izvtzpigyegr89/26/2015Influenza, Injectable, Lgjckcwaotpl06/21/2019 ,04/09/2017,04/12/2014Influenza, Injectable, quadrivalent (PF)06/05/2021, 03/19/2018Influenza, Vzqiggsstfh30/15/2022,03/11/2020Tdap11/27/2013 Family History Medical HistoryRelationNameCommentsNo Known ProblemsDaughter 1No Known Problems Daughter 2Brain TumorFatherDCoronary artery diseaseFatherDHeart failureFatherD HypertensionFatherDHeart failureMaternal GrandmotherCoronary artery disease MotherJeanDiabetesMotherJeanHeart failureMotherJeanHyperlipidemiaMotherJean HypertensionMotherJeanBreast cancerSisterReneeAnesthesia problemsNeg HxRelation NameStatusCommentsBrotherAliveDaughter 1AliveDaughter 2AliveFatherDDeceased (Age 55)Maternal GrandmotherMotherJeanDeceased (Age 69)SisterReneeAlive Social History Tobacco UseTypesPacks/DayYears UsedDateSmoking Tobacco: Some DaysCigarsSmokeless Tobacco: Never Tobacco Cessation:Ready to Q uit: Not Asked; Counseling Given: Not Answered Comments:cigarettes quit 2010 present cigars 1-2 per week Alcohol UseStandard Drinks/WeekCommentsNo0 (1 standard drink = 0.6 oz pure alcohol)Social Connection and Isolation PanelAnswerDate RecordedIn a typical week, how many times do you talk on the phone with family, friends, or neighbors?Three times a week05/10/2021How often do you get together with friends or relatives?Patient fpllhxyf55/01/2021How often do you attend roman catholic or islam services?More than 4 times per year1Do you belong to any clubs or organizations such as roman catholic groups, unions, fraternal or athletic iwona ups, or school groups?Yes05/10/2021How often do you attend meetings of the clubs or organizations you belong to?More than 4 times per year05/10/2021re you , , , , never , or living with a partner? 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 work [...] InformationValueDate RecordedSex Assigned at BirthNot on fileLegal VpwYlkp2501/13/2015 11:36 AM EDTGender IdentityNot on fileSexual OrientationNot on file Last Filed Vital Signs Vital SignReadingTime TakenCommentsBlood Vegjdfvr117/6403/11/2025 11:07 AM EDT Bjwif412503/11/2025 11:07 AM GKBMiyzsdrotrq48.7 ??C (98 ??F)10/20/2024 7:45 AM EDT Respiratory Nlck100002/24/2025 11:01 AM EDTOxygen Cjzpqhhkny10%02/24/2025 11:01 AM EDTInhaled Oxygen Concentration--Sokgtk058.3 kg (265 lb 3.2 oz)03/11/2025 11:07 AM PYZTzdvjz730.3 cm (5' 9 )03/11/2025 11:07 AM EDTBody Mass Index39.16 03/11/2025 11:07 AM EDT Plan of Treatment DateTypeDepartmentCare Team (Latest Contact Info)Asfxyfewonu69/05/2025 10:30 AM ESTOffice Visit [facility] [address] [place] [phone] Ray Leung MD [address] [place] [address] 08/24/2025 1:00 PM EDTOffice Visit [facility] [address] [place] [phone] Willy Conteh MD [address] [place] [phone] 08/30/2025 2:15 PM EDTOffice Visit [facility] [address] [place] [address] [address] [facility] [place] [phone] Adi Narvaez MD [address] [place] [address] 11/24/2025 10:00 AM EDTOffice Visit [facility] [address] [place] [phone] Willy Conteh MD [address] [place] [address] [phone] Health MaintenanceDue DateLast DoneCommentsTobacco Cjnicrmlje06/03/1955Zoster (Shingles) Vaccine (1 of 2)1973RSV ( or age 60+ yrs) (1 - Risk 60- 74 years 1-dose series)08/10/20141529Xxpssifclsg84, 04/30/2008, 04/30/2008, Additional history existsDTaP,Tdap and Td Vaccines (2 - Td or Tdap) /COVID-19 Vaccine (5 - 2024- season), 04/27/2021, 09/05/2020, Additional history existsInfluenza Qzxtrra7202/08/2025 04/24/2022, 04/23/2022, 06/05/2021, Additional history existsDiabetic Ophthalmology Exam/, 10/12/2022, 10/12/2022, Additional history existsFall Risk Apcscvbvy34/Diabetic Foot Exam /, 11/13/2021, 05/04/2019, Additional history existsMedicare Annual Wellness Visit/, 11/21/2023, 11/19/2022, Additional history existsAdult BMI Follow Up Plan/Depression Screening /dult BMI Jwgpsaroa27Tobacco Screening bdominal Aortic Aneurysm (AAA) ElibfeOlddemfzr74/06/2024 Medical Devices ImplantedTypeAreaManufacturerDevice IdentifierShelf Expiration DateModel / Serial / LotLens Iol Ultrasert 19.0d - [id number] - [id number] Implanted:Qty: 1 on 12/25/2018 by Nelda Leonardo MD at [facility]: [employer]03/09/2021AU00T0 19.0 / [id number] / NALens Iol Sy60wf.190 [facility] [id number] - [id number] - [id number] Implanted:Qty: 1 on 10/20/2024 by [facility]elda [facility]ardo [facility]07/08/2028SY60WF.190 / [id number] / N/ANeuro Stimulator-11/08/2020 Implanted:Qty: 1 on 11/08/2020Neuro StimulatorMEDTRONIC SPINAL AND BIOLOGICS [id number] / [id number] / Neck And Back Clips From Fusion Procedures Procedure NamePriorityDate/TimeAssociated DiagnosisCommentsEGD / COLONOSCOPY Qvbxoak2304/29/2025 10:28 AM VDBFTPVpragso31/29/2025 8:38 AM EDT Essential hypertension, benign LIPID HEHPKIHUbprzll74/29/2025 8:38 AM EDT Essential hypertension, benign COMPREHENSIVE METABOLIC JERWPQtewlao69/29/2025 8:38 AM EDT Essential hypertension, benign CBC WITH AUTO INCEIYHHHRVMTrhypzw02/29/2025 8:38 AM EDT Essential hypertension, benign US RETROPERITONEAL ABOZGEDOYkjsdrb59/06/2024 9:55 AM EST Urine retention [facility] DIABETES EYE WALPWrnccvx58/22/2024 11:24 AM FVIXJDKRSVCENXKxqtbts55/21/2008 from Last 3 Months or Most Recently Relevant to Health Maintenance Results * EGD / Colonoscopy (04/29/2025 10:28 AM EST) Narrative Authorizing ProviderResult TypeResult StatusNot In System Ref ProvGI PROCEDURE ORDERABLESFinal ResultPerforming OrganizationAddressCity/State/ZIP CodePhone Number MANUALLY TRANSCRIBED RESULTS * CBC auto differential (04/07/2025 8:38 AM EDT)ComponentValueRef RangeTest MethodAnalysis TimePerformed AtPathologist SignatureWBC6.24 - 11 x10E9/L 04/07/2025 1:53 PM [facility] LABORATORYRBC Count4.614.1 - 5.7 X10E12/L1 1:53 PM [facility] Lbasivhwhr96.613 - 17 g/dL04/07/2025 1:53 PM [facility] ILEXLTEBAQPrxxwmglji09.639 - 50 %04/07/2025 1:53 PM [facility] NMIUCRLFFFYRY6089 - 100 fL04/07/2025 1:53 PM [facility] VQWXQCOACOYDQ35.527 - 34 pg04/07/2025 1:53 PM [facility] SEINLNNUBQIRAU28.532 - 36 g/dL04/07/2025 1:53 PM [facility] GGHZHYOQFGAXT64.311.5 - 15 %04/07/2025 1:53 PM [facility] LABORATORYPlatelet Hosdr197121 - 450 X10E9/L1 1:53 PM [facility] LABORATORYMPV9.27 - 12 fL04/07/2025 1:53 PM [facility] LABORATORYNeutrophils %54.4%04/07/2025 1:53 PM [facility] LABORATORYLymphocytes %28.7%04/07/2025 1:53 PM [facility] LABOR[facility]ORYMonocytes %12.6%04/07/2025 1:53 PM [facility]ORYEosinophils %3.7%04/07/2025 1:53 PM [facility] LABORATORYBasophils %0.6%04/07/2025 1:53 PM [facility] LABORATORYNeutrophils Absolute (A)3.41.5 - 6.6 10*3/uL 04/07/2025 1:53 PM [facility] LABORATORYLymphocytes Absolute 1.81.0 - 3.5 10*3/uL04/07/2025 1:53 PM [facility] Monocytes Absolute0.80.0 - 0.9 10*3/uL04/07/2025 1:53 PM [facility] LABORATORYEosinophils Absolute0.20.0 - 0.4 10*3/uL04/07/2025 1:53 PM [facility] LABORATORYBasophils Absolute0.00.0 - 0.2 10*3/uL 04/07/2025 1:53 PM [facility] LABORATORYDifferential Type AUTOMATED RIJDYUUQCQED36/29/2025 1:53 PM [facility] LABORATORYSpecimen (Source)Anatomical Location / LateralityCollection Method / VolumeCollection TimeReceived TimeBloodVenous blood / UnknownVenipuncture / Iazmcow6104/07/2025 8:38 AM EDT1 8:38 AM EDT Narrative Authorizing ProviderResult TypeResult StatusWilly FRANKLIN BLOOD ORDERABLESFinal ResultPerforming OrganizationAddressCity/State/ZIP CodePhone Number [facility] [address] [place] [address], * TSH (04/07/2025 8:38 AM EDT)ComponentValueRef RangeTest MethodAnalysis Time Performed AtPathologist SignatureTSH2.230.49 - 4.67 uIU/mL04/07/2025 2:30 PM [facility] LABORATORYSpecimen (Source)Anatomical Location / LateralityCollection Method / VolumeCollection TimeReceived TimeBloodVenous blood / UnknownVenipuncture / Xifuvbi9904/07/2025 8:38 AM EDT1 8:38 AM EDT Narrative Authorizing ProviderResult TypeResult StatusWilly FRANKLIN BLOOD ORDERABLESFinal ResultPerforming OrganizationAddressCity/State/ZIP CodePhone Number [facility] [address] [place] [address], * (ABNORMAL) Lipid profile (04/07/2025 8:38 AM EDT)ComponentValueRef RangeTest MethodAnalysis TimePerformed AtPathologist FgjhplzllJLKAWRJLNBU122(H)150 - 200 mg/dL04/07/2025 2:25 PM [facility] RTMYLPNULFYJGDRHDUSHZM627 (H)27 - 150 mg/dL04/07/2025 2:25 PM [facility] LABORATORYHDL YDFLIQRMNDA27(L)>39 mg/dL04/07/2025 2:25 PM [facility] LABORATORYComment: HDL <40 mg/dL - High Risk HDL > or = 40mg/dL- Desirable HDL >60 mg/dL - Negative Risk LDL (CALC)147(H)<130 mg/dL04/07/2025 2:25 PM [facility] LABORATORYComment: LDL <100 mg/dL - Desirable LDL >160 mg/dL - High Risk CHOLESTEROL:HDL6.8(H)1.0 - 5.010 2:25 PM [facility] LABORATORYVERY LOW TAQQHEQCCYW78(H)0 - 30 mg/dL04/07/2025 2:25 PM [facility] LABORATORYSpecimen (Source)Anatomical Location / Laterality Collection Method / VolumeCollection TimeReceived TimeBloodVenous blood / UnknownVenipuncture / Fjifqit0304/07/2025 8:38 AM EDT1 8:38 AM EDT Narrative Authorizing ProviderResult TypeResult StatusWilly FRANKLIN BLOOD ORDERABLESFinal ResultPerforming OrganizationAddressCity/State/ZIP CodePhone Number [facility] [address] [place] [address], * (ABNORMAL) Comprehensive metabolic panel (04/07/2025 8:38 AM EDT)Component ValueRef RangeTest MethodAnalysis TimePerformed AtPathologist SignatureSODIUM 302440 - 146 mmol/L1 2:25 PM [facility] POTASSIUM4.33.5 - 5.0 mmol/L1 2:25 PM [facility] UWMKMMHGPPSBBNMSYZ32151 - 109 mmol/L1 2:25 PM [facility] LABORATORYCARBON GHBIMZY4405 - 32 mmol/L1 2:25 PM [facility] LABORATORYANION YKD156 - 15 mmol/L1 2:25 PM EDT [facility] LABORATORYBLOOD UREA DLVLSADL08(H)5 - 27 mg/dL 04/07/2025 2:25 PM [facility] LABORATORYCREATININE1.34(H)0.60 - 1.30 mg/dL04/07/2025 2:25 PM [facility] LABORATORYComment: METHOD TRACEABLE TO IDMS YICFSSQHLOQLPZH396(H)65 - 99 mg/dL04/07/2025 2:25 PM [facility] LABORATORYCALCIUM9.38.5 - 10.5 mg/dL04/07/2025 2:25 PM [facility] LABORATORYTOTAL PROTEIN7.86.0 - 8.0 g/dL 04/07/2025 2:25 PM [facility] LABORATORYALBUMIN4.33.2 - 5.3 g/dL04/07/2025 2:25 PM [facility] LABORATORYALKALINE OAMOQWSJOOT7074 - 130 U/L1 2:25 PM [facility] NYFRJNSMAWJPD68(H)<=41 U/L1 2:25 PM [facility] ZXRGKPNUQVUDD07(H)<=40 U/L1 2:25 PM [facility] LABORATORYBILIRUBIN,TOTAL0.70.3 - 1.2 mg/dL04/07/2025 2:25 PM [facility] LABORATORYEGFR Non-Race Wgocglqeq10(L)>=60 ml/min/1.73sq.m 04/07/2025 2:25 PM [facility] LABORATORYComment: Reported eGFR is based on the CKD-EPI 2020 equation that does not use a race coefficient. Specimen (Source)Anatomical Location / LateralityCollection Method / Volume Collection TimeReceived TimeBloodVenous blood / UnknownVenipuncture / Unknown 04/07/2025 8:38 AM EDT1 8:38 AM EDT Narrative Authorizing ProviderResult TypeResult StatusWilly FRANKLIN BLOOD ORDERABLESFinal ResultPerforming OrganizationAddressCity/State/ZIP CodePhone Number [facility] [address] [place] [address], [place] [phone] * Ultrasound retroperitoneal complete (04/15/2024 9:55 AM EST)Anatomical Region LateralityModalityBodyUltrasoundSpecimen (Source)Anatomical Location / LateralityCollection Method / VolumeCollection TimeReceived Time04/15/2024 12:12 PM EST Narrative 04/15/2024 12:14 PM EST HISTORY: A 68-year-old male with the history of the increase urinary frequency and incontinence. TECHNIQUE: ??Multiple real-time images of the both kidneys and the urinary bladder are obtained. ??Color Doppler study is performed. COMPARISON: ??Comparison is made with the CT scan of the abdomen and pelvis of 04/04/2018. FINDINGS: ??Both kidneys are normal in position and configuration. ??Right kidney measures 11.7 x 5.4 x 5.0 Cms. ??Right renal cortical thickness measures 0.52 Cms . ??Left kidney measures 12.4 x 3.3x 5.4 ??Cms. ??Left renal cortical thickness measures 0.76 Cms. There is no evidence of hydronephrosis in the either kidney. Renal cortical echoes are within normal limits. ??No evidence of cystic or solid renal mass. Prevoid urinary bladder volume is 125 mL. ??No intraluminal abnormality seen. ??Right-sided ureteric jets are visualized. ??Left-sided ureteric jets are not visualized. ??Post void examination reveals significant residual urine and measures 103 mL. Prostatitic gland is enlarged and calculated prostatitic volume is 41 mL. IMPRESSION: * ?? No evidence of echogenic calculi or hydronephrosis in the either kidney. * ??No evidence of cystic or solid renal mass. * ??Significant post void residual urine and measures 103 mL. * ??Prostatitic enlargement. Finalized by Raghu Su MD on 04/15/2024 12:14 PM Procedure Note Raghu Su MD - 04/15/2024 HISTORY: A 68-year-old male with the history of the increase urinaryfrequency and incontinence. TECHNIQUE: Multiple real-time images of the both kidneys and the urinarybladder are obtained. Color Doppler study is performed. COMPARISON: Comparison is made with the CT scan of the abdomen and pelvisof 04/04/2018. FINDINGS: Both kidneys are normal in position and configuration. Rightkidney measures 11.7 x 5.4 x 5.0 Cms. Right renal cortical thicknessmeasures 0.52 Cms . Left kidney measures 12.4 x 3.3 x 5.4 Cms. Leftrenal cortical thickness measures 0.76 Cms. There is no evidence of hydronephrosis in the either kidney. Renal cortical echoes are within normal limits. No evidence of cystic orsolid renal mass. Prevoid urinary bladder volume is 125 mL. No intraluminal abnormalityseen. Right-sided ureteric jets are visualized. Left-sided ureteric jetsare not visualized. Post void examination reveals significant residualurine and measures 103 mL. Prostatitic gland is enlarged and calculated prostatitic volume is 41mL. IMPRESSION: * No evidence of echogenic calculi or hydronephrosis in the eitherkidney. * No evidence of cystic or solid renal mass. * Significant post void residual urine and measures 103 mL. * Prostatitic enlargement. Finalized by Raghu Su MD on 04/15/2024 12:14 PM Authorizing ProviderResult TypeResult StatusMiclaurie Dejuan Brice MDIMG US ORDERABLES Final Result * HM DIABETES EYE EXAM (03/31/2024 11:24 AM EDT) Narrative Authorizing ProviderResult TypeResult StatusNot In System Ref ProvHEALTH MAINTENANCEFinal ResultPerforming OrganizationAddressCity/State/ZIP CodePhone Number MANUALLY TRANSCRIBED RESULTS * Colonoscopy (04/30/2008) Narrative Authorizing ProviderResult TypeResult StatusNot In System Ref ProvGI PROCEDURE ORDERABLESFinal ResultPerforming OrganizationAddressCity/State/ZIP CodePhone Number [facility] [address] [facility] [place] [address] from Last 3 Months or Most Recently Relevant to Health Maintenance Insurance Care Teams Team MemberRelationshipSpecialtyStart DateEnd Date Willy Conteh MD [address] [phone] PCP - GeneralInternal Medicine10/05/24
--- OUTSIDE RECORDS SUMMARY | 2025-05-10 07:44 | XMS_ITS | Encounter Summary ---
Author Organization [facility] tem Address [id number] [address] [place] [address] Care Team Providers Care Clerical Proofreader Name Role Phone Willy Conteh MD Primary Care Provider [phone] Reason for Visit * ReasonOnset DateCommentsMed Byppnm1304/27/2025 Encounter Details DateTypeDepartmentCare Team (Latest Contact Info)Rnrkhumbkli27/17/2025Refill [facility] [address] [place] [phone] Willy Conteh MD [address] [place], [place] [phone] Cervical radiculopathy Social History Tobacco UseTypesPacks/DayYears UsedDateSmoking Tobacco: Some [...] you get together with friends or relatives?Patient kyqojsyo01/01/2021How often do you attend zoroastrian or yazdanism services?More than 4 times per year1Do you belong to any clubs or organizations such as zoroastrian groups, unions, fraternal or athletic iwona ups, or school groups?Yes05/10/2021How often do you attend meetings of the clubs or organizations you belong to?More than 4 times per year05/10/2021re you , , , , never , or living with a partner? Jeeuvvk4705/10/2021UDIT-CAnswerDate RecordedQ1: How often do you have a [...] care, and heating?Not hard at all11/22/2024PHQ-2AnswerDate RecordedTotal Fnnso523Finbrigham city [facility] [place] [facility] - Occupational Stress QuestionnaireAnswerDate [...] part of a household?No11/22/2024hildcareAnswerDate RecordedDo problems getting manager child make it difficult for you to work [...] InformationValueDate RecordedSex Assigned at BirthNot on fileLegal ZemBgdf9001/13/2015 11:36 AM EDTGender IdentityNot on fileSexual OrientationNot on filedocumented as of this encounter Plan of Treatment DateTypeDepartmentCare Team (Latest Contact Info)Tazqvbwixyk20/05/2025 10:30 AM ESTOffice Visit [facility] [address] [phone] Ray Leung MD [address] [place] [address] 08/24/2025 1:00 PM EDTOffice Visit [facility] [place] [phone] Willy Conteh MD [address] [place], [place] [phone] 08/30/2025 2:15 PM EDTOffice Visit [facility] [address] [place] [address] [place] [address] [place] [phone] Adi Narvaez MD [address] [place] [address] 11/24/2025 10:00 AM EDTOffice Visit [facility] [address] [place] [phone] Willy Conteh MD [address] [place] [phone] documented as of this encounter Visit Diagnoses Diagnosis Cervical radiculopathy Brachial neuritis or radiculitis nos documented in this encounter Additional Health Concerns AssessmentNoted TimePHQ-9 Depression Total Score: 11:04 AM EDTA Body Mass Index follow-up plan has been documented for the wyibvzd2912/21/2024 12:31 PM EDTdocumented as of this encounter Care Teams Team MemberRelationshipSpecialtyStart DateEnd Date Willy Conteh MD [address] [place] [address] PCP - GeneralInternal Medicine10/05/24documented as of this encounter
--- OUTSIDE RECORDS SUMMARY | 2025-05-10 07:44 | XMS_ITS | Patient Health Record ---
Author Organization [facility] Address [address] [place], [place] [id number] Care Team Providers Care Home Sales Service Professional Name Role Phone Kyra Portillo Unavailable [phone] Gilberto Sifuentes Unavailable [phone] Corry Lai Unavailable [phone] Allergies No Known Allergies Reason For Referral No Information Medications Medication SIG (Take, Route, Frequency, Duration) Notes Start Date End Date Status Atenolol 100 MG Tablet 1 tablet Orally Once a da y ActiveMultivitamin - Tablet1 tablet Orally Once a fmfRxraxmqkzvbZLDYryuj9771 mg twice dailyActiveVitamin D1000 dailyActiveSimponi Vjyt941ak every 8 wks.Active Ylmpgkwymwqbc8335 mg twice dailyActiveCitalopram & Diet Manage Prod40 mg daily ActiveMeloxicam 7.5 MG Tablet1 tablet Orally Once a dayActiveSpironolactone 25 MG Tablet1 tablet Orally Once a dayActiveSynthroid 50 MCG Tablet1 tablet in the morning on an empty stomach Orally Once a dayActiveAmoxicillinNot-Taking/PRN Furosemide 20 MG Tablet1 tablet Orally Once a dayActiveBiofreeze 10 % Creamas directed ExternallyActiveGabapentin 600 MG Tablet1 tablet Orally Once a day ActiveVoltaren 1 % Gelas directed ExternallyActivepredniSONE 5 MG Tablet1 tablet with food or milk Orally Once a dayActivePantoprazole Sodium 20 MG Tablet Delayed Release1 tablet 1/2 to 1 hour before morning meal Orally Once a day ActivemetFORMIN HCl 1000 MG Tablet1 tablet with a meal Orally Once a dayActive Tamsulosin HCl 0.4 MG Capsule1 capsule Orally Once a dayActiveLisinopril 20 MG Tablet1 tablet Orally Once a dayActivePravastatin Sodium 10 MG Tablet2 tablets Orally Once a dayActive Social History Tobacco Use: Social History Observation Description Date Details (start date - stop date) Current Smoker NA - NA Social History Tobacco Use:Social InfoQuestionAnswerNotesTobacco Control (Standard)Tobacco use: Current smoker? How often do you smoke cigarettes?Some days, but not every day? How many cigarettes a day do you smoke?5 or lessAdditional Findings: Tobacco userCigar smoker Problems Problem Type SNOMED Code ICD Code Onset Dates Problem Status W/U Status Risk Notes Problem Tobacco user (292230748) Cigaret te nicotine dependence without complication (F17.210) ActiveconfirmedProblemObese class II (931639542700945)BMI 36.0-36.9,adult (Z68.36)Activeconfirmed Vital Signs Heart Rate 71 /min 03/31/2025 Blood pressure ireefwcmz46 mm Hg03/31/2025Height-cm180.34 cm03/31/2025Weight-kg 117.94 kg03/31/20257233Zcelsh72 in03/31/2025lood pressure givqjagj907 mm Hg 03/31/20250926Fjgmgw604 lbs1MI36.26 kg/m203/31/2025 Encounters Encounter Location Date Provider Diagnosis [facility] [address] [place], [place] [phone] 12/28/2024 Corry Lai Dental caries into dentine K02.62 ; Caries of dentin K02.62 ; BMI 36.0-36.9,adult Z68.36 ; Cigarette nicotine dependence without complication F17.210 ; Encounter for screening for dental disorders Z13.84 and Encounter for dental examination and cleaning with abnormal findings Z01.21 [facility] [address] [place], [place] [phone] 01/04/2025 Gilberto Sifuentes BMI 36.0-36.9,adul t Z68.36 ; Encounter for dental examination and cleaning with abnormal findings Z01.21 ; Cigarette nicotine dependence without complication F17.210 ; Dietary counseling Z71.3 and Exercise counseling Z71.82 [facility] [address] [place], [place] [phone] 03/08/2025 Kyra Portillo Dental caries into dentine K02.62 [facility] [address] [place], [place] [phone] 03/31/2025 Kyra Portillo BMI 36.0-36.9,adul t Z68.36 Assessments Encounter Date Diagnosis (ICD Code) Assessment Notes Treatment Notes Treatment Clinical Notes Section Notes 12/28/2024 Dental caries into dentine (ICD- 10 - K02.62) 01/04/2025MI 36.0-36.9,adult (ICD-10 - Z68.36)03/08/2025Dental caries into dentine (ICD-10 - K02.62)03/31/2025MI 36.0-36.9,adult (ICD-10 - Z68.36) 12/28/2024aries of dentin (ICD-10 - K02.62)01/04/2025Encounter for dental examination and cleaning with abnormal findings (ICD-10 - Z01.21)12/28/2024MI 36.0-36.9,adult (ICD-10 - Z68.36)01/04/2025igarette nicotine dependence without complication (ICD-10 - F17.210)Patient provided with [phone] phone line. Patient provided with [phone]-Now phone line.01/04/2025Dietary counseling (ICD-10 - Z71.3)12/28/2024igarette nicotine dependence without complication (ICD-10 - F17.210)Patient provided with [phone]-Now phone line.12/28/2024 Encounter for screening for dental disorders (ICD-10 - Z13.84)01/04/2025Exercise counseling (ICD-10 - Z71.82)12/28/2024Encounter for dental examination and cleaning with abnormal findings (ICD-10 - Z01.21) Plan Of Treatment Next Appt Details Provider Name:Gilberto Hardingkrunal , 07/16/2025 09:45:00 AM, [address] [place], [place], [phone], Insurance Providers Payer Name Payer Address Payer Phone Subscriber Number Group Number Insured Name Patient Relationship to Insured Coverage Start Date Coverage End Date DAetna Fee Schedule [address] [place], [place] [phone] [id number], JeffreySelf - patient is the [id number] 2025 Medical (General) History Medical History History ICD Code Diabetes High Blood pressureAnxietyNerve problemsArthritis
--- OUTSIDE RECORDS SUMMARY | 2025-05-10 07:44 | XMS_ITS | Clinical Summary ---
Author Organization [facility] Address [facility] [place] [address] Care Team Providers Care Pharmacy Director Name Role Phone David Bolden Primary Care Provider [phone] Allergies No known active allergies Medications MedicationSigDispense QuantityRefillsLast FilledStart DateEnd DateStatus atenolol (TENORMIN) 100 mg tablet Take 100 mg by mouth once daily.Active lisinopril (ZESTRIL, PRINIVIL) 20 mg tablet Take 20 mg by mouth once daily.Active metFORMIN (GLUCOPHAGE) 1,000 mg tablet Take 500 mg by mouth twice daily.Active hydrochlorothiazide (HYDRODIURIL, ESIDRIX) 50 mg tablet Take 50 mg by mouth once daily.Active citalopram (CELEXA) 20 mg tablet Take 40 mg by mouth once daily. Active inFLIXimab (REMICADE) 100 mg injection Inject intravenously. Takes 700 mL every 6 weeksActive prednisoLONE 5 mg tab Take 5 mg by mouth as needed.Active ASPIRIN/ACETAMINOPHEN/CAFFEINE (MIGRAINE FORMULA ORAL) Take by mouth once daily.Active Cholecalciferol, Vitamin D3, 10,000 unit cap Take by mouth once daily.Active MAGNESIUM GLYCINATE ORAL Take 200 mg by mouth once daily.Active sulfaSALAzine (AZULFIDINE) 500 mg tablet Take 1,000 mg by mouth twice daily.Active tiZANidine HCl (ZANAFLEX) 2 mg capsule Take 4 mg by mouth once daily.Active PREDNISONE ORAL Take by mouth.Active GABAPENTIN ORAL Take by mouth.Active spironolactone-hctz 25/25 (ALDACTAZIDE) 25-25 mg per tablet Take 1 tablet by mouth once daily.Active cholecalciferol (VITAMIN D-3) 50 mcg (2,000 unit) tablet Take 2,000 Units by mouth once daily.Active Active Problems ProblemNoted DateDiagnosed DateCirrhosis of liver without cidediw0904/24/2017 Encounters DateTypeDepartmentCare YywqYuaeyvxzrfw84/05/2025Telephone [facility] [address] [phone] [facility] [address] [place] [address] Guru Rea MD Appointment (Due for US 05/2025)from Last 3 Months Family History Medical HistoryRelationCommentsmass heart failureFathertumor tutory glandFather Heart FailureMotherBreast CancerSisterNo Family HistoryNo Family Historycolon cancer or polypsRelationStatusCommentsFatherMotherSisterAlive Social History Tobacco UseTypesPacks/DayYears UsedDateSmoking Tobacco: Every DayCigarsSmokeless Tobacco: Never Comments:Cigar occasionally Alcohol UseStandard Drinks/WeekCommentsYes0 (1 standard drink = 0.6 oz pure alcohol)rarelyArea Deprivation IndexAnswerDate RecordedNational Score (1-100), lower number is lower riskNot on file05/17/2020State Score (1-10), lower number is lower riskNot on file05/17/2020Data from: https://www.neighborhoodatlas.medicine.[facility].edu/. Last address used for calculationNot on file05/17/2020Sex and Gender InformationValueDate RecordedSex Assigned at BirthNot on fileLegal CchIrug3110/18/2014 9:38 PM EDTGender Identity Not on fileSexual OrientationNot on file Last Filed Vital Signs Vital SignReadingTime TakenCommentsBlood Rorskiqr226/8204/25/2018 9:22 AM EST Ziyce398304/25/2018 9:22 AM PHQIonvpzlttab05.7 ??C (98.1 ??F)04/25/2018 9:22 AM ESTRespiratory Rate--Oxygen Phahbaorph66%04/25/2018 9:22 AM ESTInhaled Oxygen Concentration--Xyowuo265.6 kg (268 lb)04/25/2018 9:22 AM GVAMbjhit409.9 cm (6') 04/25/2018 9:22 AM ESTBody Mass Index36.35106/25/2017 9:22 AM EST Plan of Treatment Health MaintenanceDue DateLast DoneCommentsAbdominal Aortic Aneurysm Screening 5Anxiety Xtitacnvh83/03/1973Depression Wvwsxotwc69/03/1973Pneumococcal Vaccine: 50+ (1 of 2 - PCV)1973Shingrix Vaccine (1 of 2)1973CT Yqmlranhyrqh27/03/2000Cologuard (FIT-DNA)08/11/1999Fecal Occult Blood08/11/1999 Edqzgpddjxisa08/03/2000Hepatitis B Vaccine (1 of 3 - Risk 3-dose series) 2014RSV Vaccine (1 - Risk 60-74 years 1-dose series)2014Medicare Annual Wellness Visit02/08/20199375Ybrbirsszph75Colorectal Cancer Olaxzfgnl94/26/2021DTaP,Tdap,Td Vaccine (2 - Td or Tdap)/ Advance Directive Ftskhynpxk26/01/2025Covid-19 Vaccine ( season) /, 04/27/2021, 09/05/2020, Additional history existsInfluenza Vaccine (#1)/, 04/23/2022, 06/05/2021, Additional history existsDiabetes Nysghgnpg67/, 03/23/2024, 03/23/2024, Additional history existsLipid Grwntypai43/, 11/21/2022, 05/16/2022, Additional history existsHepatitis C OxrltjmrxJkcjuknle50/10/2015 Procedures Procedure NamePriorityDate/TimeAssociated DiagnosisCommentsHEMOGLOBIN I9LCrbnjon 03/29/2023 1:09 PM EDT Diabetes mellitus without complication (HCC) Preop examination HEP REMOTE PANEL EBWaoqbmh17/10/2015 2:43 PM EDT Chronic liver disease Fatty liver from Last 3 Months or Most Recently Relevant to Health Maintenance Results * (ABNORMAL) HGB A1C (03/29/2023 1:09 PM EDT)ComponentValueRef RangeTest Method Analysis TimePerformed AtPathologist SignatureHemoglobin A1C6.3(H)4.3 - 5.6 % 03/29/2023 8:32 PM [facility] LABComment:[place] Diabetes Association guidelines indicate that patients with HgbA1c in the range 5.7-6.4% are at increased risk for development of diabetes, and intervention by lifestyle modification may be beneficial. HgbA1c greater or equal to 6.5% is considered diagnostic of diabetes.Estimated Average Glucose 134mg/dL03/29/2023 8:32 PM [facility] LABComment:eAG: (Estimated average glucose) is a calculated value from HgbA1c and is software sales representative of the average blood glucose level in the last 2-3 month period.Specimen (Source)Anatomical Location / LateralityCollection Method / VolumeCollection TimeReceived TimeBloodBLOOD SPECIMEN / UnknownVenipuncture / Xyfkxub3503/29/2023 1:09 PM EDT1 1:09 PM EDT Narrative Authorizing ProviderResult TypeResult StatusPaige Paystrup CNPLABORATORYFinal ResultPerforming OrganizationAddressCity/State/ZIP CodePhone Number [facility] [address] [place] [address], * HEP REMOTE PANEL BL (12/17/2014 2:43 PM EDT)ComponentValueRef RangeTest Method Analysis TimePerformed AtPathologist SignatureHep B Core Ab, TotalNegative Idtwgqsb24/10/2015 9:39 PM [facility] LABORATORYHep C Antibody HWDihoaxmfObqoozed02/10/2015 9:39 PM EDTR[facility] LABORATORYHBsAg OwbnwrjgYmtpecyh83/10/2015 9:39 PM [facility] LABORATORYHep B Surface Ab, JtdsInqrmjdaBwjlumld88/10/2015 9:40 PM [facility] LABORATORYComment:NEGATIVESpecimen (Source)Anatomical Location / Laterality Collection Method / VolumeCollection TimeReceived TimeBlood specimen (specimen)BLOOD SPECIMEN / Dbgyhko3812/17/2014 2:43 PM EDT12/17/2014 2:45 PM EDT Narrative Authorizing ProviderResult TypeResult StatusSafavio Rea MDLABORATORYFinal Result Performing OrganizationAddressCity/State/ZIP CodePhone Number [facility] [address] [place] [address] from Last 3 Months or Most Recently Relevant to Health Maintenance Insurance Care Teams Team MemberRelationshipSpecialtyStart DateEnd Date David Bolden PCP - GeneralFamily Medicine10/18/14
--- OUTSIDE RECORDS SUMMARY | 2025-05-10 07:45 | XMS_ITS | Clinical Summary ---
Author Organization [facility] Address [address] [facility] [place] [address] Care Team Providers Care Colorer Machine Name Role Phone Unavailable Primary Care Provider Unavailabl e Source Comments The following information is NOT included in Care Everywhere downloads:Psychiatric notes, ECG results, Cardiac Rehab notes, Pulmonary Function notes, data from SmartForms (includes but not limited toPregnancy data,audiograms, eye exams, pre-surgical evaluation notes, well-child exam data).[facility] Allergies No known active allergies Medications MedicationSigDispense QuantityRefillsLast FilledStart DateEnd DateStatus atenolol (TENORMIN) 100 MG tablet Take 100 mg by mouth daily.Active lisinopril (ZESTRIL) 20 MG tablet Take 20 mg by mouth daily.Active hydrochlorothiazide (HYDRODIURIL) 50 MG tablet Take 50 mg by mouth daily.Active tizanidine (ZANAFLEX) 4 MG capsule Take 4 mg by mouth 3 times daily.Active citalopram (CELEXA) 20 MG tablet Take 20 mg by mouth daily.Active SULFASALAZINE ORAL Take by mouth.Active InFLIXimab (REMICADE IV) Inject intravenously.Active gabapentin (NEURONTIN) 300 MG capsule Take 300 mg by mouth 2 times daily.Active predniSONE (DELTASONE) 5 MG tablet Take 5 mg by mouth daily as needed. For flareActive metformin (GLUCOPHAGE) 500 MG tablet Take 500 mg by mouth 2 times daily (with meals).Active Cholecalciferol 31193 UNITS CAPS Take by mouth.Active MAGNESIUM GLYCINATE PLUS ORAL Take 200 mg by mouth.Active acetaminophen-codeine (TYLENOL #3) 300-30 MG per tablet Take 1 Tablet by mouth every 4 hours as needed for Pain. 40 Tablet 108/01/2016Active InFLIXimab (REMICADE IV) Indications:Psoriatic arthritis (HCC),Osteochondroma of forearm, rightInject intravenously. Every 6 weeksActive Active Problems ProblemNoted DateDiagnosed DateCarpal tunnel syndrome of right wrist11/09/2015 Psoriatic qdgnueqyc43/17/2014iceps rupture, posrzd5706/26/2013 Social History Tobacco UseTypesPacks/DayYears UsedDateSmoking Tobacco: FormerSmokeless Tobacco: NeverAlcohol UseStandard Drinks/WeekCommentsNo0 (1 standard drink = 0.6 oz pure alcohol)Substance UseTypesUse/WeekCommentsNoSex and Gender InformationValueDate RecordedSex Assigned at BirthNot on fileLegal QwbNoxy16/10/2013 10:22 AM EST Gender IdentityNot on fileSexual OrientationNot on file Last Filed Vital Signs Vital SignReadingTime TakenCommentsBlood Qgnswtez189/7708 8:15 AM EDT Hcymd9629/01/2016 8:15 AM MBPEksowzldupy23.9 ??C (98.4 ??F)01/09/2016 8:10 AM EDTRespiratory Youp962701/09/2016 8:15 AM EDTOxygen Rpcsrsndry42%01/09/2016 8:15 AM EDTInhaled Oxygen Concentration--Weight--Height--Body Mass Index-- Plan of Treatment Health MaintenanceDue DateLast XarpZuasrfjaUmaolvqrdyz18/03/1956Hepatitis C Adrjpwsn31/03/1973Tdap Fupzaph5308/10/1972Hepatitis A (HAV) Vaccine (optional start 19+ years)08/10/19736799Hiafazepopd73/03/1990CRC Ryxdnrfyw06/03/2000Cologuard (Stool DNA)08/11/1999FIT08/11/1999Pneumococcal Vaccine(s) (50+ yrs) (1 of 1 - PCV)2004Shingles (RZV) Vaccine (1 of 2)2004Hepatitis B (HBV) Vaccine (optional start 60+ years)2014bdominal Aortic Aneurysm Vjvaqzw2008/11/2019 COVID-19 Vaccine (1 - 2024- season)2025Influenza Vaccine (#1)2025 RSV vaccine (adult) (1 - 1-dose 75+ series)2029 Insurance
--- OUTSIDE RECORDS SUMMARY | 2025-05-10 07:45 | XMS_ITS | Clinical Summary ---
Author Organization [facility] Address [address], [address] [place] [address] Care Team Providers Care Video Journalist Name Role Phone David Pérez MD Primary Care Provider Allergies Active AllergyReactionsCriticalityNoted VvorCzscaufuCwbbtjwong84/06/2017 Unknown reaction to patient Medications MedicationSigDispense QuantityRefillsLast FilledStart DateEnd DateStatus gabapentin (NEURONTIN) 100 MG capsule Indications:Cervical radiculopathyTake 1 capsule by mouth 3 times daily for 31 days. 90 capsule Active Additional Information Patient taking differently: 300 mgOral2 TIMES DAILY, Reported on 10/05/2020 atenolol (TENORMIN) 100 MG tablet Take 100 mg by mouth dailyActive lisinopril (PRINIVIL;ZESTRIL) 20 MG tablet Take 20 mg by mouth dailyActive metFORMIN (GLUCOPHAGE) 1000 MG tablet Take 1,000 mg by mouth 2 times daily (with meals)Active spironolactone (ALDACTONE) 25 MG tablet Take 25 mg by mouth dailyActive citalopram (CELEXA) 20 MG tablet Take 20 mg by mouth dailyActive inFLIXimab (REMICADE IV) Indications:every 6 weeksInfuse 900 mg intravenously Indications: every 6 weeks Active gabapentin (NEURONTIN) 600 MG tablet Take 600 mg by mouth nightly.Active SULFASALAZINE PO Take 1,000 mg by mouth 2 times dailyActive furosemide (LASIX) 20 MG tablet Take 20 mg by mouth daily09/22/2020ctive diclofenac sodium (VOLTAREN) 1 % GEL as ajqcxu2801/15/2020Active prednisoLONE 5 MG TABS Take 5 mg by mouth as needed (takes 5 - 10 mg with flare - up)Active rmnpter-twotisgplrgue-odopmdjj (EXCEDRIN MIGRAINE) 250-250-65 MG per tablet Take 1 tablet by mouth 2 times dailyActive Multiple Vitamins-Minerals (THERAPEUTIC MULTIVITAMIN-MINERALS) tablet Take 1 tablet by mouth dailyActive Turmeric 500 MG CAPS Take by mouth dailyActive CPAP Machine MISC by Does not apply routeActive Active Problems ProblemNoted DateDiagnosed DatePost laminectomy nntjlnzu77/28/2021Former smoker, stopped smoking in distant past10/05/2020evere obesity (BMI 35.0-39.9) with yrnehtpsatj85/31/2019Essential hypertension, batwqw0810/22/2017Gastroesophageal reflux disease without vezectujgns63/15/2018Cirrhosis of liver without ascites 04/24/2017Partial recent retinal detachment with single espuye0105/24/2014Vitreous /15/2014Psoriatic lsjwhrotv39/17/2014 Immunizations ImmunizationAdministration DatesNext DueCOVID-19, Inactive, MODERNA BLUE border, Primary or Immunocompromised, (age 12y+)09/05/2020,08/05/2020TDaP, ADACEL (age 10y-64y), BOOSTRIX (age 10y+), IM, 0.5mL11/27/2013 Family History Medical HistoryRelationNameCommentsHigh Blood PressureBrotherx 1No Known ProblemsDaughterx 2CancerFatherbrain cancer & luekemiaHeart AttackFatherHeart DiseaseFatherOtherFatherDVT issuesCoronary Art DisMotherDiabetesMotherHeart DiseaseMotherHigh Blood PressureMotherBreast CancerSisterx 1RelationNameStatus CommentsBrotherx 1AliveDaughterx 2AliveFatherDeceasedMotherDeceasedSisterx 1 AliveSonnone Social History Tobacco UseTypesPacks/DayYears UsedDateSmoking Tobacco: NgseiwWanuhckrgm902 10/06/1979 - 10/05/2004CigarsSmokeless Tobacco: Never Comments:social cigar smoker Alcohol UseStandard Drinks/WeekCommentsNot Currently0 (1 standard drink = 0.6 oz pure alcohol)AUDIT-CAnswerDate RecordedQ1: How often do you have a drink containing alcohol?Never10/05/2020verage Number of DrinksNot on file10/05/2020 Frequency of Binge DrinkingNot on file10/05/2020ex and Gender InformationValue Date RecordedSex Assigned at BirthNot on fileLegal JehJuyi0307/20/2012 5:15 PM EST Gender IdentityNot on fileSexual OrientationNot on file Last Filed Vital Signs Vital SignReadingTime TakenCommentsBlood Wnidqhnf387/8706 9:00 AM EDT Qkwpi526311/16/2020 9:00 AM FWPKxznnrerzxr02.1 ??C (96.9 ??F)11/16/2020 9:00 AM EDTRespiratory Grnh416211/01/2020 3:37 PM EDTOxygen Dmcgvjlpmf55%11/01/2020 3:37 PM EDTInhaled Oxygen Concentration--Kshzlx076.2 kg (265 lb)11/16/2020 9:00 AM MIYMevsey828.9 cm (6')11/16/2020 9:00 AM EDTBody Mass Index35.9411/16/2020 9:00 AM EDT Plan of Treatment Health MaintenanceDue DateLast DoneCommentsDepression Qxywqn1208/10/1966Hepatitis C mrscqp4108/10/19726214Ynjdpb08/03/4564Ufrpnnqawhm33/03/2000Colorectal Cancer Screen 08/11/1999FIT/FOBT: Average risk08/11/1999Fecal-DNA (Cologuard): Average risk 08/11/1999Sigmoidoscopy/CT jgcbpizepmnh26/03/2000Pneumococcal 50+ years Vaccine (1 of 1 - PCV)2004Shingles vaccine (1 of 2)2004AAA lqgtca5108/11/2019 A1C test (Diabetic or Prediabetic)/1DTaP/Tdap/Td vaccine (2 - Td or Tdap)/Flu vaccine (#1), 03/30/2019, 03/19/2018, Additional history existsCOVID-19 Vaccine (3 - season) /, 08/05/2020espiratory Syncytial Virus (RSV) or age 60 yrs+ (1 - 1-dose 75+ series)2029Diabetes screenDiscontinued 10/05/2020Hepatitis A vaccineAged OutNo longer eligible based on patient's age to complete this topicHepatitis B vaccineAged OutNo longer eligible based on patient's age to complete this topicHib vaccineAged OutNo longer eligible based on patient's age to complete this topicMeningococcal (ACWY) vaccineAged OutNo longer eligible based on patient's age to complete this topicMeningococcal B vaccineAged OutNo longer eligible based on patient's age to complete this topic Polio vaccineAged OutNo longer eligible based on patient's age to complete this topic Medical Devices ImplantedTypeAreaManufacturerDevice IdentifierShelf Expiration DateModel / Serial / LotKit Ld L60cm 1x8 Comp Trl Scrn For Sacr Nrv Stim Vectris Implanted:Qty: 1 on 10/11/2020 by Eyal Jesus MD at [facility] N/A: Spine LumbarMEDTRONIC NEUR[employer]-WD08/20/[id number] / / [id number] Ld L60cm 8 Electrd Perc Comp Contain Ld Anchr Gwire Ndl Implanted:Qty: 1 on 11/01/2020 by Eyal Jesus MD at [facility] N/A: Back[employer]-WD08/25/[id number] / / [id number] Ld L60cm 8 Electrd Perc Comp Contain Ld Anchr Gwire Ndl Implanted:Qty: 1 on 11/01/2020 by Eyal Jesus MD at [facility] N/A: Back[employer]-WD10/10/[id number] / / [id number] Neurostimulator 13.9cc W1.9xh2.2in 29.1gm Rechrg - [id number] Implanted:Qty: 1 on 11/01/2020 by Eyal Jesus MD at [facility] Left: ButtocksMEDTR[employer]IC NEUR[employer]-[id number] / [id number] / Procedures Procedure NamePriorityDate/TimeAssociated DiagnosisCommentsHEMOGLOBIN Y8TBoqfajn 10/05/2020 11:37 AM EDT from Last 3 Months or Most Recently Relevant to Health Maintenance Results * (ABNORMAL) Hemoglobin A1C (10/05/2020 11:37 AM EDT)ComponentValueRef RangeTest MethodAnalysis TimePerformed AtPathologist SignatureHemoglobin A1C6.4(H)4.8 - 5.9 %10/05/2020 11:35 AM [facility] LABSpecimen (Source) Anatomical Location / LateralityCollection Method / VolumeCollection Time Received TimeBLOOD SPECIMEN / Lmebbjd7410/05/2020 11:37 AM EDT10/05/2020 11:37 AM EDT Narrative Authorizing ProviderResult TypeResult StatusPatricia Caty Patton LENS CLEANER - NEUROSURGERY SPINE PHYSICIAN CHEMISTRY ORDERABLESFinal ResultPerforming OrganizationAddressCity/State/ZIP CodePhone Number [facility] [address] [place] [place] [address], [facility] [phone] from Last 3 Months or Most Recently Relevant to Health Maintenance Insurance Care Teams Team MemberRelationshipSpecialtyStart DateEnd David Pérez MD [address] [place] [address] PCP - GeneralFamily Medicine07/22/20
--- OUTSIDE RECORDS SUMMARY | 2025-05-10 07:45 | XMS_ITS | Clinical Summary ---
Author Organization [facility] Address [address] [place] [address] Care Team Providers Care Drier Feeder Name Role Phone David Pérez MD Primary Care Provider Alireza Billingsley MD Unavailable Allergies Active AllergyReactionsCriticalityNoted DateCommentsParoxetineDizziness,RashLow 04/15/2017 Unknown reaction to patient Medications MedicationSigDispense QuantityRefillsLast FilledStart DateEnd DateStatus atenolol (Tenormin) 100 MG tablet 1 (one) time each day at the same time.Active lisinopril 20 MG tablet 1 (one) time each day at the same time.Active metFORMIN (Glucophage) 1000 MG tablet Take 500 mg by mouth in the morning and 500 mg in the evening.Active spironolactone-hydroCHLOROthiazide (Aldactazide) 25-25 MG tablet Take 1 tablet by mouth in the morning.Active sulfaSALAzine (Azulfidine) 500 MG tablet Take 1,000 mg by mouth in the morning and 1,000 mg in the evening.10/26/2022 Active cholecalciferol (Vitamin D-3) 50 MCG (1999 UT) tablet Take 2,000 Units by mouth in the morning.Active citalopram (CeleXA) 40 MG tablet Take 40 mg by mouth in the morning.11/19/2022ctive furosemide (Lasix) 20 MG tablet Take 20 mg by mouth in the morning.01/07/2023ctive levothyroxine (Synthroid, Levoxyl) 50 MCG tablet Take 50 mcg by mouth in the morning.02/12/2023ctive Multiple Vitamins-Minerals (Centrum Silver 50+Men) tablet as directed OrallyActive Chlorhexidine Gluconate (Hibiclens) 4 % solution Indications:Visit for pre-operative examinationApply topically in the morning and in the evening for 2 days Shower with soap the night before surgery and morning of surgery. 118 mL 10/03/2023ctive pravastatin (Pravachol) 10 MG tablet Take 10 mg by mouth at ysoomhr3006/10/2023ctive gabapentin (Neurontin) 300 MG capsule Indications:Acute pain of left shoulderTAKE 2 CAPSULES IN THE MORNING, 1 CAPSULE IN THE AFTERNOON AND 2 CAPSULES AT BEDTIME, 90 Days. Due now 450 capsule 5Active Active Problems ProblemNoted DateDiagnosed DateChronic midline low back pain without sciatica 07/17/2024ilateral hip pain07/17/2024ilateral knee pain07/17/2024Psoriatic arthritis of multiple bjtjzh395Acute pain of left shlhfmmo94/08/2023S/P reverse total shoulder arthroplasty, left04/17/2023Osteoarthritis of left glenohumeral joint, secondary to rotator cuff tear12/19/2022 Resolved Problems ProblemNoted DateDiagnosed DateResolved DateRotator cuff arthropathy of left Family History Medical HistoryRelationNameCommentsHeart diseaseFatherLeukemiaFatherDiabetes MotherHeart diseaseMotherHypertensionMotherCancerOtherDiabetesOtherHeart disease OtherHypertensionOtherRelationNameStatusCommentsFatherDeceasedMotherDeceased Other Social History Tobacco UseTypesPacks/DayYears UsedDateSmoking Tobacco: Some DaysCigarettesLast attempted to quit: 06/10/2004CigarsSmokeless Tobacco: Never Tobacco Cessation:Ready to Q uit: Not Asked Comments:smoke 1-2 cigars / week Alcohol UseStandard Drinks/WeekCommentsNot Currently0 (1 standard drink = 0.6 oz pure alcohol)Sex and Gender InformationValueDate RecordedSex Assigned at Male07/08/2022 1:04 PM EDTLegal GbsVvjt4708/22/2022 7:21 PM EDTGender IdentityMale 12/10/2022 1:04 PM EDTSexual IfrzvgygmumNfhssfmg96/03/2023 1:04 PM EDT Last Filed Vital Signs Vital SignReadingTime TakenCommentsBlood Agbuuhpr673/78008/17/2024 12:03 PM EDT Pulse--Temperature--Respiratory Oqma5348 12:09 PM EDTOxygen Saturation-- Inhaled Oxygen Concentration--Iuxvjh787 kg (268 lb)08/17/2024 12:03 PM EDTHeight 182.9 cm (6')08/17/2024 12:03 PM EDTBody Mass Index36.35008/17/2024 12:03 PM EDT Plan of Treatment Not on file Insurance Care Teams Team MemberRelationshipSpecialtyStart DateEnd David Pérez MD PCP - GeneralFamily Nyyfyeaa21/20/23 Alireza Billingsley MD Referring PhysicianNeurology08/20/23
--- OUTSIDE RECORDS SUMMARY | 2025-05-10 07:45 | XMS_ITS | Continuity of Care Document ---
Author [facility] Address [address] [place] [address] Problems Unknown Problems Results Test Result Date/Time Value / Unit Interp. Refere nce Range SARS-CoV-2 (COVID-19), RT-PC R/TMA[[id number]] Collected: 05/16/2021 02:05 PM Specimen Received: 05/17/2021 07:41 PM Source: [facility] SARS-CoV-2 INTERPRETATION [[id number]] 05/18/2021 01:49 A M Negative See JqtjIWNE-XgQ-1 RNA NOT DETECTEDNegative results do not preclude SARS-CoV-2 infection and should notbe used as the sole basis for patient management decisions. Negativeresults must be combined with clinical observations, patient history,and epidemiological information. Optimum specimen types and timingfor peak viral levels during infections caused by SARS-CoV-2 have notbeen determined. Collection of multiple specimens or types ofspecimens may be necessary to detect virus. Improper specimencollectionand handling, sequence variability under primers/probes,or organism present below the limit of detec tion may lead to falsenegative results. Positive and negative predictive values oftesting are highly dependent on prevalence. False negative testresults are more likely when prevalence is high.SOURCE [[id number]]05/18/2021 01:49 AM NASOPHARYNGEALNote: Methodology is Gia Camilo Real-Time RT-PCR. The expected result or reference range is NEGATIVE (Not Detected). For more information regarding COVID-19 testing to include clinicalinformation, methodology detail, intended use, FDA authorization andrecommended fact sheets for patients or healthcare providers, see NewBruxie Announcement: SARS-CoV-2 (COVID-19) by NAAT at URL below (note,fact sheets are provided by method given in report:[email or web address]/ Alternatively, see downloadable PDF fact sheet at:https://www.FileHold Document Management software.[employer]vertising/WWJVQ-93-OZ-PCR Allergies, adverse reactions, alerts No known allergies and adverse reactions Medications No administered medications reported Vital Signs No vital signs reported Social History No smoking Hx information available
--- OUTSIDE RECORDS SUMMARY | 2025-05-10 07:45 | XMS_ITS | Clinical Summary ---
Author Organization [facility] Address [address] [place] [address] Phone Care Team Providers Care Switchboard Wire Worker Helper Name Role Phone David Pérez MD Primary Care Provider Unavailable Social History Tobacco UseTypesPacks/DayYears UsedDateSmoking Tobacco: Never AssessedSex and Gender InformationValueDate RecordedSex Assigned at BirthNot on fileLegal Sex Male05/04/2022 8:27 PM ESTGender IdentityNot on fileSexual OrientationNot on file Plan of Treatment Health MaintenanceDue DateLast DoneCommentsCT Fgwdainoommn47/03/1955FIT-DNA (Cologuard)1954FIT1954Lipid Panel1954Medicare Annual Wellness Visit (AWV)1955 4362Thpvwewqpqhte04/03/1955TSH Level1954MMR Vaccines (1 of 1 - Standard series)08/11/1955Hepatitis C Zgtevxdpw76/03/1973Hepatitis A Vaccines (1 of 2 - Risk 2-dose series)1973Pneumococcal Vaccine (1 of 1 - PCV)2004RSV High Risk: (Elderly (60+) or Population) (1 - Risk 50-74 years 1-dose series)2004Zoster Vaccines (1 of 2)2004Hepatitis B Vaccines (1 of 3 - Risk 3-dose series)2014DTaP/Tdap/Td Vaccines (2 - Td or Tdap)/Influenza Vaccine (#1)/, 04/23/2022, 06/05/2021, Additional history existsCOVID-19 Vaccine ( season)/, 04/27/2021, 09/05/2020, Additional history exists Diabetes Huemyassv87/12/2023, 03/29/2023, 1Colonoscopy Colorectal Cancer Lqozmusqc01/26/2030HIB VaccinesAged OutNo longer eligible based on patient's age to complete this topicHPV VaccinesAged OutNo longer eligible based on patient's age to complete this topicIPV Vaccines Aged OutNo longer eligible based on patient's age to complete this topic Meningococcal VaccineAged OutNo longer eligible based on patient's age to complete this topicRotavirus VaccinesAged OutNo longer eligible based on patient's age to complete this topic Procedures Procedure NamePriorityDate/TimeAssociated DiagnosisCommentsCOMPREHENSIVE METABOLIC ZCJADBlrhwid96/07/2024 2:51 PM EDT Encounter for preprocedural laboratory examination from Last 3 Months or Most Recently Relevant to Health Maintenance Results * (ABNORMAL) Comprehensive Metabolic Panel (01/15/2024 2:51 PM EDT)Component ValueRef RangeTest MethodAnalysis TimePerformed AtPathologist SignatureGlucose 119(H)74 - 99 mg/dL LAB CHEMISTRY METHOD 01/15/2024 3:20 PM [facility] WDZDdlztu537827 - 145 mmol/L LAB CHEMISTRY METHOD 01/15/2024 3:20 PM [facility] LABPotassium4.73.5 - 5.3 mmol/L LAB CHEMISTRY METHOD 01/15/2024 3:20 PM [facility] QRUYueyuviq12105 - 107 mmol/L LAB CHEMISTRY METHOD 01/15/2024 3:20 PM [facility] DRSDyxxdedbypd4999 - 32 mmol/L LAB CHEMISTRY METHOD 01/15/2024 3:20 PM [facility] LABAnion Ele4345 - 20 mmol/L LAB CHEMISTRY METHOD 01/15/2024 3:20 PM [facility] LABUrea Keamfawv87(H)6 - 23 mg/dL LAB CHEMISTRY METHOD 01/15/2024 3:20 PM [facility] LABCreatinine1.49(H)0.50 - 1.30 mg/dL LAB CHEMISTRY METHOD 01/15/2024 3:20 PM [facility] AHEzEJC50(L)>60 mL/min/1.73m*2 LAB CHEMISTRY METHOD 01/15/2024 3:20 PM [facility] LABComment: Calculations of estimated GFR are performed using the 2020 CKD-EPI Study Refit equation without therace variable for the IDMS-Traceable creatinine methods. https://jasn.asnjournals.org/content/early//ASN.8215663852 Calcium8.98.6 - 10.3 mg/dL LAB CHEMISTRY METHOD 01/15/2024 3:20 PM [facility] LABAlbumin3.93.4 - 5.0 g/dL LAB CHEMISTRY METHOD 01/15/2024 3:20 PM [facility] LABAlkaline Ozjcctdvkiv0458 - 136 U/L LAB CHEMISTRY METHOD 01/15/2024 3:20 PM [facility] LABTotal Protein6.96.4 - 8.2 g/dL LAB CHEMISTRY METHOD 01/15/2024 3:20 PM [facility] UDAHKO656 - 39 U/L LAB CHEMISTRY METHOD 01/15/2024 3:20 PM [facility] LABBilirubin, Total0.40.0 - 1.2 mg/dL LAB CHEMISTRY METHOD 01/15/2024 3:20 PM [facility] HNLEAC2279 - 52 U/L LAB CHEMISTRY METHOD 01/15/2024 3:20 PM [facility] LABComment:Patients treated with Sulfasalazine may generate falsely decreased results for ALT.Specimen (Source) Anatomical Location / LateralityCollection Method / VolumeCollection Time Received TimeBloodVenous blood specimen / UnknownVenipuncture / Unknown 01/15/2024 2:51 PM EDT01/15/2024 2:53 PM EDT Narrative Authorizing ProviderResult TypeResult StatusNicUSA Health [facility] BLOOD ORDERABLESFinal ResultPerforming OrganizationAddressCity/State/ZIP CodePhone Number [facility] [address] [place] [address] from Last 3 Months or Most Recently Relevant to Health Maintenance Insurance Care Teams Team MemberRelationshipSpecialtyStart DateEnd Date David Pérez MD PCP - [facility]04/02/23
--- OUTSIDE RECORDS SUMMARY | 2025-05-10 07:45 | XMS_ITS | Patient Health Record ---
Author Organization [facility] Address [address] [place] [address] Care Team Providers Care Lcac Operator Name Role Phone None, Unknown or Primary Care Provider Unavailab le Reason For Referral No Information Plan Of Treatment No Information
[2025-05-10 08:22] VITALS: BP 148/75; PULSE 72; TEMP 37.4; O2SAT 94
[2025-05-10 08:59] VITALS: BP 147/73; BP 154/74; PULSE 75; PULSE 80; O2SAT 94; O2SAT 98
[2025-05-10] MEDS: BUPIVACAINE HCL 0.25% PF 25 MG/10 ML VIAL 2 ML INJ (09:00)
[2025-05-10] MEDS: LIDOCAINE HCL 2% 400 MG/20 ML MDV INJ (09:00)
[2025-05-10] MEDS: IOHEXOL 240 MG/ML - 10 ML VIAL 24 MG IV (09:00)
[2025-05-10] MEDS: 0.9 % SODIUM CHLORIDE 10 ML SYRINGE - SALINE FLUSH 7 ML INJ (09:00)
[2025-05-10] MEDS: METHYLPREDNISOLONE ACETATE 80 MG/ML VIAL INJ (09:01)
--- NOTE | 2025-05-10 09:04 | W.PM.PROCNOT ---
Date of procedure: 05/10/25 Pre-op diagnosis: Pain due to lumbar stenosis with neurogenic claudication, M96.1 Post-op diagnosis: same as pre-op Procedure: Procedure: Caudal epidural steroid injection Medications: Bupivacaine 0.25% 4cc, normal saline 0.9% 4cc, depomedrol 80mg After informed consent was obtained, the patient was brought to the medical procedure unit and placed in the prone position.? A timeout was completed identifying correct patient, procedure, site, positioning, and special equipment.? The skin overlying the area was prepped and draped in standard sterile fashion using alcohol, after which a 25-gauge needle was used to raise a skin wheal over the sacral hiatus identified under fluoroscopy.? Subsequently a 17-gauge Tuohy needle was inserted through anesthetized area and directed toward the sacral hiatus under fluoroscopic guidance.? After piercing the sacrococcygeal membrane, needle tip placement was confirmed by injection of Omnipaque dye.? Then 10 mL of steroid solution was instilled.? Postoperatively, needles were removed and the catheter was removed with the tip intact.? The patient was transferred to the recovery area in stable condition to be discharged after meeting criteria. Anesthesia: Local Surgeon: Rebecca Zavala Pathology: none sent Condition: stable Disposition: no change
== END 2025-05-10 09:11 | disposition home or self-care (01) ==
PROVIDERS: PCP Family Medicine; Visit Provider Anesthesiology
DX: M48.062 Spinal stenosis, lumbar region with neurogenic claudication (principal); M96.1 Postlaminectomy syndrome, not elsewhere classified; G89.29 Other chronic pain; E11.8 Type 2 diabetes mellitus with unspecified complications; Z79.84 Long term (current) use of oral hypoglycemic drugs
CPT/HCPCS: 36415; 62323; 82948; J0665; J1010; Q9966

== ENCOUNTER 2025-05-20 08:56 | Outpatient (OUT) | payer MEDICARE, OTHER, SELFPAY ==
--- NOTE | 2025-05-20 09:12 | PM.CN ---
Consult Note: HPI Data of Consult Patient: known to practice within the last 3 years Consult date: 05/20/25 Requesting Physician: Audrey Angel NP Primary Care Provider: LEVAR MOLINA Consult Narrative Reason for consult: low back and BLE pain Narrative: Tito Guillen a pleasant 69 year old male with chronic bilateral knee, bilateral hip, and chronic moderate to severe low back pain post lumbar surgery. pt currently utilizing tylenol, prednisone, gabapentin, meloxicam, and thc gummies without improvement. notes mild relief with baclofen 10mg bid prn, denies side effects. recently underwent caudal JENNI and is noting significant improvement in BLE pain. Patient is noting increasing bilateral knee pain and SIJ pain, interested in discussing treatment options. pain today aching 6/10 in bilateral SIJ and bilateral knees. denies falls/injury. pain increasing with standing, walking, twisting, stairs, activity. notes improvement with sitting and prn ice. cc:: CC: Audrey Angel NP Review of Systems ROS Musculoskeletal Reports: back pain and joint pain PFSH PFSH Medical History Cervical vertebral fusion ?M43.22 - Fusion of spine, cervical region (ICD-10) Psoriatic arthritis ?L40.50 - Arthropathic psoriasis, unspecified (ICD-10) Cirrhosis of liver ?K74.60 - Unspecified cirrhosis of liver (ICD-10) Sleep apnea ?G47.30 - Sleep apnea, unspecified (ICD-10) High cholesterol ?E78.00 - Pure hypercholesterolemia, unspecified (ICD-10) HTN (hypertension) ?I10 - Essential (primary) hypertension (ICD-10) Diabetes ?E11.9 - Type 2 diabetes mellitus without complications (ICD-10) Surgical History History of cystoscopy ?Z98.890 - Other specified postprocedural states (ICD-10) History of reverse total replacement of shoulder joint ?Z96.619 - Presence of unspecified artificial shoulder joint (ICD-10) History of hydrocelectomy ?Z98.890 - Other specified postprocedural states (ICD-10) Status post insertion of spinal cord stimulator ?Z96.89 - Presence of other specified functional implants (ICD-10) History of cataract removal with insertion of prosthetic lens ?Z98.49 - Cataract extraction status, unspecified eye (ICD-10) ?Z96.1 - Presence of intraocular lens (ICD-10) History of cervical discectomy ?Z98.890 - Other specified postprocedural states (ICD-10) History of lumbar fusion ?Z98.1 - Arthrodesis status (ICD-10) History of lumbar laminectomy ?Z98.890 - Other specified postprocedural states (ICD-10) Hx of tonsillectomy ?Z90.89 - Acquired absence of other organs (ICD-10) History of nasal septoplasty ?Z98.890 - Other specified postprocedural states (ICD-10) History of carpal tunnel release ?Z98.890 - Other specified postprocedural states (ICD-10) Meds Home Medications and Allergies Home Medications ?Medication ?Instructions ?Recorded ?Confirmed ?Type acetaminophen 500 mg tablet 1,000 mg PO BID PRN pain 12/09/24 05/10/25 History (Acetaminophen Extra Strength) atenolol 100 mg tablet 100 mg PO DAILY 12/09/24 05/10/25 History calcium phosphate,dibasic 77 tab PO 12/09/24 History mg-vitamin D3 400 unit tablet citalopram 40 mg tablet (Celexa) 40 mg PO DAILY 12/09/24 05/10/25 History diclofenac sodium 1 % topical gel 2 g topical QID 12/09/24 05/10/25 History (Voltaren Arthritis Pain) docusate sodium 100 mg capsule 200 mg PO DAILY 12/09/24 05/10/25 History (Colace) furosemide 20 mg tablet (Lasix) 20 mg PO DAILY 12/09/24 05/10/25 History gabapentin 600 mg tablet 600 mg PO BID 12/09/24 05/10/25 History golimumab 12.5 mg/mL intravenous IV 12/09/24 History solution (Simponi ARIA) levothyroxine 50 mcg tablet 50 mcg PO DAILY 12/09/24 05/10/25 History (Synthroid) lisinopril 20 mg tablet 20 mg PO DAILY 12/09/24 05/10/25 History meloxicam 7.5 mg tablet 7.5 mg PO DAILY 12/09/24 05/10/25 History metformin 1,000 mg tablet 1,000 mg PO BID 12/09/24 05/10/25 History multivitamin 1 tab PO DAILY 12/09/24 05/10/25 History pantoprazole 20 mg tablet,delayed 20 mg PO DAILY 12/09/24 05/10/25 History release pravastatin 10 mg tablet 10 mg PO DAILY 12/09/24 05/10/25 History prednisone 5 mg tablet 5 mg PO DAILY PRN pain 12/09/24 05/10/25 History spironolactone 25 1 tab PO DAILY 12/09/24 05/10/25 History mg-hydrochlorothiazide 25 mg tablet sulfasalazine 500 mg tablet 1,000 mg PO BID 12/09/24 05/10/25 History tamsulosin 0.4 mg capsule (Flomax) 0.4 mg PO DAILY 12/09/24 05/10/25 History baclofen 10 mg tablet See Rx Instructions .Route 12/23/24 05/10/25 Rx .COMPLEX #60 tabs baclofen 10 mg tablet 10 mg PO BID PRN muscle spasm #60 04/28/25 05/10/25 Rx tabs Allergies Allergy/AdvReac Type Severity Reaction Status Date / Time paroxetine Allergy Mild Rash Verified 05/10/25 08:23 Exam Constitutional Documenting provider has reviewed patient's vital signs: yes Common normals: no apparent distress, oriented x3 and alert General appearance: cooperative HENMT Common normals: normocephalic, hearing grossly normal bilaterally and moist oral mucous membranes Head and scalp: normocephalic Eye Common normals: PERRL Pupil: PERRL Neck & C-Spine Common normals: full ROM General: normal visual inspection Chest Common normals: inspection of chest normal Respiratory Common normals: normal respiratory effort, no retractions and no use of accessory muscles Back & Pelvis Lumbar spine/lower back: pain with ROM, lumbar spinal tenderness and straight leg raise negative bilaterally Other: sensation intact BLE stregnth 5/5 in BLE positive facet loading L2-4 Extremity Right lower extremity: knee joint Left lower extremity: knee joint Other: mild crepitus to bilateral knees, mild edema to bilateral knees. increasing pain with medial/lateral stress testing without instability Neuro Common normals: oriented x3 Sensorium/orientation: alert Psych Common normals: mental status grossly normal, thought process normal, cooperative, affect normal, speech normal and activity/motor behavior normal Speech: normal speech Thought process: normal thought process Results Additional Findings Additional findings: If on a controlled substance or opioids, I have checked an [place]AR[place] report on this patient and there are no aberrancies noted in the prescribing history.??If on a controlled substance or opioid a drug screen was completed and reviewed within the last year, and if there has not been a drug screen completed we ordered one today to monitor higher risk, state monitored pain medication use. As part of providing excellent, safe, comprehensive care, the following was completed at our patient's visit: 1. A medication reconciliation and review to ensure accurate knowledge of current/active medications, including asking our patients to inform us about any qnaq-xcu-innuxsr medications or herbal remedies/nutritional supplements/alternative remedies. 2. A review to specifically ensure our patients have had annual screening for screening for depression, screening for tobacco use, and screening for unhealthy alcohol use. For concerning screenings had a discussion with the patient, provided patient education, and recommended follow-up with primary care provider when appropriate. If patient noted with a risk of falling, they received education on strength, gait, and balance training to prevent future risk of falling. Portions of this note may have been carried over from the previous visit and updated as appropriate. Please note this office utilizes paper charting in addition to the electronic medical record. A list of current medications, vitals, and PMH is available there as the clinical staff outside of myself do not have access to [facility] charting during the clinic day operations. As part of providing quality comprehensive care the current medications, vitals, and PMH were reviewed in the paper chart. Assessment and Plan Assessment and Plan (1) Sacroiliitis: (2) Bilateral knee pain: Qualifiers: Chronicity: chronic Qualified Code(s): M25.561 - Pain in right knee; M25.562 - Pain in left knee; G89.29 - Other chronic pain (3) Bilateral primary osteoarthritis of knee: (4) Failed back syndrome: (5) Lumbar radiculopathy: Assessment and Plan: 05/20/25 caudal JENNI >50% improvement ongoing (6) Myalgia, other site: Plan The patient has had over 3 months of moderate to severe low back, bilateral SIJ, bilateral knee pain with functional impairment and inadequate response to conservative care including NSAIDS (unless there are contraindication such as concurrent blood thinners), multiple oral or topical pain medications, and home exercise program/physical therapy.? Patient has completed >6 weeks of guided home exercise program and/or formal physical therapy program without relief of their symptoms.? I have reviewed the imaging of the lumbar spine and no red flags were identified.? The Oswestry Disability Index was completed, and the patient scored a 20%.? proceed with bilateral SIJ injection under fluoroscopy, prior left SIJ injection provided at least 50% improvement greater than 3 months proceed with bilateral knee injection with Dr Zavala for bilateral knee pain/oa, non surgical due to age and minimal OA continue baclofen 10mg bid prn pain/spasms continue gabapentin through PCP consider bilateral L2-3 L3-4 mbb x2 in consideration of rfa for facet mediated pain in the future
== END 2025-05-20 08:57 | disposition home or self-care (01) ==
LOC: PM 08:56
PROVIDERS: PCP Family Medicine; Visit Provider Nurse Practitioner
DX: M46.1 Sacroiliitis, not elsewhere classified (principal); M25.561 Pain in right knee; M25.562 Pain in left knee; G89.29 Other chronic pain; M17.0 Bilateral primary osteoarthritis of knee; M96.1 Postlaminectomy syndrome, not elsewhere classified; M54.16 Radiculopathy, lumbar region; M79.18 Myalgia, other site
CPT/HCPCS: G0463

== ENCOUNTER 2025-06-07 06:47 | Day surgery (SDC) | payer MEDICARE, OTHER, SELFPAY ==
--- OUTSIDE RECORDS SUMMARY | 2025-06-07 06:52 | XMS_ITS | Encounter Summary ---
Author Organization [facility] tem Address [id number] [address] [place] [address] Care Team Providers Care Stockroom Selector Name Role Phone Willy Conteh MD Primary Care Provider [phone] Reason for Visit * ReasonOnset DateCommentsMed Ldifll7705/27/2025 Encounter Details DateTypeDepartmentCare Team (Latest Contact Info)Xgaedhamyaz38/17/2025Refill [facility] [address] [place] [phone] Willy Conteh MD [address] [place], [place] [phone] Cervical radiculopathy Social History Tobacco UseTypesPacks/DayYears UsedDateSmoking [...] you get together with friends or relatives?Patient diecggcy20/01/2021How often do you attend shinto or islam services?More than 4 times per year1Do you belong to any clubs or organizations such as shinto groups, unions, fraternal or athletic iwona ups, or school groups?Yes05/10/2021How often do you attend meetings of the clubs or organizations you belong to?More than 4 times per year05/10/2021re you , , , , never , or living with a partner? Znbugyd8205/10/2021Overall Financial Resource Strain (CARDIA)AnswerDate Recorded How hard is it for you to pay for the very basics like food, housing, medical care, and heating?Not hard at all11/22/2024PHQ-2AnswerDate RecordedTotal Score0 02/24/2025Fincentral [facility] medical [facility] [place] of Occupational Health - Occupational Stress QuestionnaireAnswerDate RecordedDo you feel stress - tense, restless, nervous, or anxious, or unable to sleep at night because yourmind is troubled all the time - these days?Only a rsnimj6605/10/2021xercise Vital SignAnswerDate Recorded On average, how many days per week do you engage in moderate to strenuous exercise (like a brisk walk)?0 days05/10/2021On average, how many minutes do you engage in exercise at this level?0 min05/10/2021RAPARE - TransportationAnswer Date RecordedIn the past 12 months, has lack of transportation kept you from medical appointments or from getting medications?No11/22/2024In the past 12 months, has lack of transportation kept you from meetings, work, or from getting things needed for daily living?No11/22/2024UDIT-CAnswerDate RecordedQ1: How often do you have a drink containing alcohol?Never05/14/2025Q2: How many drinks containing alcohol do you have on a typical day when you are drinking?Patient does not drink05/14/2025Q3: How often do you have six or more drinks on one occasion?Never05/14/2025Housing InstabilityAnswerDate RecordedAre you worried or concerned that in the next two months you may not have stable housing that you own, rent or stay in as a part of a household?No11/22/2024hildcareAnswerDate RecordedDo problems getting child protective services social worker make it difficult for you to work or study?No05/10/2021mploymentAnswerDate RecordedDo you need help finding a local career center and/or a training program?No05/10/2021Hunger ScreeningAnswerDate RecordedWithin the past 12 months we worried whether our food would run out before we got money to buy more.Never True05/14/2025Within the past 12 months the food we bought just didn't last and we didn't have money to get more.Never True05/14/2025Purpose - LifeAnswerDate RecordedI have a purpose and direction in my life.Agree05/10/2021ducationAnswerDate RecordedWhat is the highest level of school you have completed or the highest degree you have received?12th grade 05/10/2021ex and Gender InformationValueDate RecordedSex Assigned at BirthNot on fileLegal MoeRpfa3301/13/2015 11:36 AM EDTGender IdentityNot on fileSexual OrientationNot on filedocumented as of this encounter Plan of Treatment DateTypeDepartmentCare Team (Latest Contact Info)Zgzlcleiipq62/17/2026 1:00 PM EDTOffice Visit [facility] [address] [place] [phone] Willy Conteh MD [address] [place] [phone] 08/30/2025 2:15 PM EDTOffice Visit [facility] [address] [place] [address] [place] [address] [place] [address] Adi Narvaez MD [address] [place] [phone] 11/24/2025 10:00 AM EDTOffice Visit [facility] [address] [place] [phone] Willy Conteh MD [address] [place] [address] [phone] documented as of this encounter Visit Diagnoses Diagnosis Cervical radiculopathy Brachial neuritis or radiculitis nos documented in this encounter Additional Health Concerns AssessmentNoted TimePHQ-9 Depression Total Score: 11:04 AM EDTA Body Mass Index follow-up plan has been documented for the ggtgzeu6412/21/2024 12:31 PM EDTdocumented as of this encounter Care Teams Team MemberRelationshipSpecialtyStart DateEnd Date Willy Conteh MD [address] [place] [address] PCP - GeneralInternal Medicine10/05/24documented as of this encounter
--- OUTSIDE RECORDS SUMMARY | 2025-06-07 06:52 | XMS_ITS | Clinical Summary ---
Author Organization [facility] Address [address] [place] [address] Care Team Providers Care Federal Air Marshal Name Role Phone David Bolden Primary Care Provider [phone] Allergies No known active allergies Medications MedicationSigDispense [...] Problems ProblemNoted DateDiagnosed DateCirrhosis of liver without bpbwrem5304/24/2017 Encounters DateTypeDepartmentCare ZmhpAweofaulzqv90/03/2025Telephone [facility] [address] [place] [address] [place] [address] Guru Rea MD Results (Colonoscopy/EGD)04/14/2025Telephone [facility] [address] [place] [address] Guru Rea MD Appointment (Due for [place] [...] number is lower riskNot on file05/17/2020Data from: https://www.neighborhoodatlas.medicine.[facility].edu/. Last address used for calculationNot on file05/17/2020Sex and Gender InformationValueDate RecordedSex Assigned at BirthNot on fileLegal GcnQfzd6810/18/2014 9:38 PM EDTGender Identity Not on fileSexual OrientationNot on file Last Filed Vital Signs Vital SignReadingTime TakenCommentsBlood Rzgcvvyd165/8204/25/2018 9:22 AM EST Fwogx057704/25/2018 9:22 AM VNKEkkgjeekctd90.7 ??C (98.1 ??F)04/25/2018 9:22 AM ESTRespiratory Rate--Oxygen Iyqsvvxhbl18%04/25/2018 9:22 AM ESTInhaled Oxygen Concentration--Hgcsqv011.6 kg (268 lb)04/25/2018 9:22 AM ZSCYxhxmg226.9 cm (6') 04/25/2018 9:22 AM ESTBody Mass Index36.35106/25/2017 9:22 AM EST Plan of Treatment Health MaintenanceDue DateLast DoneCommentsAbdominal Aortic Aneurysm Screening 5Anxiety Njbukgjqm37/03/1973Depression Kdspttjbv37/03/1973Pneumococcal Vaccine: 50+ (1 of 2 - PCV)1973Shingrix Vaccine (1 of 2)1973CT Uurejavqgpig41/03/2000Cologuard (FIT-DNA)08/11/1999Fecal Occult Blood08/11/1999 Iywtqmwtfuucp23/03/2000RSV Vaccine (1 - Risk 50-74 years 1-dose series) 2004Hepatitis B Vaccine (1 of 3 - Risk 3-dose series)2014Medicare Annual Wellness Visit02/08/20192798Bwyazuxgxyv11Colorectal Cancer Xmrvutidz74/26/2021DTaP,Tdap,Td Vaccine (2 - Td or Tdap)/ Advance Directive Rbrwrbceaa47/01/2025Covid-19 Vaccine ( season) , 04/27/2021, 09/05/2020, Additional history existsInfluenza Vaccine (#1)/, 04/23/2022, 06/05/2021, Additional history existsDiabetes Brbmaisqe74, 03/23/2024, 03/23/2024, Additional history existsLipid Dxnpsjjtp35, 03/23/2024, 11/21/2022, Additional history existsHepatitis C XeedicsfoFkupeavzc90/10/2015 Procedures Procedure NamePriorityDate/TimeAssociated DiagnosisCommentsEXTERNAL LAB 05/12/2025 9:26 AM EST EXTERNAL RMOCPPSQR31/03/2025 9:25 AM EST EXTERNAL XFKRVKXQF83/03/2025 9:25 AM EST HEMOGLOBIN R4DQghtmzp75/20/2023 1:09 PM EDT Diabetes mellitus without complication (HCC) Preop examination HEP REMOTE PANEL ASRhysupo55/10/2015 2:43 PM EDT Chronic liver disease Fatty liver from Last 3 Months or Most Recently Relevant to Health Maintenance Results * EXTERNAL LAB (05/12/2025 9:26 AM EST) Narrative Authorizing ProviderResult TypeResult StatusExternal Provider PA-CLABORATORY Final Result * EXTERNAL PROCEDURE (05/12/2025 9:25 AM EST) Narrative Authorizing ProviderResult TypeResult StatusExternal Provider PA-CPROCEDUREFinal Result * EXTERNAL PROCEDURE (05/12/2025 9:25 AM EST) Narrative Authorizing ProviderResult TypeResult StatusExternal Provider PA-CPROCEDUREFinal Result * HEP REMOTE PANEL BL (12/17/2014 2:43 PM EDT)ComponentValueRef RangeTest Method Analysis TimePerformed AtPathologist SignatureHep B Core Ab, TotalNegative Cpcohwrk09/10/2015 9:39 PM EDTCLEVEL[facility]IN[facility]IN LABORATORYHep C Antibody LNKxltjefdJxiqtfth48/10/2015 9:39 PM EDTCLEVELAND CLINIC MAIN LABORATORYHBsAg FwpqbuhuYmdadvbr52/10/2015 9:39 PM EDTCLEVELAND CLINIC MAIN LABORATORYHep B Surface Ab, DdpdLkosugqwPxrpdpee41/10/2015 9:40 PM EDTCLEVELAND CLINIC MAIN LABORATORYComment:NEGATIVESpecimen (Source)Anatomical Location / Laterality Collection Method / VolumeCollection TimeReceived TimeBlood specimen (specimen)BLOOD SPECIMEN / Fwmjxmd9212/17/2014 2:43 PM EDT12/17/2014 2:45 PM EDT Narrative Authorizing ProviderResult TypeResult StatusGuru Rea MDLABORATORYFinal Result Performing OrganizationAddressCity/State/ZIP CodePhone Number [facility] [address] [place] [address] from Last 3 Months or Most Recently Relevant to Health Maintenance Insurance Care Teams Team MemberRelationshipSpecialtyStart DateEnd Date David Bolden PCP - GeneralFamily Medicine10/18/14
--- OUTSIDE RECORDS SUMMARY | 2025-06-07 06:52 | XMS_ITS | Encounter Summary ---
Author Organization [facility] Address [facility] [place] [address] Care Team Providers Care Second Grade Teacher Name Role Phone BodlenDavid Ronny Primary Care Provider [phone] Source Comments In the event this information is protected by the Federal Confidentiality of Alcohol and Drug AbusePatient Records regulations: The Federal rules restrict any use of the information to criminally investigate or prosecute any alcohol or drug abuse patient.[facility] Reason for Visit * ReasonCommentsResultsColonoscopy/EGD Encounter Details DateTypeDepartmentCare Team (Latest Contact Info)Usykyfjwbca68/03/2025Telephone [facility] Gastroenterology [facility] [address] [facility] [address] [address] Guru Rea MD [address] [place] [address] Results (Colonoscopy/EGD) Social History Tobacco UseTypesPacks/DayYears UsedDateSmoking Tobacco: Every DayCigarsSmokeless Tobacco: Never Comments:Cigar occasionally Alcohol UseStandard Drinks/WeekCommentsYes0 (1 standard drink = 0.6 oz pure alcohol)rarelyArea Deprivation IndexAnswerDate RecordedNational Score (1-100), lower number is lower riskNot on file05/17/2020State Score (1-10), lower number is lower riskNot on file05/17/2020Data from: https://www.neighborhoodatlas.[facility]/. Last address used for calculationNot on file05/17/2020Sex and Gender InformationValueDate RecordedSex Assigned at BirthNot on fileLegal OzxFyly1310/18/2014 9:38 PM EDTGender Identity Not on fileSexual OrientationNot on filedocumented as of this encounter Miscellaneous Notes * Telephone Encounter - October Chitra Abarca - 05/31/2025 3:13 PM EST I called patient and left message that he will need to check with the physician who performed his test. Chitra Chua * Telephone Encounter - Guru Rea MD - 05/28/2025 3:40 PM EST Please recommend patient ask Dr Lewis the endoscopist who did procedures about pathology report and what screening interval Dr Lewis would recommend. Thanks Guru Rea * Telephone Encounter - Sudhakar Sandoval - 05/28/2025 3:24 PM EST Pt would like to know whether you advise a 3-yr or 5-yr recall based on the pathology. Thanks. Sudhakar Sandoval * Telephone Encounter - Guru Rea MD - 05/16/2025 1:25 PM EST Reports reviewed * Telephone Encounter - October Chitra Abarca - 05/12/2025 11:29 AM EST Patient had his colonoscopy/EGD locally at [facility], results are scanned for review. Chitra Hackett Aircraft Seat Upholsterer documented in this encounter Plan of Treatment Not on file documented as of this encounter Visit Diagnoses Not on filedocumented in this encounter Care Teams Team MemberRelationshipSpecialtyStart DateEnd Date David Bolden PCP - GeneralFamily Medicine10/18/14documented as of this encounter
--- OUTSIDE RECORDS SUMMARY | 2025-06-07 06:52 | XMS_ITS | Clinical Summary ---
Author Organization [facility] Address [address] [facility] [place] [address] Care Team Providers Care Fourdrinier Wire Weaver Name Role Phone Unavailable Primary Care Provider Unavailabl e Source Comments The following information is NOT included in Care Everywhere downloads:Psychiatric notes, ECG results, Cardiac Rehab notes, Pulmonary Function notes, data from SmartForms (includes but not limited toPregnancy data,audiograms, eye exams, pre-surgical evaluation notes, well-child exam data).[facility] Allergies No known active allergies Medications [...] mouth 2 times daily (with meals).Active Cholecalciferol 68624 UNITS CAPS Take by mouth.Active MAGNESIUM GLYCINATE PLUS ORAL Take 200 mg by mouth.Active acetaminophen-codeine (TYLENOL #3) 300-30 MG per tablet Take 1 Tablet by mouth every 4 hours as needed for Pain. 40 Tablet 108/01/2016Active InFLIXimab (REMICADE IV) Indications:Psoriatic arthritis (HCC),Osteochondroma of forearm, rightInject intravenously. Every 6 weeksActive Active Problems ProblemNoted DateDiagnosed DateCarpal tunnel syndrome of right wrist11/09/2015 Psoriatic eoeplfzfb35/17/2014iceps rupture, qxcwkq4006/26/2013 Social History Tobacco UseTypesPacks/DayYears UsedDateSmoking Tobacco: FormerSmokeless Tobacco: NeverAlcohol UseStandard Drinks/WeekCommentsNo0 (1 standard drink = 0.6 oz pure alcohol)Substance UseTypesUse/WeekCommentsNoSex and Gender InformationValueDate RecordedSex Assigned at BirthNot on fileLegal GqtItyb27/10/2013 10:22 AM EST Gender IdentityNot on fileSexual OrientationNot on file Last Filed Vital Signs Vital SignReadingTime TakenCommentsBlood Yfwtuxvj025/7708 8:15 AM EDT Mdifv9386/01/2016 8:15 AM UTOHweuawpfcoe07.9 ??C (98.4 ??F)01/09/2016 8:10 AM EDTRespiratory Xcuf380001/09/2016 8:15 AM EDTOxygen Mkhwvkbxpq38%01/09/2016 8:15 AM EDTInhaled Oxygen Concentration--Weight--Height--Body Mass Index-- Plan of Treatment Health MaintenanceDue DateLast YjgfMfldvgksJxgxouwggjx93/03/1956Hepatitis C Vityqklw62/03/1973Tdap Qkdbdoy1608/10/1972Hepatitis A (HAV) Vaccine (optional start 19+ years)08/10/19732202Jseppjeocuy90/03/1990CRC Gaxikovgn45/03/2000Cologuard (Stool DNA)08/11/1999FIT08/11/1999Pneumococcal Vaccine(s) (50+ yrs) (1 of 1 - PCV)2004Shingles (RZV) Vaccine (1 of 2)2004Hepatitis B (HBV) Vaccine (optional start 60+ years)2014bdominal Aortic Aneurysm Cxgqzaq6208/11/2019 COVID-19 Vaccine (1 - 2024- season)2025Influenza Vaccine (#1)2025 RSV vaccine (adult) (1 - 1-dose 75+ series)2029 Insurance
--- OUTSIDE RECORDS SUMMARY | 2025-06-07 06:52 | XMS_ITS | Clinical Summary ---
Author Organization [employer] Address [facility] [address] [place] [address] Care Team Providers Care Hide Tanner Name Role Phone Willy Conteh MD Primary Care Provider [phone] Allergies Active AllergyReactionsCriticalityNoted MdeeEwvlsrimTnqnpwtslc80/06/2017 Unsure of reaction, pt states was years ago Medications MedicationSigDispense QuantityRefillsLast FilledStart DateEnd DateStatus diclofenac sodium (VOLTAREN) 1 % gel 01/15/2020Active golimumab (SIMPONI ARIA IV) Infuse 250 mL into a venous catheter. Patient received 250ml for 1st dose Will receive 2nd dose august 29 2022, And then receiving every dose [facility] sulfaSALAzine (AZULFIDINE) 500 mg tablet Take [...] Units total) by mouth in the morning.Active fmwafrcj-mddl-JH-calcium &mins (THERAGRAN-M) 9 mg iron-400 mcg tablet [...] mouth in the morning. 90 tablet 5Active furosemide (LASIX) 20 mg tablet Take 1 tablet (20 mg total) by mouth daily. 90 tablet 5Active meloxicam (MOBIC) 7.5 mg tablet Take 1 tablet (7.5 mg total) by mouth every other day.Active atorvastatin (LIPITOR) 40 mg tablet Take 1 tablet (40 mg total) by mouth in the morning. 90 tablet 5Active gabapentin (NEURONTIN) 600 mg tablet Indications:Cervical radiculopathyTake one tablet by mouth two times a day 60 tablet 5Active pravastatin (PRAVACHOL) 10 mg tablet Take 1 tablet (10 mg total) by mouth in the morning. TAKE 1 TABLET(10 MG) BY MOUTH IN THE MORNING. 90 tablet 512/10/2024Discontinued gabapentin (NEURONTIN) 600 mg tablet Indications:Cervical radiculopathyTake one tablet by mouth two times a day 60 tablet /Discontinued(Reorder) Active Problems ProblemNoted DateDiagnosed DateUrge incontinence of urine04/17/2024Increased prostate specific antigen (PSA) evfptvmy79/28/2024 Overview (09/09/2024): ==== 09/09/2024 ==== PSA improved to 2.72 will monitor serially. ==== 04/06/2024 ==== PSA year ago was about 2.07. Current PSA 3.4. Urologic ygmmwacg66/28/2024 Overview (02/01/2025): ==== 02/01/2025 ==== some benefit ==== 09/09/2024 ==== still present. Will change him over to nystatin. He understands to contact a PCPfor any further evaluation management. ==== 04/06/2024 ==== complaints of some jock itch. Some scrotal swelling. Does have a small isolated the pimple in the right lateral aspect of the scrotum. Will treat with doxycycline. Also Lotrimin. Urine qsueiopov84/31/2024 Overview (02/01/2025): ==== 02/01/2025 ==== now on [...] deferred Rotator cuff tear arthropathy of left vatnbnmm05/14/2023Occipital neuralgia of right side10/02/2022 Overview (10/02/2022): Added automatically from request for surgery [id number] Cervical spondylosis without myyggqnpss10/24/2023Stenosis of cervical spine 07/03/2022Localized osteoarthritis of left qevuqryw28/24/2023ervical yushtlsunvkrd56/24/2023 Overview (07/03/2022): Added automatically from request for surgery [id number] Adenomatous polyp of ascending colon12/15/2019Adenomatous polyp of transverse colon12/15/2019Right oquwuzofj38/04/2020Left fzbgnamkgkgk49/04/2020Severe obesity (BMI 35.0-39.9) with tfnvkmwwast39/31/2019Right upper quadrant abdominal pain04/10/2018Gall bladder shtgjid7904/07/2018Diabetes mellitus without phmxtfeyaelv65/15/2018Essential hypertension, czwzei65/15/2018Gastroesophageal reflux disease without /15/2018Cirrhosis of liver without ascites 04/24/2017Partial recent retinal detachment with single cnkdbs3605/24/2014Vitreous roogwdxdkxve78/15/2014Psoriatic irllbrntj55/17/2014 Encounters DateTypeDepartmentCare UforLvkabnrvdft42/17/2025Refill [facility] [address] [place] [address] Willy Conteh MD Cervical ozeflpmsipsbl51/05/2025 10:30 AM ESTOffice Visit [facility] [address] [facility] [address] [place] [phone] Ray Leung MD Pappas, Thomas M, MD Essential hypertension, benign (Primary Dx)05/13/20256766Nglhmq17/04/2025bstract [facility] [address] [facility] [address] [place] [phone] Ronny Horton MD 05/10/2025Orders Only [facility] [address] [place] [address] Birgit Johnson, [facility] 05/05/2025Orders Only [facility] [address] [place] [address] Ref Prov, Not In System 04/26/2025Refill [facility] [address] [place] [address] Willy Conteh MD Cervical baqkajdkhgrsy20/30/2025Results Follow-Up [facility] [address] [place] [address] Willy Conteh MD CBC auto differential, Comprehensive metabolic panel, Lipid profile, TSH 04/07/20251057Shcqpg10/26/2025Refill [facility] [address] [place] [phone] Willy Conteh MD 03/12/2025Refill [facility] [address] [place] [phone] Willy Conteh MD Cervical fbzrhwurrowxp49/02/2025 11:00 AM EDTOffice Visit [facility] [address] [place] [phone] Corry Dexter, MARBLEIZING MACHINE TENDER-WASHER HAND Tubular adenoma (Primary Dx); Non-alcoholic cirrhosis (CMS-HCC); Special screening for malignant neoplasm of colon03/10/2025Travelfrom Last 3 Months Immunizations ImmunizationAdministration DatesNext DueCOVID-19, mRNA, LNP-S, PF, 100mcg/0.5mL Dose09/05/2020,08/05/2020Influenza Vaccine, Quadrivalent, Agnxuorrtz55/02/2020 Influenza Whole04/24/2010Influenza, High-dose, Xltbywizcghh66/14/2022Influenza, Im Trivalent Nmdlnthdaxbe51/26/2015Influenza, Injectable, Drgfvmpcoyws38/21/2019 ,04/09/2017,04/12/2014Influenza, Injectable, quadrivalent (PF)06/05/2021, 03/19/2018Influenza, Eukkmrgzbxm50/15/2022,03/11/2020Tdap11/27/2013 Family History Medical HistoryRelationNameCommentsNo Known ProblemsDaughter 1No [...] you get together with friends or relatives?Patient thqlhygt51/01/2021How often do you attend rastafarian or jehovah's witness services?More than 4 times per year05/10/2021o you belong to any clubs or organizations such as rastafarian groups, unions, fraternal or athletic iwona ups, or school groups?Yes05/10/2021How often do you attend meetings of the clubs or organizations you belong to?More than 4 times per year05/10/2021re you , , , , never , or living with a partner? Koqjswt1305/10/2021Overall Financial Resource Strain (CARDIA)AnswerDate Recorded How hard is it for you to pay for the very basics like food, housing, medical care, and heating?Not hard at all11/22/2024PHQ-2AnswerDate RecordedTotal Score0 02/24/2025[facility] [place] [facility] - Occupational Stress QuestionnaireAnswerDate RecordedDo you feel stress - tense, restless, nervous, or anxious, or unable to sleep at night because yourmind is troubled all the time - these days?Only a ybodwr1905/10/2021xercise Vital SignAnswerDate Recorded On average, how many [...] part of a household?No11/22/2024hildcareAnswerDate RecordedDo problems getting exceptional children teacher assistant make it difficult for you to work [...] InformationValueDate RecordedSex Assigned at BirthNot on fileLegal IsbLkyp6001/13/2015 11:36 AM EDTGender IdentityNot on fileSexual OrientationNot on file Last Filed Vital Signs Vital SignReadingTime TakenCommentsBlood Ojsqqith604/6405/14/2025 10:30 AM EST Zpmal355605/14/2025 10:30 AM SHLTgmcxmmzdti41.7 ??C (98 ??F)10/20/2024 7:45 AM EDT Respiratory Dffs897202/24/2025 11:01 AM EDTOxygen Samcylcluq34%05/14/2025 10:30 AM ESTInhaled Oxygen Concentration--Dfcvnp936.5 kg (270 lb)05/14/2025 10:30 AM EST Hldwvk905.3 cm (5' 9 )05/14/2025 10:30 AM ESTBody Mass Index39.8705/14/2025 10:30 AM EST Plan of Treatment DateTypeDepartmentCare Team (Latest Contact Info)Zukffjxagmv71/17/2026 1:00 PM EDTOffice Visit [facility] [address] [place] [phone] Willy Conteh MD [address] [place] [phone] 08/30/2025 2:15 PM EDTOffice Visit [facility] [address] [place] [address] [facility] [place] [phone] Adi Narvaez MD [facility] [place] [address] 11/24/2025 10:00 AM EDTOffice Visit [facility] [address] [place] [phone] Willy Conteh MD [address] [place] [phone] Health MaintenanceDue DateLast DoneCommentsTobacco Lgdvpmqbdn97/03/1956Zoster (Shingles) Vaccine (1 of 2)1973RSV ( or age 60+ yrs) (1 - Risk 50- 74 years 1-dose series)08/10/20040658Hnutbavtbst05, 04/30/2008, 04/30/2008, Additional history existsDTaP,Tdap and Td Vaccines (2 - Td or Tdap) /COVID-19 Vaccine (5 - 2024- season), 04/27/2021, 09/05/2020, Additional history existsDiabetic Ophthalmology Exam , 10/12/2022, 10/12/2022, Additional history existsFall Risk Mwhhefvlj29/Diabetic Foot Exam/, 11/13/2021, 05/04/2019, Additional history existsMedicare Annual Wellness Visit11/23/2025 11/23/2024, 11/21/2023, 11/19/2022, Additional history existsAdult BMI Follow Up Plan/Depression Qkruxcfhy14/dult BMI Krzqxwphq45/10/2024Tobacco Vngygiwmi14/bdominal Aortic Aneurysm (AAA) BotwukKbwopmcek23/06/2024Influenza VaccineCompleted 04/05/2025, 04/24/2022, 04/23/2022, Additional history exists Medical Devices ImplantedTypeAreaManufacturerDevice IdentifierShelf Expiration DateModel / Serial / LotLens Iol Ultrasert 19.0d - [id number] - [id number] Implanted:Qty: 1 on 12/25/2018 by Nelda Leonardo MD at [facility]: [employer]03/09/2021AU00T0 19.0 / [id number] / NALens Iol Sy60wf.190 [place] Rpl [id number] - [id number] - [id number] Implanted:Qty: 1 on 10/20/2024 [facility]/08/2028SY60WF.190 / [id number] / N/ANeuro Stimulator-11/08/2020 Implanted:Qty: 1 on 11/08/2020Neuro StimulatorMEDTRONIC SPINAL AND BIOLOGICS [id number] / [id number] / Neck And Back Clips From Fusion Procedures Procedure NamePriorityDate/TimeAssociated DiagnosisCommentsPOCT EKGRoutine 05/14/2025 Essential hypertension, benign AMB REFERRAL TO PAIN WZMQXETVZMEmzvecq65/01/2025EGD / COLONOSCOPYRoutine 04/29/2025 10:28 AM UDCLVKMqyfyav13/29/2025 8:38 AM EDT Essential hypertension, benign LIPID XTCLSVCFigituk96/29/2025 8:38 AM EDT Essential hypertension, benign COMPREHENSIVE METABOLIC STZFJEuofcdk34/29/2025 8:38 AM EDT Essential hypertension, benign CBC WITH AUTO HPWPWMDBTLOXJccbkqx23/29/2025 8:38 AM EDT Essential hypertension, benign US RETROPERITONEAL GQGUHQYHWfckaqd67/06/2024 9:55 AM EST Urine retention HM DIABETES EYE FHAIZfwqlve65/22/2024 11:24 AM AKXHKUBIKTQWKRBctnhwj04/21/2008 from Last 3 Months or Most Recently Relevant to Health Maintenance Results * POCT EKG (05/14/2025) Narrative Authorizing ProviderResult TypeResult StatusRonny Horton MDECG ORDERABLES Final ResultPerforming OrganizationAddressCity/State/ZIP CodePhone Number MANUALLY TRANSCRIBED RESULTS * Ambulatory referral to Pain Management ([facility]) (05/10/2025)Specimen (Source)Anatomical Location / LateralityCollection Method / VolumeCollection TimeReceived Time05/10/2025 Narrative Authorizing ProviderResult TypeResult StatusMaricel Dinh MARBLEIZING MACHINE TENDER-CNPOUTPATIENT REFERRAL ORDERABLESFinal ResultPerforming OrganizationAddressCity/State/ZIP Code Phone Number MANUALLY TRANSCRIBED RESULTS * EGD / Colonoscopy (04/29/2025 10:28 AM EST) Narrative Authorizing ProviderResult TypeResult StatusNot In System Ref ProvGI PROCEDURE ORDERABLESFinal ResultPerforming OrganizationAddressCity/State/ZIP CodePhone Number MANUALLY TRANSCRIBED RESULTS * CBC auto differential (04/07/2025 8:38 AM EDT)ComponentValueRef RangeTest MethodAnalysis TimePerformed AtPathologist SignatureWBC6.24 - 11 x10E9/L 04/07/2025 1:53 PM [facility] LABORATORYRBC Count4.614.1 - 5.7 X10E12/L1 1:53 PM [facility] Utyrzfkwub42.613 - 17 g/dL04/07/2025 1:53 PM [facility] PUIQBJJDTGEeilpakoac12.639 - 50 %04/07/2025 1:53 PM [facility] GTQFRTHBPHLMA5288 - 100 fL04/07/2025 1:53 PM [facility] XVVCPSMQJDYAA08.527 - 34 pg04/07/2025 1:53 PM [facility] MJQERSKKLUYYYA81.532 - 36 g/dL04/07/2025 1:53 PM [facility] PUEPWSYQWSLBR68.311.5 - 15 %04/07/2025 1:53 PM [facility] LABORATORYPlatelet Eajef649737 - 450 X10E9/L1 1:53 PM [facility] LABORATORYMPV9.27 - 12 fL04/07/2025 1:53 PM [facility] LABORATORYNeutrophils %54.4%04/07/2025 1:53 PM [facility] LABORATORYLymphocytes %28.7%04/07/2025 1:53 PM [facility] LABORATORYMonocytes %12.6%04/07/2025 1:53 PM [facility] LABORATORYEosinophils %3.7%04/07/2025 1:53 PM [facility] LABORATORYBasophils %0.6%04/07/2025 1:53 PM [facility] LABORATORYNeutrophils Absolute (A)3.41.5 - 6.6 10*3/uL 04/07/2025 1:53 PM [facility] LABORATORYLymphocytes Absolute 1.81.0 - 3.5 10*3/uL04/07/2025 1:53 PM [facility] Monocytes Absolute0.80.0 - 0.9 10*3/uL04/07/2025 1:53 PM [facility] LABORATORYEosinophils Absolute0.20.0 - 0.4 10*3/uL04/07/2025 1:53 PM [facility] LABORATORYBasophils Absolute0.00.0 - 0.2 10*3/uL 04/07/2025 1:53 PM [facility] LABORATORYDifferential Type AUTOMATED UPUGWMWSKEJL10/29/2025 1:53 PM [facility] LABORATORYSpecimen (Source)Anatomical Location / LateralityCollection Method / VolumeCollection TimeReceived TimeBloodVenous blood / UnknownVenipuncture / Uluwpgo0904/07/2025 8:38 AM EDT1 8:38 AM EDT Narrative Authorizing ProviderResult TypeResult StatusWilly FRANKLIN BLOOD ORDERABLESFinal ResultPerforming OrganizationAddressCity/State/ZIP CodePhone Number [facility] [address] [place] [address] [address] [place] [address], * TSH (04/07/2025 8:38 AM EDT)ComponentValueRef RangeTest MethodAnalysis Time Performed AtPathologist SignatureTSH2.230.49 - 4.67 uIU/mL04/07/2025 2:30 PM [facility] LABORATORYSpecimen (Source)Anatomical Location / LateralityCollection Method / VolumeCollection TimeReceived TimeBloodVenous blood / UnknownVenipuncture / Corrjcj5904/07/2025 8:38 AM EDT1 8:38 AM EDT Narrative Authorizing ProviderResult TypeResult StatusWilly FRANKLIN BLOOD ORDERABLESFinal ResultPerforming OrganizationAddressCity/State/ZIP CodePhone Number [facility] [address] [address] [place] [phone], * (ABNORMAL) Lipid profile (04/07/2025 8:38 AM EDT)ComponentValueRef RangeTest MethodAnalysis TimePerformed AtPathologist TddmlkjiqZAFJJFVOLHY911(H)150 - 200 mg/dL04/07/2025 2:25 PM [facility] CXCNKWVIVABOWLHEZANTWD911 (H)27 - 150 mg/dL04/07/2025 2:25 PM [facility] LABORATORYHDL ETPEBIPASDN85(L)>39 mg/dL04/07/2025 2:25 PM [facility] LABORATORYComment: HDL <40 mg/dL - High Risk HDL > or = 40mg/dL- Desirable HDL >60 mg/dL - Negative Risk LDL (CALC)147(H)<130 mg/dL04/07/2025 2:25 PM [facility] LABORATORYComment: LDL <100 mg/dL - Desirable LDL >160 mg/dL - High Risk CHOLESTEROL:HDL6.8(H)1.0 - 5.010 2:25 PM [facility] LABORATORYVERY LOW CIYCORDHMOC50(H)0 - 30 mg/dL04/07/2025 2:25 PM [facility] LABORATORYSpecimen (Source)Anatomical Location / Laterality Collection Method / VolumeCollection TimeReceived TimeBloodVenous blood / UnknownVenipuncture / Edgvcmq1104/07/2025 8:38 AM EDT1 8:38 AM EDT Narrative Authorizing ProviderResult TypeResult StatusWilly FRANKLIN BLOOD ORDERABLESFinal ResultPerforming OrganizationAddressCity/State/ZIP CodePhone Number [facility] [address] [place] [address], * (ABNORMAL) Comprehensive metabolic panel (04/07/2025 8:38 AM EDT)Component ValueRef RangeTest MethodAnalysis TimePerformed AtPathologist SignatureSODIUM 677694 - 146 mmol/L1 2:25 PM [facility] POTASSIUM4.33.5 - 5.0 mmol/L1 2:25 PM [facility] VXNMWPZVIBMXLPRROQ45818 - 109 mmol/L1 2:25 PM [facility] LABORATORYCARBON YHROOLQ8748 - 32 mmol/L1 2:25 PM [facility] LABORATORYANION NXP295 - 15 mmol/L1 2:25 PM EDT [facility] LABORATORYBLOOD UREA XLOZIYUS71(H)5 - 27 mg/dL 04/07/2025 2:25 PM [facility] LABORATORYCREATININE1.34(H)0.60 - 1.30 mg/dL04/07/2025 2:25 PM [facility] LABORATORYComment: METHOD TRACEABLE TO IDMS PHYLXRLELLLORFV020(H)65 - 99 mg/dL04/07/2025 2:25 PM [facility] LABORATORYCALCIUM9.38.5 - 10.5 mg/dL04/07/2025 2:25 PM [facility] LABORATORYTOTAL PROTEIN7.86.0 - 8.0 g/dL 04/07/2025 2:25 PM [facility] LABORATORYALBUMIN4.33.2 - 5.3 g/dL04/07/2025 2:25 PM [facility] LABORATORYALKALINE UNFPBCBMULV4730 - 130 U/L1 2:25 PM [facility] YWYALRISNERWB38(H)<=41 U/L1 2:25 PM [facility] NXNRGFSDJJMID10(H)<=40 U/L1 2:25 PM [facility] LABORATORYBILIRUBIN,TOTAL0.70.3 - 1.2 mg/dL04/07/2025 2:25 PM [facility] LABORATORYEGFR Non-Race Fgfkkdccr59(L)>=60 ml/min/1.73sq.m 04/07/2025 2:25 PM [facility] LABORATORYComment: Reported eGFR is based on the CKD-EPI 2020 equation that does not use a race coefficient. Specimen (Source)Anatomical Location / LateralityCollection Method / Volume Collection TimeReceived TimeBloodVenous blood / UnknownVenipuncture / Unknown 04/07/2025 8:38 AM EDT1 8:38 AM EDT Narrative Authorizing ProviderResult TypeResult StatusWilly FRANKLIN BLOOD ORDERABLESFinal ResultPerforming OrganizationAddressCity/State/ZIP CodePhone Number [facility] [address] [place] [address], [place] [phone] * Ultrasound retroperitoneal complete (04/15/2024 9:55 AM [...] on 04/15/2024 12:14 PM Authorizing ProviderResult TypeResult StatusAdi Narvaez MDNORTHSIDE HOSPITAL ATL[facility] ORDERABLES Final Result * DIABETES EYE EXAM (03/31/2024 11:24 AM EDT) Narrative Authorizing ProviderResult TypeResult StatusNot In System Ref Desire2LearnTRIHEALTH [facility] MAINTENANCEFinal ResultPerforming OrganizationAddressCity/State/ZIP CodePhone Number MANUALLY TRANSCRIBED RESULTS * Colonoscopy (04/30/2008) Narrative Authorizing ProviderResult TypeResult StatusNot In System Ref Prov PROCEDURE ORDERABLESFinal ResultPerforming OrganizationAddressCity/State/ZIP CodePhone Number [facility] [address] [facility] [place] [address] from Last 3 Months or Most Recently Relevant to Health Maintenance Insurance Care Teams Team MemberRelationshipSpecialtyStart DateEnd Date Willy Conteh MD [address] [place] [address] PCP - GeneralInternal Medicine10/05/24
--- OUTSIDE RECORDS SUMMARY | 2025-06-07 06:52 | XMS_ITS | Clinical Summary ---
Author Organization [facility] Address [address] [place] [address] Phone Care Team Providers Care Marketing Program Coordinator Name Role Phone David Pérez MD Primary Care Provider Unavailable Social History Tobacco UseTypesPacks/DayYears UsedDateSmoking Tobacco: Never AssessedSex and Gender InformationValueDate RecordedSex Assigned at BirthNot on fileLegal Sex Male05/04/2022 8:27 PM ESTGender IdentityNot on fileSexual OrientationNot on file Plan of Treatment Health MaintenanceDue DateLast DoneCommentsCT Jmgqumpbanxi40/03/1955FIT-DNA (Cologuard)1954FIT1954Lipid Panel1954Medicare Annual Wellness Visit (AWV)1955 5747Ecevhohyverwh07/03/1955TSH Level1954MMR Vaccines (1 of 1 - Standard series)08/11/1955Hepatitis C Wycjiqpcs10/03/1973Hepatitis A Vaccines (1 of 2 - Risk 2-dose series)1973Pneumococcal Vaccine (1 of 1 - PCV)2004RSV High Risk: (Elderly (60+) or Population) (1 - Risk 50-74 years 1-dose series)2004Zoster Vaccines (1 of 2)2004Hepatitis B Vaccines (1 of 3 - Risk 3-dose series)2014DTaP/Tdap/Td Vaccines (2 - Td or Tdap)/COVID-19 Vaccine ( - 2024- season)2025 05/23/2022, 04/27/2021, 09/05/2020, Additional history existsInfluenza Vaccine (#1)511/, 04/23/2022, 06/05/2021, Additional history exists Diabetes Uwmidzyjj16/12/2023, 03/29/2023, 1Colonoscopy Colorectal Cancer Ofnzitftm26/26/2030HIB VaccinesAged OutNo longer eligible based on patient's [...] this topic Procedures Procedure NamePriorityDate/TimeAssociated DiagnosisCommentsCOMPREHENSIVE METABOLIC FUBNZXarlebf26/07/2024 2:51 PM EDT Encounter for preprocedural laboratory examination from Last 3 Months or Most Recently Relevant to Health Maintenance Results * (ABNORMAL) Comprehensive Metabolic Panel (01/15/2024 2:51 PM EDT)Component ValueRef RangeTest MethodAnalysis TimePerformed AtPathologist SignatureGlucose 119(H)74 - 99 mg/dL LAB CHEMISTRY METHOD 01/15/2024 3:20 PM [facility] UNGRlxulm781674 - 145 mmol/L LAB CHEMISTRY METHOD 01/15/2024 3:20 PM [facility] LABPotassium4.73.5 - 5.3 mmol/L LAB CHEMISTRY METHOD 01/15/2024 3:20 PM [facility] LZJKfvzaqeg20453 - 107 mmol/L LAB CHEMISTRY METHOD 01/15/2024 3:20 PM [facility] ZSQGswhkgaqcvj5250 - 32 mmol/L LAB CHEMISTRY METHOD 01/15/2024 3:20 PM [facility] LABAnion Eii1190 - 20 mmol/L LAB CHEMISTRY METHOD 01/15/2024 3:20 PM [facility] LABUrea Cnuvhxeq43(H)6 - 23 mg/dL LAB CHEMISTRY METHOD 01/15/2024 3:20 PM [facility] LABCreatinine1.49(H)0.50 - 1.30 mg/dL LAB CHEMISTRY METHOD 01/15/2024 3:20 PM [facility] HTXrQFV76(L)>60 mL/min/1.73m*2 LAB CHEMISTRY METHOD 01/15/2024 3:20 PM [facility] LABComment: Calculations of estimated GFR are performed using the 2020 CKD-EPI Study Refit equation without therace variable for the IDMS-Traceable creatinine methods. https://jasn.asnjournals.org/content/early//ASN.7912239231 Calcium8.98.6 - 10.3 mg/dL LAB CHEMISTRY METHOD 01/15/2024 3:20 PM [facility] LABAlbumin3.93.4 - 5.0 g/dL LAB CHEMISTRY METHOD 01/15/2024 3:20 PM [facility] LABAlkaline Ipfnujgthhk6559 - 136 U/L LAB CHEMISTRY METHOD 01/15/2024 3:20 PM [facility] LABTotal Protein6.96.4 - 8.2 g/dL LAB CHEMISTRY METHOD 01/15/2024 3:20 PM [facility] EBUOQH859 - 39 U/L LAB CHEMISTRY METHOD 01/15/2024 3:20 PM [facility] LABBilirubin, Total0.40.0 - 1.2 mg/dL LAB CHEMISTRY METHOD 01/15/2024 3:20 PM [facility] EBDVBQ8102 - 52 U/L LAB CHEMISTRY METHOD 01/15/2024 3:20 PM [facility] LABComment:Patients treated with Sulfasalazine may generate falsely decreased results for ALT.Specimen (Source) Anatomical Location / LateralityCollection Method / VolumeCollection Time Received TimeBloodVenous blood specimen / UnknownVenipuncture / Unknown 01/15/2024 2:51 PM EDT01/15/2024 2:53 PM EDT Narrative Authorizing ProviderResult TypeResult StatusNicMobile [facility] BLOOD ORDERABLESFinal ResultPerforming OrganizationAddressCity/State/ZIP CodePhone Number [facility] [address] [place] [address] from Last 3 Months or Most Recently Relevant to Health Maintenance Insurance Care Teams Team MemberRelationshipSpecialtyStart DateEnd Date David Pérez MD PCP - [facility]04/02/23
--- OUTSIDE RECORDS SUMMARY | 2025-06-07 06:52 | XMS_ITS | Clinical Summary ---
Author Organization [facility] Address [address] [place] [address] Care Team Providers Care Enrobing Machine Corder Name Role Phone David Pérez MD Primary [...] tablet Take 10 mg by mouth at rqyapge8606/10/2023ctive gabapentin (Neurontin) 300 MG capsule Indications:Acute pain of left shoulderTAKE 2 CAPSULES IN THE MORNING, 1 CAPSULE IN THE AFTERNOON AND 2 CAPSULES AT BEDTIME, 90 Days. Due now 450 capsule 5Active Active Problems ProblemNoted DateDiagnosed DateChronic midline low back pain without sciatica 07/17/2024ilateral hip pain07/17/2024ilateral knee pain07/17/2024Psoriatic arthritis of multiple fvksoz945Acute pain of left hxikmfpu08/08/2023S/P reverse total shoulder arthroplasty, left04/17/2023Osteoarthritis of left glenohumeral joint, secondary to rotator cuff tear12/19/2022 Resolved Problems ProblemNoted DateDiagnosed DateResolved DateRotator cuff arthropathy of left doqlmkip95 Family History Medical HistoryRelationNameCommentsHeart diseaseFatherLeukemiaFatherDiabetes MotherHeart diseaseMotherHypertensionMotherCancerOtherDiabetesOtherHeart disease OtherHypertensionOtherRelationNameStatusCommentsFatherDeceasedMotherDeceased Other Social History Tobacco UseTypesPacks/DayYears UsedDateSmoking Tobacco: Some DaysCigarettesLast attempted to quit: 06/10/2004CigarsSmokeless Tobacco: Never Tobacco Cessation:Ready to Q uit: Not Asked Comments:smoke 1-2 cigars / week Alcohol UseStandard Drinks/WeekCommentsNot Currently0 (1 standard drink = 0.6 oz pure alcohol)Sex and Gender InformationValueDate RecordedSex Assigned at Male07/08/2022 1:04 PM EDTLegal AuiOywu7708/22/2022 7:21 PM EDTGender IdentityMale 12/10/2022 1:04 PM EDTSexual PfsamwxmrgwAhrhagke43/03/2023 1:04 PM EDT Last Filed Vital Signs Vital SignReadingTime TakenCommentsBlood Ixguwisw611/78008/17/2024 12:03 PM EDT Pulse--Temperature--Respiratory Jedv6924 12:09 PM EDTOxygen Saturation-- Inhaled Oxygen Concentration--Kbogpe417 kg (268 lb)08/17/2024 12:03 PM EDTHeight 182.9 cm (6')08/17/2024 12:03 PM EDTBody Mass Index36.35008/17/2024 12:03 PM EDT Plan of Treatment Not on file Insurance Care Teams Team MemberRelationshipSpecialtyStart DateEnd David Pérez MD PCP - GeneralFamily Xtuqaevj74/20/23 Alireza Billingsley MD Referring PhysicianNeurology08/20/23
--- OUTSIDE RECORDS SUMMARY | 2025-06-07 06:52 | XMS_ITS | Patient Health Record ---
Author Organization [facility] Address [address] [place], [place] [id number] Care Team Providers Care Pot Puncher Name Role Phone Kyra Portillo Unavailable [phone] Gilberto Sifuentes Unavailable [phone] Corry Lai Unavailable [phone] Allergies No Known Allergies Reason For Referral No Information Medications Medication SIG (Take, Route, Frequency, Duration) Notes Start Date End Date Status Atenolol 100 MG Tablet 1 tablet Orally Once a da y ActiveMultivitamin - Tablet1 tablet Orally Once a cwiXwjcxzkfugjLFVBzvxc1756 mg twice dailyActiveVitamin D1000 dailyActiveSimponi Zokc802uj every 8 wks.Active Rrychytmntmau5620 mg twice dailyActiveCitalopram & Diet Manage Prod40 [...] W/U Status Risk Notes Problem Tobacco user (444121526) Cigaret te nicotine dependence without complication (F17.210) ActiveconfirmedProblemObese class II (011488796632811)BMI 36.0-36.9,adult (Z68.36)Activeconfirmed Vital Signs Heart Rate 71 /min 03/31/2025 Blood pressure topooxfgc90 mm Hg03/31/2025Height-cm180.34 cm03/31/2025Weight-kg 117.94 kg03/31/20252710Iqtfwj23 in03/31/2025lood pressure gyawwwsw771 mm Hg 03/31/20258376Apcfox531 lbs1MI36.26 kg/m203/31/2025 Encounters Encounter Location Date Provider Diagnosis [facility] [address] [place], [place] [id number] 12/28/2024 Corry Lai Dental caries into dentine K02.62 ; Caries of dentin K02.62 ; BMI 36.0-36.9,adult Z68.36 ; Cigarette nicotine dependence without complication F17.210 ; Encounter for screening for dental disorders Z13.84 and Encounter for dental examination and cleaning with abnormal findings Z01.21 [facility] [address] [place], [place] [id number] 01/04/2025 Gilberto Sifuentes BMI 36.0-36.9,adul t Z68.36 ; Encounter for dental examination and cleaning with abnormal findings Z01.21 ; Cigarette nicotine dependence without complication F17.210 ; Dietary counseling Z71.3 and Exercise counseling Z71.82 [facility] [address] [place], [place] [id number] 03/08/2025 Kyra Portillo Dental caries into dentine K02.62 [facility] [address] [place], [place] [id number] 03/31/2025 Kyra Portillo BMI 36.0-36.9,adul t Z68.36 [...] without complication (ICD-10 - F17.210)Patient provided with [phone] phone line. Patient provided with [phone] phone line.01/04/2025Dietary counseling (ICD-10 - Z71.3)12/28/2024igarette nicotine dependence without complication (ICD-10 - F17.210)Patient provided with [phone] phone line.12/28/2024 Encounter for screening for dental disorders (ICD-10 - Z13.84)01/04/2025Exercise counseling (ICD-10 - Z71.82)12/28/2024Encounter for dental examination and cleaning with abnormal findings (ICD-10 - Z01.21) Plan Of Treatment Next Appt Details Provider Name:Gilberto Hardingkrunal , 07/16/2025 09:45:00 AM, [address] [place], [place], [id number], Insurance Providers Payer Name Payer Address Payer Phone Subscriber Number Group Number Insured Name Patient Relationship to Insured Coverage Start Date Coverage End Date DAetna Fee Schedule [address] [place], [place] [phone] [id number], JeffreySelf - patient is the hushtuh04 2025 Medical (General) History Medical History History ICD Code Diabetes High Blood pressureAnxietyNerve problemsArthritis
--- OUTSIDE RECORDS SUMMARY | 2025-06-07 06:53 | XMS_ITS | Patient Health Record ---
Author Organization [facility] [place] Address [address] [place] [address] Care Team Providers Care Vba Developer Name Role Phone None, Unknown or Primary Care Provider Unavailab le Reason For Referral No Information Plan Of Treatment No Information
[2025-06-07 06:54] VITALS: BP 140/73; PULSE 69; TEMP 36.6; O2SAT 94
[2025-06-07] MEDS: IOHEXOL 240 MG/ML - 10 ML VIAL 24 MG INJ (07:45)
[2025-06-07] MEDS: LIDOCAINE HCL 2% 400 MG/20 ML MDV INJ (07:45)
[2025-06-07] MEDS: BUPIVACAINE HCL 0.25% PF 25 MG/10 ML VIAL 4 ML INJ (07:45)
[2025-06-07] MEDS: METHYLPREDNISOLONE ACETATE 40 MG/ML VIAL 80 MG INJ (07:45)
--- NOTE | 2025-06-07 07:47 | W.PM.PROCNOT ---
Date of procedure: 06/07/25 Pre-op diagnosis: Pain due to bilateral sacroiliitis Post-op diagnosis: same as pre-op Procedure: Procedure: Bilateral sacroiliac joint injection Medications: Bupivacaine 0.25% 4cc, depomedrol 40mg x2 After informed consent was obtained, the patient was brought to the medical procedure unit and placed in the prone position, when a timeout was completed verifying correct patient, procedure, site, positioning, implant, and/or special equipment.? The skin overlying the area was prepped and draped in standard sterile fashion using alcohol.? A 25-gauge needle was inserted towards the left sacroiliac joint under direct fluoroscopic imaging.? Needle tip was advanced until the joint was encountered.? We instilled a total of 2 mL of solution.? The same procedure was then completed on the right side.? Postoperatively needles were removed.? The patient tolerated the procedure well without complication.? The patient reported reduction in pain symptoms postoperatively. Anesthesia: Local Surgeon: Rebecca Zavala Pathology: none sent Condition: stable Disposition: no change
[2025-06-07 11:03] VITALS: BP 123/62; BP 146/75; PULSE 68; PULSE 70; O2SAT 97; O2SAT 98
== END 2025-06-07 07:55 | disposition home or self-care (01) ==
PROVIDERS: PCP Family Medicine; Visit Provider Anesthesiology
DX: M46.1 Sacroiliitis, not elsewhere classified (principal); G89.29 Other chronic pain; E11.8 Type 2 diabetes mellitus with unspecified complications
CPT/HCPCS: 27096; 36415; 82948; J0665; J1010; Q9966